=== PATIENT | male | born 1940 | race Caucasian/White ===

== ENCOUNTER 2016-05-03 01:45 | Emergency (ER) | payer OTHER ==
[2016-05-03] MEDS ORDERED: ASPIRIN 81 MG CHEWABLE TAB PO ONE (01:55)
--- NOTE | 2016-05-03 01:59 | CPEKG ---
Heart Rate: 87 RR Interval: 690 P-R Interval: 156 QRSD Interval: 104 QT Interval: 432 QTC Interval: 520 P [place]: 62 QRS [place]: -11 T Wave [place]: 35 EKG Severity - ABNORMAL ECG - EKG Impression: SINUS RHYTHM EKG Impression: MULTIPLE VENTRICULAR PREMATURE COMPLEXES EKG Impression: PROBABLE LEFT ATRIAL ABNORMALITY EKG Impression: PROLONGED QT INTERVAL Electronically Signed By: Althea Conte 03-May-2016 07:37:02
[2016-05-03 02:00] LABS: % IMMATURE GRANULYOCYTES 0.4 % (0.0-1.1); ABSOLUTE IMMATURE GRANULOCYTES 0.04 10^3/uL (0.00-0.10); ADD DIFF? NO; ADD MORPH? NO; ADD SCAN? NO; ATYPICAL LYMPHOCYTE FLAG 0 (0-99); FRAGMENT RBC FLAG 0 (0-99); HEMATOCRIT 35.1 % (40.0-51.0); HEMOGLOBIN 10.9 g/dL (13.7-17.5); LEFT SHIFT FLG 0 (0-99); LIPEMIA HEMOLYSIS FLAG 80 (0-99); MEAN CELL HEMOGLOBIN 29.6 pg (27.9-34.1); MEAN CELL HEMOGLOBIN CONCENTR. 31.1 g/dL (32.4-36.7); MEAN CELL VOLUME 95.4 fL (81.5-99.8); MEAN PLATELET VOLUME 10.1 fL (8.7-11.7); PLATELET CLUMPS FLAG 10 (0-99); PLATELET COUNT 211 10^3/uL (150-400); RED BLOOD CELL COUNT 3.68 10^6/uL (4.40-6.38); RED CELL DISTRIBUTION WIDTH 13.7 % (11.5-15.2)
[2016-05-03 02:10] LABS: ANION GAP 14 mEq/L (8-16); CALCIUM 9.1 mg/dL (8.5-10.4); CARBON DIOXIDE 31 mEq/l (22-31); CHLORIDE 95 mEq/L (97-110); CREATININE 5.5 mg/dL (0.7-1.3); GLOMERULAR FILTRATION RATE 10; GLUCOSE 266 mg/dL (70-100); POTASSIUM 4.6 mEq/L (3.5-5.2); SODIUM 140 mEq/L (134-144)
[2016-05-03 02:22] LABS: TROPONIN I 0.028 ng/mL (0-0.034)
[2016-05-03 02:29] LABS: INR 1.06 (0.83-1.16); PROTIME(PATIENT) 13.7 SEC (12.0-15.0)
--- NOTE | 2016-05-03 04:57 | EDPHY ---
H & P Stated Complaint: CP beginning at 0000 tonight Time Seen by Provider: 05/03/16 01:48 HPI/ROS: HPI The patient presents brought in by ambulance for chest pain which began at approximately midnight tonight while he was lying in bed. The pain is left- sided, sharp in nature, does not radiate and has gotten progressively better since the onset. He has had 2 or 3 episodes of this pain in the past. He does not have shortness of breath, nausea, vomiting, diaphoresis, dizziness. He is brought in by ambulance and received nitroglycerin in the field. The patient was admitted in February of 2016 for similar chest pain. He had a workup with negative troponins and EKGs. 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 The cardiac catheterization was not performed as it was thought that his chest pain was noncardiac. His chest pain was thought to be due to his advanced pulmonary disease. REVIEW OF SYSTEMS Constitutional: No fever, no chills. Eyes: No discharge. ENT: No sore throat. Cardiovascular: +chest pain, no palpitations. Respiratory: No cough, no shortness of breath. Gastrointestinal: No abdominal pain, no vomiting. Genitourinary: No hematuria. Musculoskeletal: No back pain. Skin: No rashes. Neurological: No headache. PMHx: End-stage renal disease, diabetes, known CAD Soc Hx: Lives at [facility] PHYSICAL General Appearance: Alert, no distress Eyes: Pupils equal and round no pallor or injection ENT, Mouth: Mucous membranes moist Respiratory: There are no retractions, lungs are clear to auscultation Cardiovascular: Regular rate and rhythm Gastrointestinal: Abdomen is soft and non-tender, no masses, bowel sounds normal Neurological: A&O, moves all extremities Skin: Warm and dry, no rashes Musculoskeletal: Neck is supple non tender Extremities: symmetrical, full range of motion, AV fistula with palpable thrill in left upper extremity Psychiatric: Patient is oriented X 3, there is no agitation Source: Patient, EMS - Personal History Current Tetanus/Diphtheria Vaccine: Unsure Current Tetanus Diphtheria and Acellular Pertussis (TDAP): Unsure - Medical/Surgical History Hx Asthma: No Hx Chronic Respiratory Disease: Yes Hx Diabetes: Yes Hx Cardiac Disease: Yes Hx Renal Disease: Yes Hx Cirrhosis: No Hx Alcoholism: No Hx HIV/AIDS: No Hx Splenectomy or Spleen Trauma: No Other PMH: dementia, renal failure, DM2, HTN, COPD, GERD, chronic resp failure, orthostatic hypotension, hx falls - Social History Smoking Status: Unknown if ever smoked Constitutional: Initial Vital Signs Temperature (C) 37.4 C 05/03/16 01:47 Heart Rate 86 05/03/16 01:47 Respiratory Rate 18 05/03/16 01:47 Blood Pressure 133/78 H 05/03/16 01:47 O2 Sat (%) 92 05/03/16 01:47 O2 Delivery Mode Nasal Cannula O2 (L/minute) 6 Allergies/Adverse Reactions: lisinopril Allergy (Verified 11/14/15 06:13) Home Medications: Medication Instructions Recorded Acetaminophen [Tylenol 325mg (*)] 650 mg PO Q6 PRN 11/14/15 Pantoprazole Sodium [Protonix] 20 mg PO DAILY 11/14/15 QUEtiapine FUMARATE [Seroquel 25 12.5 mg PO HS 11/14/15 mg (*)] Ondansetron Odt [Zofran Odt 4 mg 4 mg PO Q6 PRN 01/01/16 (*)] Sodium Polystyrene Sulfonate 5 gm PO DAILY #0 powder 01/07/16 [Kayexalate] Atorvastatin Calcium 10 mg PO DAILY #30 tablet 02/16/16 Clopidogrel Bisulfate [Plavix (*)] 75 mg PO DAILY 02/16/16 Escitalopram Oxalate [Lexapro] 20 mg PO DAILY 02/16/16 Gabapentin [Neurontin 100 MG (*)] 100 mg PO BID 02/16/16 Insulin Glargine [Lantus 100 20 units SC HS 02/16/16 UNITS/ML (*)] Insulin Lispro [Humalog] 0 - 12 unit SQ BID 02/16/16 Ipratropium/Albuterol [Duoneb (*)] 3 ml IH Q6 PRN 02/16/16 Ipratropium/Albuterol [Duoneb (*)] 3 ml IH QID #0 deyvial 02/16/16 Lactulose 20 gm PO DAILY PRN 02/16/16 Metoprolol Succinate 25 mg PO DAILY 02/16/16 Nitroglycerin [Nitrostat 0.4 mg 0.4 mg SL Q5M PRN 02/16/16 (*)] [place]-3 Fatty Acids [Fish Oil 1000 1,000 mg PO DAILY 02/16/16 mg (*)] Pantoprazole Sodium [Protonix 40mg 40 mg PO DAILY 02/16/16 (*)] Polyethylene Glycol 3350 [Miralax 17 gm PO DAILY PRN 02/16/16 17 gm (*)] Medical Decision Making - Diagnostics EKG Interpretation: EKG: Complete interpretation has been separately recorded in the [employer] archive. Summary impression: Normal sinus rhythm, no ST segment changes Imaging: Chest x-ray two views demonstrates cardiomegaly, unchanged from prior chest x- ray, interpreted by me, radiology interpretation is pending. ED Course/Re-evaluation: The patient was monitored in the emergency room for several hours. He had no ongoing chest pain. Serial troponins were negative with no EKG changes. Other labs were unremarkable except for elevated BNP which she has had previously. Chest x-ray showed no signs of pulmonary edema or fluid overload. Given the patient's recent admission for identical chest pain with negative workup and plan for medical management with no cardiac catheterization, I do not think his presentation today warrants admission. He has no ongoing pain. I doubt this pain is cardiac. I feel it is more likely related to his pulmonary disease verses muscular in nature. His vital signs have remained stable while he is here. I have offered him admission, however he declines as well. He will be discharged in good condition. Differential Diagnosis: This is a 75-year-old man from [facility] with past medical history of end- stage renal disease, chronic hypoxic respiratory failure, diabetes, CAD who presents with an episode of chest pain which is left-sided sharp and now mostly resolved. This occurred at rest, there are no other symptoms, it feels like his previous episodes of chest pain. Differential diagnosis includes ACS, musculoskeletal pain, GERD, costochondritis , less likely pulmonary embolism less likely dissection. - Data Points Laboratory Results: Laboratory Results 05/03/16 01:50 05/03/16 01:50 05/03/16 05/03/16 05/03/16 03:52 01:50 01:50 WBC RBC Hgb Hct MCV MCH MCHC RDW Plt Count MPV Neut % (Auto) Lymph % (Auto) [place] % (Auto) Eos % (Auto) Baso % (Auto) Nucleat RBC Rel Count Absolute Neuts (auto) Absolute Lymphs (auto) Absolute Monos (auto) Absolute Eos (auto) Absolute Basos (auto) Absolute Nucleated RBC Immature Gran % Immature Gran # PT 13.7 SEC SEC (12.0-15.0) INR 1.06 (0.83-1.16) Sodium 140 mEq/L mEq/L (134-144) Potassium 4.6 mEq/L mEq/L (3.5-5.2) Chloride 95 mEq/L L mEq/L (97-110) Carbon Dioxide 31 mEq/l mEq/l (22-31) Anion Gap 14 mEq/L mEq/L (8-16) BUN 37 mg/dL H mg/dL (7-23) Creatinine 5.5 mg/dL H mg/dL (0.7-1.3) Estimated GFR 10 Glucose 266 mg/dL H mg/dL (70-100) Calcium 9.1 mg/dL mg/dL (8.5-10.4) Troponin I 0.034 ng/mL ng/mL 0.028 ng/mL ng/mL (0-0.034) (0-0.034) NT-Pro-B Natriuret Pep 2290 pg/mL H pg/mL (0-450) 05/03/16 01:50 WBC 11.15 10^3/uL H 10^3/uL (3.80-9.50) RBC 3.68 10^6/uL L 10^6/uL (4.40-6.38) Hgb 10.9 g/dL L g/dL (13.7-17.5) Hct 35.1 % L % (40.0-51.0) MCV 95.4 fL fL (81.5-99.8) MCH 29.6 pg pg (27.9-34.1) MCHC 31.1 g/dL L g/dL (32.4-36.7) RDW 13.7 % % (11.5-15.2) Plt Count 211 10^3/uL 10^3/uL (150-400) MPV 10.1 fL fL (8.7-11.7) Neut % (Auto) 81.6 % H % (39.3-74.2) Lymph % (Auto) 7.8 % L % (15.0-45.0) [place] % (Auto) 6.2 % % (4.5-13.0) Eos % (Auto) 3.6 % % (0.6-7.6) Baso % (Auto) 0.4 % % (0.3-1.7) Nucleat RBC Rel Count 0.0 % % (0.0-0.2) Absolute Neuts (auto) 9.10 10^3/uL H 10^3/uL (1.70-6.50) Absolute Lymphs (auto) 0.87 10^3/uL L 10^3/uL (1.00-3.00) Absolute Monos (auto) 0.69 10^3/uL 10^3/uL (0.30-0.80) Absolute Eos (auto) 0.40 10^3/uL 10^3/uL (0.03-0.40) Absolute Basos (auto) 0.05 10^3/uL 10^3/uL (0.02-0.10) Absolute Nucleated RBC 0.00 10^3/uL 10^3/uL (0-0.01) Immature Gran % 0.4 % % (0.0-1.1) Immature Gran # 0.04 10^3/uL 10^3/uL (0.00-0.10) PT INR Sodium Potassium Chloride Carbon Dioxide Anion Gap BUN Creatinine Estimated GFR Glucose Calcium Troponin I NT-Pro-B Natriuret Pep Medications Given: Discontinued Medications Aspirin (Aspirin) 324 mg PO EDNOW ONE Stop: 05/03/16 01:56 Last Admin: 05/03/16 02:07 Dose: 324 mg Departure - Departure Disposition: Home, Routine, Self-Care Clinical Impression: ESRD (end stage renal disease) Chest pain Qualifiers: Chest pain type: unspecified Qualified Code(s): R07.9 - Chest pain, unspecified Condition: Good Instructions: Chest Pain (ED) Additional Instructions: If your chest pain returns, you should return to the emergency room. Otherwise , please follow-up with your coroner forensic technician tomorrow. Referrals: AMANDA BAILEY [Primary Care Provider] - As per Instructions
[2016-05-03 05:36] VITALS: PULSE 79; RESP 19; O2SAT 92
[2016-05-03 06:17] VITALS: BP 124/82; TEMP 97.7
== END 2016-05-03 06:15 | disposition home or self-care (01) ==
LOC: EDUNIT#
DX: K21.9 Gastro-esophageal reflux disease without esophagitis (principal); I12.0 Hypertensive chronic kidney disease with stage 5 chronic kidney disease or end stage renal disease; N18.6 End stage renal disease; E11.9 Type 2 diabetes mellitus without complications; J44.9 Chronic obstructive pulmonary disease, unspecified; Z79.4 Long term (current) use of insulin

== ENCOUNTER 2016-06-05 12:30 | Inpatient (IN) | payer OTHER ==
--- NOTE | 2016-06-05 12:39 | CPEKG ---
Heart Rate: 76 RR Interval: 789 P-R Interval: 160 QRSD Interval: 100 QT Interval: 448 QTC Interval: 504 P [place]: 63 QRS [place]: 5 T Wave [place]: 40 EKG Severity - ABNORMAL ECG - EKG Impression: SINUS RHYTHM EKG Impression: MULTIPLE VENTRICULAR PREMATURE COMPLEXES EKG Impression: PROLONGED QT INTERVAL Electronically Signed By: Britni Gillespie 05-Jun-2016 23:17:54
[2016-06-05] MEDS ORDERED: ASPIRIN 81 MG CHEWABLE TAB PO ONE (12:45)
--- NOTE | 2016-06-05 12:51 | EDPHY ---
H & P Stated Complaint: abd pain/ cp HPI/ROS: HPI CHIEF COMPLAINT: Chest pain, abdominal pain HISTORY OF PRESENT ILLNESS: This patient is a 75-year-old male significant past medical history for end-stage renal disease on dialysis //wed, insulin- dependent diabetes, COPD, diastolic heart failure, CVA, lives at [facility], left arm AV fistula, presents to the emergency room with 2 major complaints left -sided chest discomfort the strep is a sharp pain also lower abdominal pain periumbilical that he describes a sharp pain. Patient states around 9:50 a.m. the patient developed lower abdominal pain very intense 10 in 10 sharp stabbing in nature. Tells me this pain moved up through his abdomen into his left side of his chest. No nausea no vomiting no fever no shortness of breath. No pleuritic pain. He does tell me he got dialysis today. Denies fever. patient was given nitroglycerin prior to arrival by hi caretakers at [facility], he tells me this relieved his chest pain. Past Medical History: End-stage renal disease, insulin-dependent diabetes, diastolic heart failure, COPD, CVA Past Surgical History: Left arm AV fistula Social History: Lives at [facility] denies daily drugs alcohol tobacco products Family History: Noncontributory ROS REVIEW OF SYSTEMS: A comprehensive 10 point review of systems is otherwise negative aside from elements mentioned in the history of present illness. Exam Constitutional appears well nontoxic, triage nursing summary reviewed, vital signs reviewed, awake/alert. Eyes normal conjunctivae and sclera, EOMI, PERRLA. HENT normal inspection, atraumatic, moist mucus membranes, no epistaxis, neck supple/ no meningismus, no raccoon eyes. Respiratory clear to auscultation bilaterally, normal breath sounds, no respiratory distress, no wheezing. Cardiovascular rate normal, regular rhythm, no murmur, no edema, distal pulses normal. Gastrointestinal soft, non-tender, no rebound, no guarding, normal bowel sounds, no distension, no pulsatile mass. Genitourinary no CVA tenderness. Musculoskeletal left upper extremity: Left upper extremity AV fistula, no midline vertebral tenderness, full range of motion, no calf swelling, no tenderness of extremities, no meningismus, good pulses, neurovascularly intact. Skin pink, warm, & dry, no rash, skin atraumatic. Neurologic awake, alert and oriented x 3, AAOx3, moves all 4 extremities equally, motor intact, sensory intact, CN II-XII intact, normal cerebellar, normal vision, normal speech. Psychiatric normal mood/affect. Heme/Lymph/Immune no lymphadenopathy. Differential diagnosis includes but is not limited to: ACS, atypical chest pain , pneumothorax, pneumonia, pulmonary embolism, aortic dissection, congestive heart failure, tumor, musculoskeletal pain, esophageal pain, GERD, peptic ulcer disease, pancreatitis Bowel obstruction, appendicitis, gallbladder disease, diverticulitis, colitis, enteritis, perforated viscus, gastritis, GERD, esophagitis, urinary tract infection, pyelonephritis, kidney stones Medical Decision Making: This patient had an IV established obtain blood work patient be placed on full delivery room clerk he will need EKG, chest x-ray check troponin, CT scan of chest and abdomen pelvis without contrast to help with delineate abdominal pain and chest pain. Re-evaluation: EKG interpretation by me on record in [facility] system. Impression time of EKG 1237 this is sinus rhythm rate of 76 PVC present. QT interval noted to be 448 otherwise I do not appreciate acute ischemic changes specifically no ST elevation, ST depression. 1332: re-examination at this time this patient is resting comfortably no acute distress. No chest pain. ED x-ray chest one view: Cardiomegaly present. Otherwise clear lung kinney. Image interpreted by myself. No free air under the diaphragm. CT scan of the chest without IV contrast. The results of the study are negative for acute abnormality The study was read by Dr. stevens I viewed the images myself on the PACS system. CT scan of the abdomen pelvis without IV contrast. The results of the study are negative for acute abnormality The study was read by Dr. stevens. I viewed the images myself on the PACS system. 1413: This patient had chest pain left-sided as well as abdominal pains unclear etiology. His troponin is negative EKG is nonischemic. X-ray does not show anything acute. His CT scans of his chest abdomen pelvis without contrast due to him being on dialysis is pending. Did tell me that he got dialysis today however his showed up and told me that he is due for dialysis tomorrow. He does not appear in any distress her volume overload. Patient be admitted to the hospitalist service I specifically spoke with Dr. Kirkpatrick who agrees to admit the patient for chest pain ACS rule out with serial troponins. Patient will most likely need dialysis tomorrow while in the hospital. It was noted that he did have slightly hyperkalemia I did give him calcium 1 amp of bicarb. No evidence that he has an acute volume overload or has life- threatening hyperkalemia at this time. His EKG is similar to his previous EKGs and has a noted prolonged QT. 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 He was complaining of very low abdominal pain and left-sided chest pain. Patient be admitted to hospitalist service for serial enzymes cardiac rule out. I do not have a great explanation for his lower abdominal pain at this time. Source: Patient, EMS - Personal History Current Tetanus Diphtheria and Acellular Pertussis (TDAP): Yes - Medical/Surgical History Hx Asthma: No Hx Chronic Respiratory Disease: Yes Hx Diabetes: Yes Hx Cardiac Disease: Yes Hx Renal Disease: Yes Hx Cirrhosis: No Hx Alcoholism: No Hx HIV/AIDS: No Hx Splenectomy or Spleen Trauma: No Other PMH: dementia, renal failure, DM2, HTN, COPD, GERD, chronic resp failure, orthostatic hypotension, hx falls - Social History Smoking Status: Unknown if ever smoked Constitutional: Initial Vital Signs Temperature (C) 36.4 C 06/05/16 12:43 Heart Rate 71 06/05/16 12:43 Respiratory Rate 22 H 06/05/16 12:43 Blood Pressure 162/71 H 06/05/16 12:43 O2 Sat (%) 92 06/05/16 12:43 O2 Delivery Mode Nasal Cannula O2 (L/minute) 4 Allergies/Adverse Reactions: lisinopril Allergy (Verified 11/14/15 06:13) Home Medications: Medication Instructions Recorded Acetaminophen [Tylenol 325mg (*)] 650 mg PO Q6 PRN 11/14/15 Pantoprazole Sodium [Protonix] 20 mg PO DAILY 11/14/15 QUEtiapine FUMARATE [Seroquel 25 12.5 mg PO HS 11/14/15 mg (*)] Ondansetron Odt [Zofran Odt 4 mg 4 mg PO Q6 PRN 01/01/16 (*)] Sodium Polystyrene Sulfonate 5 gm PO DAILY #0 powder 01/07/16 [Kayexalate] Atorvastatin Calcium 10 mg PO DAILY #30 tablet 02/16/16 Clopidogrel Bisulfate [Plavix (*)] 75 mg PO DAILY 02/16/16 Escitalopram Oxalate [Lexapro] 20 mg PO DAILY 02/16/16 Gabapentin [Neurontin 100 MG (*)] 100 mg PO BID 02/16/16 Insulin Glargine [Lantus 100 20 units SC HS 02/16/16 UNITS/ML (*)] Insulin Lispro [Humalog] 0 - 12 unit SQ BID 02/16/16 Ipratropium/Albuterol [Duoneb (*)] 3 ml IH Q6 PRN 02/16/16 Ipratropium/Albuterol [Duoneb (*)] 3 ml IH QID #0 deyvial 02/16/16 Lactulose 20 gm PO DAILY PRN 02/16/16 Metoprolol Succinate 25 mg PO DAILY 02/16/16 Nitroglycerin [Nitrostat 0.4 mg 0.4 mg SL Q5M PRN 02/16/16 (*)] [place]-3 Fatty Acids [Fish Oil 1000 1,000 mg PO DAILY 02/16/16 mg (*)] Pantoprazole Sodium [Protonix 40mg 40 mg PO DAILY 02/16/16 (*)] Polyethylene Glycol 3350 [Miralax 17 gm PO DAILY PRN 02/16/16 17 gm (*)] Medical Decision Making - Data Points Laboratory Results: Laboratory Results 06/05/16 12:40 06/05/16 12:40 06/05/16 06/05/16 06/05/16 12:40 12:40 12:40 WBC 7.98 10^3/uL 10^3/uL (3.80-9.50) RBC 4.10 10^6/uL L 10^6/uL (4.40-6.38) Hgb 11.6 g/dL L g/dL (13.7-17.5) Hct 37.6 % L % (40.0-51.0) MCV 91.7 fL fL (81.5-99.8) MCH 28.3 pg pg (27.9-34.1) MCHC 30.9 g/dL L g/dL (32.4-36.7) RDW 15.0 % % (11.5-15.2) Plt Count 184 10^3/uL 10^3/uL (150-400) MPV 10.2 fL fL (8.7-11.7) Neut % (Auto) 74.9 % H % (39.3-74.2) Lymph % (Auto) 12.7 % L % (15.0-45.0) [place] % (Auto) 7.1 % % (4.5-13.0) Eos % (Auto) 4.0 % % (0.6-7.6) Baso % (Auto) 0.9 % % (0.3-1.7) Nucleat RBC Rel Count 0.0 % % (0.0-0.2) Absolute Neuts (auto) 5.98 10^3/uL 10^3/uL (1.70-6.50) Absolute Lymphs (auto) 1.01 10^3/uL 10^3/uL (1.00-3.00) Absolute Monos (auto) 0.57 10^3/uL 10^3/uL (0.30-0.80) Absolute Eos (auto) 0.32 10^3/uL 10^3/uL (0.03-0.40) Absolute Basos (auto) 0.07 10^3/uL 10^3/uL (0.02-0.10) Absolute Nucleated RBC 0.00 10^3/uL 10^3/uL (0-0.01) Immature Gran % 0.4 % % (0.0-1.1) Immature Gran # 0.03 10^3/uL 10^3/uL (0.00-0.10) PT 13.1 SEC SEC (12.0-15.0) INR 1.00 (0.83-1.16) APTT 25.4 SEC SEC (23.0-38.0) Sodium 144 mEq/L mEq/L (134-144) Potassium 5.4 mEq/L H mEq/L (3.5-5.2) Chloride 97 mEq/L mEq/L (97-110) Carbon Dioxide 31 mEq/l mEq/l (22-31) Anion Gap 16 mEq/L mEq/L (8-16) BUN 47 mg/dL H mg/dL (7-23) Creatinine 5.7 mg/dL H mg/dL (0.7-1.3) Estimated GFR 10 Glucose 168 mg/dL H mg/dL (70-100) Calcium 9.2 mg/dL mg/dL (8.5-10.4) Magnesium 2.2 mg/dL mg/dL (1.6-2.3) Total Bilirubin 0.5 mg/dL mg/dL (0.1-1.4) Conjugated Bilirubin 0.4 mg/dL mg/dL (0.0-0.5) Unconjugated Bilirubin 0.1 mg/dL mg/dL (0.0-1.1) AST 27 IU/L IU/L (17-59) ALT 32 IU/L IU/L (21-72) Alkaline Phosphatase 72 IU/L IU/L (38-126) Creatine Kinase 31 IU/L IU/L (0-224) CK-MB (CK-2) Fraction 1.33 ng/mL ng/mL (0-3.19) Troponin I 0.023 ng/mL ng/mL (0-0.034) NT-Pro-B Natriuret Pep 1480 pg/mL H pg/mL (0-450) Total Protein 7.8 g/dL g/dL (6.3-8.2) Albumin 4.3 g/dL g/dL (3.5-5.0) Lipase 468.0 IU/L H IU/L (23-300) Medications Given: Discontinued Medications Aspirin (Aspirin) 324 mg PO EDNOW ONE Stop: 06/05/16 12:46 Last Admin: 06/05/16 12:58 Dose: Not Given Calcium Gluconate 2 gm/ (Dextrose) 70 mls @ 140 mls/hr IV EDNOW ONE Stop: 06/05/16 13:53 Last Admin: 06/05/16 14:13 Dose: 70 mls Sodium Bicarbonate (Sodium Bicarbonate) 50 meq IVP EDNOW ONE Stop: 06/05/16 13:25 Last Admin: 06/05/16 14:13 Dose: 50 meq Departure - Departure Disposition: [facility] Acute Clinical Impression: Hyperkalemia Chest pain Qualifiers: Chest pain type: unspecified Qualified Code(s): R07.9 - Chest pain, unspecified Condition: Fair
[2016-06-05 12:54] LABS: % IMMATURE GRANULYOCYTES 0.4 % (0.0-1.1); ABSOLUTE IMMATURE GRANULOCYTES 0.03 10^3/uL (0.00-0.10); ADD DIFF? NO; ADD MORPH? NO; ADD SCAN? NO; ATYPICAL LYMPHOCYTE FLAG 0 (0-99); FRAGMENT RBC FLAG 0 (0-99); HEMATOCRIT 37.6 % (40.0-51.0); HEMOGLOBIN 11.6 g/dL (13.7-17.5); LEFT SHIFT FLG 0 (0-99); LIPEMIA HEMOLYSIS FLAG 80 (0-99); MEAN CELL HEMOGLOBIN 28.3 pg (27.9-34.1); MEAN CELL HEMOGLOBIN CONCENTR. 30.9 g/dL (32.4-36.7); MEAN CELL VOLUME 91.7 fL (81.5-99.8); MEAN PLATELET VOLUME 10.2 fL (8.7-11.7); PLATELET CLUMPS FLAG 10 (0-99); PLATELET COUNT 184 10^3/uL (150-400)
[2016-06-05 13:03] LABS: PROTIME(PATIENT) 13.1 SEC (12.0-15.0)
[2016-06-05 13:04] LABS: APTT 25.4 SEC (23.0-38.0)
[2016-06-05 13:11] LABS: ALANINE AMINOTRANSFERASE 32 IU/L (21-72); ALBUMIN 4.3 g/dL (3.5-5.0); ALKALINE PHOSPHATASE 72 IU/L (38-126); ANION GAP 16 mEq/L (8-16); ASPARTATE AMINOTRANSFERASE 27 IU/L (17-59); BILIRUBIN,TOTAL 0.5 mg/dL (0.1-1.4); BILIRUBIN-CONJUGATED 0.4 mg/dL (0.0-0.5); BILIRUBIN-UNCONJUGATED 0.1 mg/dL (0.0-1.1); CALCIUM 9.2 mg/dL (8.5-10.4); CARBON DIOXIDE 31 mEq/l (22-31); CHLORIDE 97 mEq/L (97-110); CREATININE 5.7 mg/dL (0.7-1.3); GLOMERULAR FILTRATION RATE 10; GLUCOSE 168 mg/dL (70-100); MAGNESIUM 2.2 mg/dL (1.6-2.3); POTASSIUM 5.4 mEq/L (3.5-5.2); SODIUM 144 mEq/L (134-144); TOTAL PROTEIN 7.8 g/dL (6.3-8.2)
[2016-06-05 13:21] LABS: CREATINE KINASE-MB FRACTION 1.33 ng/mL (0-3.19); TROPONIN I 0.023 ng/mL (0-0.034)
[2016-06-05] MEDS ORDERED: CALCIUM GLUCONATE 2 GM in D5W 50 ML IV ONE (13:24)
[2016-06-05] MEDS ORDERED: SODIUM BICARBONATE 50 MEQ/50 ML SYR IVP ONE (13:24)
[2016-06-05] MEDS ORDERED: ZOLPIDEM TARTRATE 5 MG TAB PO PRN (14:52)
[2016-06-05] MEDS ORDERED: ONDANSETRON 4 MG/2 ML VIAL IVP PRN (14:52)
[2016-06-05] MEDS ORDERED: ACETAMINOPHEN 325 MG TAB PO PRN (14:52)
--- NOTE | 2016-06-05 15:06 | PDGENHP ---
History and Physical History and Physical: HISTORY AND PHYSICAL CC:Abdominal pain HISTORY: This patient was sent from his dialysis unit because of chest pain although the patient's main complaint was that he was having abdominal pain. This patient states that he was feeling well until about [facility] through his dialysis when started to notice a crampy pain in the suprapubic area of the abdomen medially. He says this felt like 3 are inches inside his belly with bloating. There was mild nausea but no shortness of breath. He did not feel fevers. He says his last bowel movement was at noon today. He has had no constipation prior to that. He has not eaten anything today but had eaten his meals normally as best she recalls yesterday. Patient says while he was having this pain in the lower abdomen it started to migrate up through the abdomen settling in at the left upper abdomen low left chest. At this point his dialysis staff gave him some nitroglycerin. It is very difficult to tell whether the nitroglycerin had any effect or not. It should be noted that this patient does have some degree of memory deficit and the details of the above story are hard to confirm, however he told very similar story to Dr. Rain the ER physician here today. Patient says that overall he has been feeling fine other than he has symptoms recently. He has not been having any trouble with dialysis recently. He does state that he had a fall a couple weeks ago while using his walker and has stopped using his walker since then because he feels the walker had something to do with it. It sounds like this is a 2 wheeled walker without a seat. There is a prior history of gait instability and falls. The patient apparently lives at [facility]. 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 Previous records here note that the most form had conflicting check mukherjee during evaluation here in 2016, with 1 box checked indicate no resuscitation but another box marked to check resuscitation. During his most recent hospital admission he had orders for full resuscitation, and he requests that now MEDICATIONS: The patients list has not yet been reconciled by our clinical pharmacist in the EMR, as we are waiting for [facility] to for that list and the patient does not recall them in detail himself PHYSICAL EXAMINATION: Vital Signs: mild hypertension, otherwise stable without fever Wet Process Technician: sinus rhythm on my review in the ER Examination: General: alert, oriented, some memory deficit but otherwisegood mentation, relaxed Skin: warm, dry, good color, no rash HEENT: normal Neck: no mass or jvd Resps: relaxed Lungs: clear breath sounds Heart: regular, no murmur Abdomen: soft, nondistended, nontender, +BS, no mass Upper Extremities: his left arm AV fistula looks good and has palpable thrill, otherwise normal Lower Extremities: no edema, warm ; no diabetic foot abnormalities or other skin lesions of concern No Bleeding or bruising Neurologic: normal speech/language, 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 In the abdomen there is calcific arteriosclerosis of the aorta and iliac vessels. There is not a radiologist reading of this abdominal CT yet. I do not see any other particular concerning abnormalities have but will review the radiology report when the suspect. The kidneys are atrophic and there is a small cyst in the left. The bowel is in normal caliber with no inflammatory signs. 12 LEAD EKG DONE IN THE ER, my personal review of images did: Sinus rhythm with some PVCs, nothing ischemic and no other abnormalities. I am unaware if there was any EKG done at the dialysis unit but I have not been able to find 1 so far ASSESSMENT: -ABDOMINAL PAIN, CURRENTLY RESOLVED, UNCERTAIN ETIOLOGY -CHEST PAIN REPRESENTED BY THE DIALYSIS STAFF, CURRENTLY RESOLVED UNCERTAIN ETIOLOGY -RECENT FALL, PATIENT STOPPED USING HIS WALKER 2 WEEKS AGO BUT PREVIOUS HISTORY OF GAIT INSTABILITY AND FALLS -END-STAGE RENAL DISEASE, RECEIVED DIALYSIS TODAY ON HIS USUAL SCHEDULE -MILD HYPERKALEMIA -COPD AND CHRONIC RESPIRATORY FAILURE the patient certainly seems to have had an episode of abdominal pain which was crampy in lower in location that is resolved. All the PLANS: - observe overnight on the EACU or portable trackman unit, PA rule out protocol -Will plan on nuclear stress test with Lexiscan in the morning unless troponins or clinical course indicate other approach -Await CT abdomen report from radiology -Await medicine reconciliation his home medicine list and ordered appropriate medicines -He will need physical and occupational therapy evaluations. I suspect that he really should be using his walker which she stopped using after he fell 2 weeks ago. I do not think this will require that he stay here Beyond observation as he lives at [facility] - he did receive dialysis today and I do not anticipate he will need dialysis before his next scheduled outpatient session in 3 days I have reviewed the patient's case in detail with Dr. Jordan I have reviewed the patient's past medical records as part of this assessment, including old hospital records with physician notes and labs
[2016-06-05] MEDS ORDERED: GLUCAGON HUMAN RECOMBINANT 1 MG IJ PRN (19:14)
[2016-06-05] MEDS ORDERED: NON-FORMULARY NEW DRUG (Lactulose [Lactulose] 20 GM) PO PRN (19:14)
[2016-06-05] MEDS ORDERED: NITROGLYCERIN 0.4 MG BTL SL PRN (19:14)
[2016-06-05] MEDS ORDERED: ONDANSETRON DISINTEGRATING 4 MG TAB PO PRN (19:14)
[2016-06-05] MEDS ORDERED: GLUCOSE-INSTA 15 GM TUBE PO PRN (19:14)
[2016-06-05] MEDS ORDERED: POLYETHYLENE GLYCOL 3350 17 GM PKT PO PRN (19:14)
[2016-06-05] MEDS ORDERED: LACTULOSE 20 GM/30 ML UDCUP PO PRN (19:24)
[2016-06-05] MEDS ORDERED: GLUCAGON,HUMAN RECOMBINANT 1 MG VIAL SC PRN (19:29)
[2016-06-05] MEDS: ATORVASTATIN CALCIUM 20 MG TAB PO SCH (19:46)
[2016-06-05] MEDS: GABAPENTIN 100 MG CAP PO SCH (19:46)
[2016-06-05] MEDS: INSULIN GLARGINE 100 UNITS/ML SYRINGE SC SCH (21:26)
[2016-06-05] MEDS: HEPARIN 5,000 UNIT/0.5 ML SYR SC SCH (21:26)
[2016-06-05] MEDS: IPRATROPIUM/ALBUTEROL 3 ML DEYVIAL IH SCH (22:12)
[2016-06-06 05:33] LABS: ANION GAP 12 mEq/L (8-16); CALCIUM 9.5 mg/dL (8.5-10.4); CARBON DIOXIDE 30 mEq/l (22-31); CHLORIDE 98 mEq/L (97-110); CREATININE 5.9 mg/dL (0.7-1.3); GLOMERULAR FILTRATION RATE 9; GLUCOSE 103 mg/dL (70-100); MAGNESIUM 2.1 mg/dL (1.6-2.3); POTASSIUM 5.5 mEq/L (3.5-5.2); SODIUM 140 mEq/L (134-144)
[2016-06-06] MEDS: HEPARIN 5,000 UNIT/0.5 ML SYR SC SCH ×3 (06:07→20:20)
[2016-06-06] MEDS: IPRATROPIUM/ALBUTEROL 3 ML DEYVIAL IH SCH ×4 (08:20→20:31)
[2016-06-06] MEDS: METOPROLOL SUCCINATE XR 25 MG TAB PO SCH (09:07)
[2016-06-06] MEDS: OMEGA-3 FATTY ACIDS 1,000 MG CAP PO SCH (09:07)
[2016-06-06] MEDS: PANTOPRAZOLE SODIUM 40 MG TAB PO SCH (09:08)
[2016-06-06] MEDS: GABAPENTIN 100 MG CAP PO SCH ×2 (09:08→20:20)
[2016-06-06] MEDS: SERTRALINE HCL 100 MG TAB PO SCH (09:08)
[2016-06-06] MEDS: CLOPIDOGREL BISULFATE 75 MG TAB PO SCH (09:08)
[2016-06-06] MEDS: SODIUM POLYSTYRENE SULF 454 GM POWDER PO SCH (09:09)
[2016-06-06] MEDS: Sevelamer Carbonate [Renvela] 800 MG PO SCH ×3 (09:09→16:42)
[2016-06-06] MEDS ORDERED: REGADENOSON 0.4 MG/5 ML SYR IVP ONE (09:33)
--- NOTE | 2016-06-06 11:31 | CPR ---
[f rep st] NONINVASIVE CARDIAC PROCEDURE REPORT PROCEDURE: Pharmacologic stress test. The patient is not able to exercise, so he was given a stress test with pharmacologic nuclear protoc ol. He gave informed consent. His baseline EKG showed no significant abnormalities, and there were no d iagnostic changes with his pharmacologic stress test. He had no chest pain or chest tightness. Complications were none. Condition at the end of study, excellent. Nuclear images pending. /[id number]/MODL
[2016-06-06] MEDS ORDERED: METOPROLOL SUCCINATE XR 25 MG TAB PO ONE (11:56)
--- NOTE | 2016-06-06 16:16 | HOSPPROG ---
Hospitalist Progress Note Assessment/Plan: This is a 75-year-old male new to my care today with history of end-stage renal disease on hemodialysis presenting with: # ABDOMINAL PAIN left lower quadrant (Resolved) with evidence for air in the pancreatic duct on CT scan - I discussed this finding with Dr. Pineda from GI [facility] who recommends MRCP that can be potentially done as an outpatient. The patient's LFTs are currently within normal limits and he has no abdominal pain, so will defer workup at this time # Chest pain (Resolved ) -await nuclear imaging read -Recent fall, patient stopped using his walker 2 weeks ago but previous history of gait instability and falls - patient appears very weak and unsafe to discharge back to his current living situation. He has been seen by Physical therapy who are recommending custodial facility placement which is currently being investigated. -END-STAGE RENAL DISEASE, RECEIVED DIALYSIS TODAY ON HIS USUAL SCHEDULE - Nephrology consulted for hemodialysis -MILD HYPERKALEMIA - monitor -COPD AND CHRONIC RESPIRATORY FAILURE disposition: Patient is high risk and will require further hospitalization. Will change him to inpatient status Subjective: denies any chest pain. left lower quadrant abdominal pain has resolved. He is tolerating a regular diet. he is very weak and requiring assistance to get up from bed. Objective: Vital Signs Temp Pulse Resp BP Pulse Ox 36.9 C 76 18 164/94 H 93 06/06/16 16:00 06/06/16 16:00 06/06/16 16:00 06/06/16 16:00 06/06/16 16:00 Laboratory Results 06/06/16 04:01 06/05/16 06/06/16 06/07/16 05:59 05:59 05:59 Intake Total 400 450 Output Total 600 200 Balance -200 250 PT 13.1 SEC (12.0-15.0) 06/05/16 12:40 INR 1.00 (0.83-1.16) 06/05/16 12:40 - Physical Exam Constitutional: no apparent distress, appears nourished, not in pain Ears, Nose, Mouth, Throat: moist mucous membranes, hearing normal, ears appear normal, no oral mucosal ulcers Cardiovascular: regular rate and rhythym, no murmur, rub, or gallop Respiratory: no respiratory distress, reduced air movement, expiratory wheeze, No rhonchi Gastrointestinal: normoactive bowel sounds, soft, non-tender abdomen, no palpable masses, No odom's sign, No guarding, No rebound Skin: no rashes or abrasions, no fluctuance, no induration ICD10 Worksheet Patient Problems: Problems Problem Status Onset Hyperglycemia Acute Respiratory failure Acute End stage renal disease Acute Pneumonia Acute Fluid overload Acute Hyperkalemia Acute Renal failure Acute Syncope Acute Anemia Acute Chest pain Acute Chest pain Acute Hyperkalemia Acute
[2016-06-06] MEDS: QUEtiapine FUMARATE 25 MG TAB PO SCH (17:04)
[2016-06-06] MEDS: ATORVASTATIN CALCIUM 20 MG TAB PO SCH (20:20)
[2016-06-06] MEDS: INSULIN GLARGINE 100 UNITS/ML SYRINGE SC SCH (20:20)
[2016-06-07 05:08] LABS: % IMMATURE GRANULYOCYTES 0.4 % (0.0-1.1); ABSOLUTE IMMATURE GRANULOCYTES 0.03 10^3/uL (0.00-0.10); ADD DIFF? NO; ADD MORPH? NO; ADD SCAN? NO; ATYPICAL LYMPHOCYTE FLAG 0 (0-99); FRAGMENT RBC FLAG 0 (0-99); HEMATOCRIT 35.4 % (40.0-51.0); HEMOGLOBIN 10.9 g/dL (13.7-17.5); LEFT SHIFT FLG 0 (0-99); LIPEMIA HEMOLYSIS FLAG 80 (0-99); MEAN CELL HEMOGLOBIN 28.6 pg (27.9-34.1); MEAN CELL HEMOGLOBIN CONCENTR. 30.8 g/dL (32.4-36.7); MEAN CELL VOLUME 92.9 fL (81.5-99.8); MEAN PLATELET VOLUME 10.5 fL (8.7-11.7); PLATELET CLUMPS FLAG 0 (0-99); PLATELET COUNT 171 10^3/uL (150-400); RED BLOOD CELL COUNT 3.81 10^6/uL (4.40-6.38)
[2016-06-07 05:31] LABS: ALANINE AMINOTRANSFERASE 30 IU/L (21-72); ALKALINE PHOSPHATASE 65 IU/L (38-126); ANION GAP 15 mEq/L (8-16); ASPARTATE AMINOTRANSFERASE 21 IU/L (17-59); BILIRUBIN,TOTAL 0.5 mg/dL (0.1-1.4); CALCIUM 8.9 mg/dL (8.5-10.4); CARBON DIOXIDE 26 mEq/l (22-31); CHLORIDE 101 mEq/L (97-110); CREATININE 6.4 mg/dL (0.7-1.3); GLOMERULAR FILTRATION RATE 9; GLUCOSE 87 mg/dL (70-100); POTASSIUM 5.7 mEq/L (3.5-5.2); SODIUM 142 mEq/L (134-144)
[2016-06-07] MEDS: HEPARIN 5,000 UNIT/0.5 ML SYR SC SCH ×3 (06:12→19:58)
[2016-06-07] MEDS: IPRATROPIUM/ALBUTEROL 3 ML DEYVIAL IH SCH ×4 (08:30→20:26)
[2016-06-07] MEDS: SERTRALINE HCL 100 MG TAB PO SCH (08:45)
[2016-06-07] MEDS: CLOPIDOGREL BISULFATE 75 MG TAB PO SCH (08:45)
[2016-06-07] MEDS: GABAPENTIN 100 MG CAP PO SCH ×2 (08:45→19:58)
[2016-06-07] MEDS: OMEGA-3 FATTY ACIDS 1,000 MG CAP PO SCH (08:45)
[2016-06-07] MEDS: SODIUM POLYSTYRENE SULF 454 GM POWDER PO SCH (08:46)
[2016-06-07] MEDS: METOPROLOL SUCCINATE XR 25 MG TAB PO SCH (08:46)
[2016-06-07] MEDS: PANTOPRAZOLE SODIUM 40 MG TAB PO SCH (08:46)
[2016-06-07] MEDS: Sevelamer Carbonate [Renvela] 800 MG PO SCH ×2 (08:48→11:46)
--- NOTE | 2016-06-07 10:08 | PDGENHP ---
History and Physical - Chief Complaint ESRD - History of Present Illness Mr. Astudillo is a 75 yo M with ESRD on HD TTS with Dr. Cool who was admitted two days ago with complaints of abdominal pain. Pt is unable to give me any information today about why he is in the hospital. Per admission note, pt had developed crampy abdominal pains while on HD and came to ER right after. However, he dialyzes TTS, and his last dialysis was , not Wednesday. CT shows some air in pancreatic duct, may get further testing done as outpatient. He also had chest pain on admission. Now he is having no pain, confused about why he is here, has no complaints. History Information - Allergies/Home Medication List Allergies/Adverse Reactions: lisinopril Allergy (Verified 11/14/15 06:13) Home Medications: Acetaminophen [Tylenol 325mg (*)] 650 mg PO Q6 PRN 11/14/15 [Last Taken Unknown] QUEtiapine FUMARATE [Seroquel 25 mg (*)] 12.5 mg PO DAILY@17 11/14/15 [Last Taken 06/04/16] Clopidogrel Bisulfate [Plavix (*)] 75 mg PO DAILY 02/16/16 [Last Taken 06/05/16] Gabapentin [Neurontin 100 MG (*)] 100 mg PO BID 02/16/16 [Last Taken 06/05/16] Insulin Glargine [Lantus 100 UNITS/ML (*)] 24 units SC HS 02/16/16 [Last Taken 06/04/16] Lactulose 20 gm PO DAILY PRN 02/16/16 [Last Taken Unknown] Nitroglycerin [Nitrostat 0.4 mg (*)] 0.4 mg SL Q5M PRN 02/16/16 [Last Taken Unknown] [place]-3 Fatty Acids [Fish Oil 1000 mg (*)] 1,000 mg PO DAILY 02/16/16 [Last Taken 06/05/16] Pantoprazole Sodium [Protonix 40mg (*)] 40 mg PO DAILY 02/16/16 [Last Taken ] Polyethylene Glycol 3350 [Miralax 17 gm (*)] 17 gm PO DAILY PRN 02/16/16 [Last Taken Unknown] Atorvastatin Calcium [Lipitor 20 mg (*)] 20 mg PO HS 06/05/16 [Last Taken ] Dextrose Oral Gel [Glucose Gel (*)] 15 gm PO ONCE PRN 06/05/16 [Last Taken Unknown] Glucagon,Human Recombinant [Glucagon Emergency Kit] 1 mg IJ DAILY PRN 06/05/16 [ Last Taken Unknown] Herbals/Supplements -Info Only 1 ea PO DAILY 06/05/16 [Last Taken Unknown] Insulin Lispro [humALOG LISPRO 100 units/ml (*)] 0 - 16 unit SC TIDMEAL [Last Taken 06/05/16 5 UNITS] Ipratropium/Albuterol [Duoneb (*)] 3 ml IH QID@08,12,16,20 06/05/16 [Last Taken 06/05/16 08:00] Metoprolol Succinate Xr [Toprol Xl 25 mg (*)] 25 mg PO DAILY 06/05/16 [Last Taken 06/05/16] Ondansetron Odt [Zofran Odt 4 mg (*)] 4 mg PO Q6HRS PRN 06/05/16 [Last Taken Unknown] Sertraline HCl [Zoloft 100mg (*)] 100 mg PO DAILY 06/05/16 [Last Taken 06/05/16] Sevelamer Carbonate [Renvela] 800 mg PO TID@,,17 06/05/16 [Last Taken 08:00] Sodium Polystyrene Sulf [Kionex SPS Powder (*)] 20 ml PO DAILY 06/05/16 [Last Taken 06/05/16] I have personally reviewed and updated: medical history - Past Medical History CHF, COPD, diabetes type 2, ESRD Additional medical history: reported MRSA infection at the AV fistula in October of 2015 - Surgical History Additional surgical history: av fistula placement left upper extremity - Family History Additional family history: patient denies any recent sick family contacts, he is unable to clarify whether any relatives have coronary artery disease - Social History Smoking Status: Unknown if ever smoked Additional social history: dependent in his ADLs, resides at [facility] Review of Systems ROS: 10pt was reviewed & negative except for what was stated in HPI & below Physical Exam Temp Pulse Resp BP Pulse Ox 36.6 C 70 18 133/77 H 94 06/07/16 08:00 06/07/16 08:38 06/07/16 08:38 06/07/16 08:00 06/07/16 08:38 O2 (L/minute) 5 Constitutional: no apparent distress, not in pain Eyes: PERRL, EOMI Ears, Nose, Mouth, Throat: moist mucous membranes, hearing normal Cardiovascular: regular rate and rhythym, pulses symmetric bilaterally, edema (+ 1 edema), other (LUE AVF with thrill and bruit appreciated) Peripheral Pulses: 2+: dorsalis-pedis (R), dorsalis-pedis (L) Respiratory: no respiratory distress, no rales or rhonchi Gastrointestinal: normoactive bowel sounds, soft, non-tender abdomen Skin: warm, no rashes or abrasions Musculoskeletal: no muscle tenderness, no joint effusions Neurologic: AAOx3, CN II-XII Intact, No asterixes Psychiatric: not anxious, not encephalopathic, other (confused) Lab Data & Imaging Review 06/07/16 03:54 06/07/16 03:54 WBC 8.15 10^3/uL (3.80-9.50) 06/07/16 03:54 RBC 3.81 10^6/uL (4.40-6.38) L 06/07/16 03:54 Hgb 10.9 g/dL (13.7-17.5) L 06/07/16 03:54 Hct 35.4 % (40.0-51.0) L 06/07/16 03:54 MCV 92.9 fL (81.5-99.8) 06/07/16 03:54 MCH 28.6 pg (27.9-34.1) 06/07/16 03:54 MCHC 30.8 g/dL (32.4-36.7) L 06/07/16 03:54 RDW 15.0 % (11.5-15.2) 06/07/16 03:54 Plt Count 171 10^3/uL (150-400) 06/07/16 03:54 MPV 10.5 fL (8.7-11.7) 06/07/16 03:54 Neut % (Auto) 78.6 % (39.3-74.2) H 06/07/16 03:54 Lymph % (Auto) 11.2 % (15.0-45.0) L 06/07/16 03:54 [place] % (Auto) 6.0 % (4.5-13.0) 06/07/16 03:54 Eos % (Auto) 3.1 % (0.6-7.6) 06/07/16 03:54 Baso % (Auto) 0.7 % (0.3-1.7) 06/07/16 03:54 Nucleat RBC Rel Count 0.0 % (0.0-0.2) 06/07/16 03:54 Absolute Neuts (auto) 6.41 10^3/uL (1.70-6.50) 06/07/16 03:54 Absolute Lymphs (auto) 0.91 10^3/uL (1.00-3.00) L 06/07/16 03:54 Absolute Monos (auto) 0.49 10^3/uL (0.30-0.80) 06/07/16 03:54 Absolute Eos (auto) 0.25 10^3/uL (0.03-0.40) 06/07/16 03:54 Absolute Basos (auto) 0.06 10^3/uL (0.02-0.10) 06/07/16 03:54 Absolute Nucleated RBC 0.00 10^3/uL (0-0.01) 06/07/16 03:54 Immature Gran % 0.4 % (0.0-1.1) 06/07/16 03:54 Immature Gran # 0.03 10^3/uL (0.00-0.10) 06/07/16 03:54 PT 13.1 SEC (12.0-15.0) 06/05/16 12:40 INR 1.00 (0.83-1.16) 06/05/16 12:40 APTT 25.4 SEC (23.0-38.0) 06/05/16 12:40 Sodium 142 mEq/L (134-144) 06/07/16 03:54 Potassium 5.7 mEq/L (3.5-5.2) H 06/07/16 03:54 Chloride 101 mEq/L (97-110) 06/07/16 03:54 Carbon Dioxide 26 mEq/l (22-31) 06/07/16 03:54 Anion Gap 15 mEq/L (8-16) 06/07/16 03:54 BUN 64 mg/dL (7-23) H 06/07/16 03:54 Creatinine 6.4 mg/dL (0.7-1.3) H 06/07/16 03:54 Estimated GFR 9 06/07/16 03:54 Glucose 87 mg/dL (70-100) 06/07/16 03:54 POC Glucose 92 mg/dL (70-100) 06/07/16 07:58 Calcium 8.9 mg/dL (8.5-10.4) 06/07/16 03:54 Magnesium 2.1 mg/dL (1.6-2.3) 06/06/16 04:01 Total Bilirubin 0.5 mg/dL (0.1-1.4) 06/07/16 03:54 Conjugated Bilirubin 0.4 mg/dL (0.0-0.5) 06/05/16 12:40 Unconjugated Bilirubin 0.1 mg/dL (0.0-1.1) 06/05/16 12:40 AST 21 IU/L (17-59) 06/07/16 03:54 ALT 30 IU/L (21-72) 06/07/16 03:54 Alkaline Phosphatase 65 IU/L (38-126) 06/07/16 03:54 Creatine Kinase 31 IU/L (0-224) 06/05/16 12:40 CK-MB (CK-2) Fraction 1.33 ng/mL (0-3.19) 06/05/16 12:40 Troponin I 0.030 ng/mL (0-0.034) 06/05/16 23:03 NT-Pro-B Natriuret Pep 1480 pg/mL (0-450) H 06/05/16 12:40 Total Protein 7.0 g/dL (6.3-8.2) 06/07/16 03:54 Albumin 4.0 g/dL (3.5-5.0) 06/07/16 03:54 Lipase 468.0 IU/L (23-300) H 06/05/16 12:40 Assessment & Plan Assessment: Assessment/Plan: ESRD: HD TTS, last dialyzed , missed HD yesterday. - Will do HD today, then resume TTS schedule this week. Hyperkalemia: modulate on HD. Pt also on daily kionex. Hypervolemia: will modulate on HD. Anemia: Hgb 10.9, at goal, no need for epo, will monitor. Thank you for the interesting consult. Nephrology will continue to follow, please call if you have any additional questions or concerns.
--- NOTE | 2016-06-07 11:56 | HOSPPROG ---
Hospitalist Progress Note Assessment/Plan: This is a 75-year-old male new to my care today with history of end-stage renal disease on hemodialysis presenting with: # ABDOMINAL PAIN left lower quadrant (Resolved) with evidence for air in the pancreatic duct on CT scan - I discussed this finding with Dr. Pineda from GI of the [facility] who recommends MRCP that can be potentially done as an outpatient. The patient's LFTs are currently within normal limits and he has no abdominal pain, so will defer workup at this time. Please setup outpt gi followup upon discharge. # Chest pain (Resolved ) -await nuclear imaging read -Recent fall, patient stopped using his walker 2 weeks ago but previous history of gait instability and falls - patient appears very weak and unsafe to discharge back to his current living situation. He has been seen by Physical therapy who are recommending senior care facility placement which is currently being investigated. -END-STAGE RENAL DISEASE, RECEIVED DIALYSIS TODAY ON HIS USUAL SCHEDULE - HD planned for today - HYPERKALEMIA - HD -COPD AND CHRONIC RESPIRATORY FAILURE disposition: Patient is high risk and will require further hospitalization. Will continue inpatient care Subjective: no chest pain. no abd pain. no acute complaints. very weak Objective: Vital Signs Temp Pulse Resp BP Pulse Ox 36.7 C 75 17 170/86 H 97 06/07/16 11:27 06/07/16 11:27 06/07/16 11:27 06/07/16 11:27 06/07/16 11:27 Laboratory Results 06/07/16 03:54 06/07/16 03:54 06/06/16 06/07/16 06/08/16 05:59 05:59 05:59 Intake Total 1650 Output Total 760 Balance 890 PT 13.1 SEC (12.0-15.0) 06/05/16 12:40 INR 1.00 (0.83-1.16) 06/05/16 12:40 - Physical Exam Constitutional: no apparent distress, appears nourished, not in pain Cardiovascular: regular rate and rhythym, no murmur, rub, or gallop Respiratory: no respiratory distress, no rales or rhonchi, clear to auscultation Gastrointestinal: normoactive bowel sounds, soft, non-tender abdomen, no palpable masses, No odom's sign, No guarding, No rebound Neurologic: AAOx3, sensation intact bilaterally ICD10 Worksheet Patient Problems: Problems Problem Status Onset Hyperglycemia Acute Respiratory failure Acute End stage renal disease Acute Pneumonia Acute Fluid overload Acute Hyperkalemia Acute Renal failure Acute Syncope Acute Anemia Acute Chest pain Acute Chest pain Acute Hyperkalemia Acute
[2016-06-07] MEDS: SEVELAMER HCL 800 MG TAB PO SCH (17:14)
[2016-06-07] MEDS: QUEtiapine FUMARATE 25 MG TAB PO SCH (17:14)
[2016-06-07] MEDS: INSULIN GLARGINE 100 UNITS/ML SYRINGE SC SCH (19:58)
[2016-06-07] MEDS: ATORVASTATIN CALCIUM 20 MG TAB PO SCH (19:58)
[2016-06-08] MEDS: HEPARIN 5,000 UNIT/0.5 ML SYR SC SCH (05:33)
[2016-06-08] MEDS: SEVELAMER HCL 800 MG TAB PO SCH (08:26)
[2016-06-08] MEDS: METOPROLOL SUCCINATE XR 25 MG TAB PO SCH (08:27)
[2016-06-08] MEDS: GABAPENTIN 100 MG CAP PO SCH (08:27)
[2016-06-08] MEDS: OMEGA-3 FATTY ACIDS 1,000 MG CAP PO SCH (08:27)
[2016-06-08] MEDS: PANTOPRAZOLE SODIUM 40 MG TAB PO SCH (08:27)
[2016-06-08] MEDS: SERTRALINE HCL 100 MG TAB PO SCH (08:27)
[2016-06-08] MEDS: CLOPIDOGREL BISULFATE 75 MG TAB PO SCH (08:27)
[2016-06-08] MEDS: SODIUM POLYSTYRENE SULF 454 GM POWDER PO SCH (08:28)
[2016-06-08] MEDS: IPRATROPIUM/ALBUTEROL 3 ML DEYVIAL IH SCH (08:35)
[2016-06-08 08:48] VITALS: BP 133/77; PULSE 75; RESP 19; TEMP 97.7; O2SAT 97
--- NOTE | 2016-06-08 10:40 | PDIAF ---
- Diagnosis Diagnosis: abdominal pain, resolved; noncardiac chest pain, resolved Code Status: Full Code - Medication Management Discharge Medications: Medications to Continue on Transfer QUEtiapine FUMARATE [Seroquel 25 mg (*)] 12.5 mg PO DAILY@17 11/14/15 [Last Taken 06/04/16] Clopidogrel Bisulfate [Plavix (*)] 75 mg PO DAILY 02/16/16 [Last Taken 06/05/16] Gabapentin [Neurontin 100 MG (*)] 100 mg PO BID 02/16/16 [Last Taken 06/05/16] Insulin Glargine [Lantus 100 UNITS/ML (*)] 24 units SC HS 02/16/16 [Last Taken 06/04/16] Lactulose 20 gm PO DAILY PRN 02/16/16 [Last Taken Unknown] Nitroglycerin [Nitrostat 0.4 mg (*)] 0.4 mg SL Q5M PRN 02/16/16 [Last Taken Unknown] [place]-3 Fatty Acids [Fish Oil 1000 mg (*)] 1,000 mg PO DAILY 02/16/16 [Last Taken 06/05/16] Pantoprazole Sodium [Protonix 40mg (*)] 40 mg PO DAILY 02/16/16 [Last Taken ] Polyethylene Glycol 3350 [Miralax 17 gm (*)] 17 gm PO DAILY PRN 02/16/16 [Last Taken Unknown] Atorvastatin Calcium [Lipitor 20 mg (*)] 20 mg PO HS 06/05/16 [Last Taken ] Dextrose Oral Gel [Glucose Gel (*)] 15 gm PO ONCE PRN 06/05/16 [Last Taken Unknown] Glucagon,Human Recombinant [Glucagon Emergency Kit] 1 mg IJ DAILY PRN 06/05/16 [ Last Taken Unknown] Herbals/Supplements -Info Only 1 ea PO DAILY 06/05/16 [Last Taken Unknown] Insulin Lispro [humALOG LISPRO 100 units/ml (*)] 0 - 16 unit SC TIDMEAL [Last Taken 06/05/16 5 UNITS] Ipratropium/Albuterol [Duoneb (*)] 3 ml IH QID@08,12,16,20 06/05/16 [Last Taken 06/05/16 08:00] Metoprolol Succinate Xr [Toprol Xl 25 mg (*)] 25 mg PO DAILY 06/05/16 [Last Taken 06/05/16] Ondansetron Odt [Zofran Odt 4 mg (*)] 4 mg PO Q6HRS PRN 06/05/16 [Last Taken Unknown] Sertraline HCl [Zoloft 100mg (*)] 100 mg PO DAILY 06/05/16 [Last Taken 06/05/16] Sevelamer Carbonate [Renvela] 800 mg PO TID@,,06/05/16 [Last Taken 08:00] Sodium Polystyrene Sulf [Kionex SPS Powder (*)] 20 ml PO DAILY 06/05/16 [Last Taken 06/05/16] Acetaminophen [Tylenol 325mg (*)] 650 mg PO Q4HRS PRN #0 tab 06/08/16 [Last Taken Unknown] Discharge Medications: Refer to the Discharge Home Medication list for PRN reason. - Orders Services needed: Registered Nurse, Certified Film Waxer, Master Litigation Partner Diet Recommendation: potassium restricted Diet Texture: Regular Texture Diet - Follow Up Care Current Providers and Referrals: Patient,NotPresent [Unknown] - As per Instructions
--- NOTE | 2016-06-08 11:05 | SOAPPROG ---
SOAP Progress Note Assessment/Plan: Assessment/Plan: ESRD: HD TTS. Last HD done yesterday. - Next HD done tomorrow, can be at outpatient dialysis unit if discharged. Hyperkalemia: modulate on HD Hypervolemia; modulate on HD. Subjective: No acute events overnight. Pt had HD yesterday, tolerated well. He has no pain , planning on going today. Objective: Vital Signs Temp Pulse Resp BP Pulse Ox 36.5 C 75 19 133/77 H 97 06/08/16 08:00 06/08/16 08:00 06/08/16 08:00 06/08/16 08:00 06/08/16 08:00 Laboratory Results 06/07/16 03:54 06/07/16 03:54 06/07/16 06/08/16 06/09/16 05:59 05:59 05:59 Intake Total 1650 1040 Output Total 760 200 Balance 890 840 PT 13.1 SEC (12.0-15.0) 06/05/16 12:40 INR 1.00 (0.83-1.16) 06/05/16 12:40 General: alert and oriented, no acute distress Eyes; EOMI, pERRL OP: Clear CV: RRR Resp: nonlabored respirations on NC Abd: Soft, NT Ext: +1 edema BLE Neuro; CN II-XII grossly intact, no asterixis Psych: cooperative Access: LUE AVF with thrill and bruit appreciated ICD10 Worksheet Patient Problems: Problems Problem Status Onset Chest pain Acute Hyperkalemia Acute Anemia Acute Chest pain Acute End stage renal disease Acute Fluid overload Acute Hyperglycemia Acute Hyperkalemia Acute Pneumonia Acute Renal failure Acute Respiratory failure Acute Syncope Acute
[2016-06-08] MEDS ORDERED: IPRATROPIUM/ALBUTEROL 3 ML DEYVIAL IH SCH (12:00)
--- NOTE | 2016-06-08 13:01 | PDDCSUM ---
Discharge Summary Discharge Summary: DISCHARGE DIAGNOSES: 1- ABDOMINAL PAIN, UNCERTAIN ETIOLOGY, RESOLVED 2- CHEST PAIN WITHOUT EVIDENCE OF CARDIAC ETIOLOGY OR HEART FAILURE, RESOLVED 3- END-STAGE RENAL DISEASE, CHRONIC HEMODIALYSIS 4- HYPERKALEMIA CONSULTANTS: DR. REZA OF NEPHROLOGY PROCEDURES: - HEMODIALYSIS -CT SCAN OF ABDOMEN -LEXISCAN STRESS TEST WITH NUCLEAR MYOCARDIAL PERFUSION IMAGING HOSPITAL COURSE SUMMARY: This patient is a gentleman with chronic end-stage renal disease on hemodialysis who was sent here from his dialysis unit with abdominal pain and chest pain. His symptoms had resolved by the time he arrived here at the hospital. There were no fevers, no concerning laboratory abnormalities. There is no heart failure or arrhythmia. He was eating well and moving his bowels well with no nausea. Essentially there were no specific symptoms or examination findings to direct us toward a specific etiology of his symptoms. He did undergo nuclear stress testing after negative cardiac enzymes and this did not show any evidence of ischemia. There is no arrhythmia here. A CT scan of the abdomen was done which showed some atherosclerosis and a small bit of air in the pancreatic duct without other pancreatic abnormalities, but there were no specific findings to indicate the cause of his lower abdominal pain. Patient's hospital course essentially was uneventful. At this time he is eating well up ambulating in the hallway but with some gait instability. It is felt that he is stable for discharge from hospital but not safe enough on his feet go home so will be discharged to a [facility] facility for further rehabilitation. MEDICATION CHANGES: None FOLLOW-UP PLAN: With his primary care physician within 2-4 weeks Greater than 35 minutes bedside and care coordination time today
== END 2016-06-08 13:25 | DRG 313 ==
LOC: EDUNIT# → INTOOBSV 14:12 → F2W 16:28 → OBSVTOIN 06-06 16:09
PROVIDERS: ADMIT Internal Medicine; ATTEND Internal Medicine
PROC: 5A1D00Z (ICD-10-PCS; principal; 2016-06-07)
DX: R07.9 Chest pain, unspecified (principal); N18.6 End stage renal disease; J96.10 Chronic respiratory failure, unspecified whether with hypoxia or hypercapnia; I12.0 Hypertensive chronic kidney disease with stage 5 chronic kidney disease or end stage renal disease; R10.9 Unspecified abdominal pain; E87.5 Hyperkalemia; J44.9 Chronic obstructive pulmonary disease, unspecified; E11.9 Type 2 diabetes mellitus without complications; K21.9 Gastro-esophageal reflux disease without esophagitis; Z79.4 Long term (current) use of insulin; Z99.2 Dependence on renal dialysis; Z86.73 Personal history of transient ischemic attack (TIA), and cerebral infarction without residual deficits
CPT/HCPCS: 96365; 97116-GP; 97161-GP; 97165-GO; 97530-GP; A9500; G0378; J0610; J1815; J2785

== ENCOUNTER 2016-07-25 19:56 | Inpatient (IN) | payer OTHER ==
[2016-07-25] MEDS ORDERED: NS 1,000 ML IV ONE ×2 (20:02→21:31)
--- NOTE | 2016-07-25 20:09 | CPEKG ---
Heart Rate: 102 RR Interval: 588 P-R Interval: 172 QRSD Interval: 118 QT Interval: 400 QTC Interval: 522 P [place]: 45 QRS [place]arragh: -60 T Wave D[place]: -21 EKG Severity - ABNORMAL ECG - EKG Impression: SINUS TACHYCARDIA EKG Impression: MULTIPLE VENTRICULAR PREMATURE COMPLEXES EKG Impression: PROBABLE LEFT ATRIAL ABNORMALITY EKG Impression: LAD, CONSIDER LEFT ANTERIOR FASCICULAR BLOCK Electronically Signed By: Yo Morris 25-Jul-2016 21:07:51
--- NOTE | 2016-07-25 20:10 | EDPHY ---
H & P Stated Complaint: unresponsive Time Seen by Provider: 07/25/16 20:01 HPI/ROS: CHIEF COMPLAINT: Unresponsive HISTORY OF PRESENT ILLNESS: Patient is a 75-year-old diabetic man with a history of renal failure on hemodialysis who is brought to the emergency department by EMS for being unresponsive. senior care staff reported that he cried "help me help me my abdomen". They then went to take his vital signs and he became unresponsive. He is now mumbling and groaning. He is moving all extremities. He is DNR. He also has a history of CHF. He was given albuterol EN route by EMS. REVIEW OF SYSTEMS: Unable to obtain secondary to condition EXAM: GENERAL: In severe distress, stable vitals HEAD: Atraumatic, normocephalic. EYES: Pupils equal round and reactive to light, extraocular movements intact, sclera anicteric, conjunctiva are normal. ENT: TMs normal, nares patent, oropharynx clear without exudates. Moist mucous membranes. NECK: Normal range of motion, supple without lymphadenopathy or JVD. LUNGS: Breath sounds clear to auscultation bilaterally and equal. No wheezes rales or rhonchi. HEART: Regular rate and rhythm without murmurs, rubs or gallops. ABDOMEN: Mildly distended, no pulsation, normoactive bowel sounds. No guarding , no rebound. No masses appreciated. BACK: No step-offs or deformities EXTREMITIES: Spontaneous movement in all extremities NEUROLOGICAL: Not cooperative with exam, laying and moaning, moves all extremities. PSYCH: Unable to assess SKIN: Warm, dry, normal turgor, no visible rashes or lesions. Source: Patient, EMS, senior care records Exam Limitations: No limitations - Personal History Current Tetanus/Diphtheria Vaccine: Unsure Current Tetanus Diphtheria and Acellular Pertussis (TDAP): Unsure - Medical/Surgical History Hx Asthma: No Hx Chronic Respiratory Disease: Yes Hx Diabetes: Yes Hx Cardiac Disease: Yes Hx Renal Disease: Yes Hx Cirrhosis: No Hx Alcoholism: No Hx HIV/AIDS: No Hx Splenectomy or Spleen Trauma: No Other PMH: dementia, renal failure, DM2, HTN, COPD, GERD, chronic resp failure, orthostatic hypotension, hx falls, diastolic HF, MRSA infection of AV fistula 2015 - Family History Significant Family History: No pertinent family hx - Social History Smoking Status: Unknown if ever smoked Alcohol Use: Sober Drug Use: None Constitutional: Initial Vital Signs Blood Pressure 108/61 07/25/16 20:00 O2 Delivery Mode Nasal Cannula O2 (L/minute) 4 Allergies/Adverse Reactions: lisinopril Allergy (Verified 11/14/15 06:13) Home Medications: Medication Instructions Recorded QUEtiapine FUMARATE [Seroquel 25 12.5 mg PO DAILY@17 11/14/15 mg (*)] Clopidogrel Bisulfate [Plavix (*)] 75 mg PO DAILY 02/16/16 Gabapentin [Neurontin 100 MG (*)] 100 mg PO BID 02/16/16 Insulin Glargine [Lantus 100 24 units SC HS 02/16/16 UNITS/ML (*)] Lactulose 20 gm PO DAILY PRN 02/16/16 Nitroglycerin [Nitrostat 0.4 mg 0.4 mg SL Q5M PRN 02/16/16 (*)] [place]-3 Fatty Acids [Fish Oil 1000 1,000 mg PO DAILY 02/16/16 mg (*)] Pantoprazole Sodium [Protonix 40mg 40 mg PO DAILY 02/16/16 (*)] Polyethylene Glycol 3350 [Miralax 17 gm PO DAILY PRN 02/16/16 17 gm (*)] Dextrose Oral Gel [Glucose Gel (*)] 15 gm PO ONCE PRN 06/05/16 Glucagon,Human Recombinant 1 mg IJ DAILY PRN 06/05/16 [Glucagon Emergency Kit] Herbals/Supplements -Info Only 1 ea PO DAILY 06/05/16 Insulin Lispro [humALOG LISPRO 100 0 - 16 unit SC TIDMEAL 06/05/16 units/ml (*)] Ipratropium/Albuterol [Duoneb (*)] 3 ml IH QID@,,16,20 06/05/16 Metoprolol Succinate Xr [Toprol Xl 25 mg PO TUTHSA 06/05/16 25 mg (*)] Ondansetron Odt [Zofran Odt 4 mg 4 mg PO Q6HRS PRN 06/05/16 (*)] Sertraline HCl [Zoloft 100mg (*)] 100 mg PO DAILY 06/05/16 Sevelamer Carbonate [Renvela] 800 mg PO TID@,,17 06/05/16 Acetaminophen [Tylenol 325mg (*)] 650 mg PO Q4HRS PRN #0 tab 06/08/16 Atorvastatin Calcium [Lipitor 10 10 mg PO HS 07/25/16 mg (*)] Cholecalciferol Vit D3 [Vitamin D3 1,000 units PO DAILY 07/25/16 (*)] Metoprolol Succinate 50 mg PO SUMOWEFR 07/25/16 Venlafaxine Xr [Effexor Xr 37.5MG 37.5 mg PO DAILY 07/25/16 (*)] Sodium Polystyrene Sulfonate 20 ml PO DAILY 07/26/16 [Kayexalate] Medical Decision Making - Diagnostics EKG Interpretation: An EKG obtained and was read and documented in trace view. Please see trace view for full reading and report. Sinus rhythm with frequent PVCs, no acute ST elevation or ischemic changes, similar to previous Imaging: Discussed imaging studies w/ on call Radiologist ED Course/Re-evaluation: Patient remained unresponsive and became hypotensive. We only had a 20 gauge access only. We he took him to the trauma [facility] and inserted an triple lumen into his right IJ. We have ordered an emergent CT scans rule out aortic aneurysm or rupture. He will need dialysis The patient is becoming more responsive. He is answering questions. He denies any pain. Currently Family is at bedside. They do not know much of his history. Patient thinks he may have had a seizure in the past but his family says it was manifest as his leg shaking for 24 hrs. According to his medical records he was admitted last month for abdominal and chest pain without specific diagnosis. His lipase was slightly elevated then and is significantly elevated now 9:45 a.m. patient's family states that he is acting baseline. He denies being in any pain currently but states that he is tired. I will admit for this episode of altered mental status. Central line is placed. We have held the fliud at 1.5 L. BP currently 120/70. Have not needed pressers. Will admit fo AMS and pancreatitis 10pm Discussed the case with Dr Felix who will admit to SDU. Request we notify Nephrology. Dr Cobb saw him during his last admission. 10:11 the case with Nephrology Dr Alfred. They request insulin, glucose and Kayexalate and recheck potassium in 2 hours. They will consult. Differential Diagnosis: Partial list of the Differential diagnosis considered include but were not limited to; pancreatitis, seizure, ICH, Med overdose, AAA, and although unlikely based on the history and physical exam, I also considered perforation, CVA. - Data Points Laboratory Results: Laboratory Results 07/25/16 20:10 07/25/16 20:10 Medications Given: Discontinued Medications Aspirin Buffered (Aspirin Ec) 325 mg PO ONCE ONE Stop: 07/26/16 06:23 Last Admin: 07/26/16 08:09 Dose: 325 mg Dextrose (Dextrose 50% Syringe) 25 gm IVP EDNOW ONE Stop: 07/25/16 22:09 Last Admin: 07/25/16 22:31 Dose: 25 gm Sodium Chloride (Ns) 1,000 mls @ 0 mls/hr IV ONCE ONE PRN Reason: Wide Open Stop: 07/25/16 20:03 Last Admin: 07/25/16 20:22 Dose: 1,000 mls Sodium Chloride (Ns) 1,000 mls @ 0 mls/hr IV ONCE ONE PRN Reason: Wide Open Stop: 07/25/16 21:32 Last Admin: 07/25/16 21:31 Dose: 1,000 mls Insulin Human Regular 10 unit/Miscellaneous Medication 1 ea / Dextrose 500.1 mls @ 50 mls/hr IV EDNOW ONE Stop: 07/26/16 08:08 Last Admin: 07/25/16 22:52 Dose: 500.1 mls Insulin Human Regular (Humulin R) 10 unit IVP EDNOW ONE Stop: 07/25/16 22:09 Last Admin: 07/25/16 22:31 Dose: 10 units Sodium Polystyrene Sulfonate (Kayexalate) 30 gm PO EDNOW ONE Stop: 07/25/16 22:09 Last Admin: 07/25/16 22:45 Dose: 30 gm Departure - Departure Disposition: [facility] In[facility] Acute Clinical Impression: Renal failure Pancreatitis Qualifiers: Chronicity: acute Pancreatitis type: unspecified pancreatitis type Acute pancreatitis complication: unspecified Qualified Code(s): K85.90 - Acute pancreatitis without necrosis or infection, unspecified Altered mental status, unspecified Qualifiers: Altered mental status type: transient alteration of awareness Qualified Code(s) : R40.4 - Transient alteration of awareness Condition: Fair
[2016-07-25 20:23] LABS: % IMMATURE GRANULYOCYTES 0.6 % (0.0-1.1); ABSOLUTE IMMATURE GRANULOCYTES 0.05 10^3/uL (0.00-0.10); ADD DIFF? NO; ADD MORPH? NO; ADD SCAN? NO; ATYPICAL LYMPHOCYTE FLAG 0 (0-99); FRAGMENT RBC FLAG 0 (0-99); HEMATOCRIT 37.8 % (40.0-51.0); HEMOGLOBIN 11.5 g/dL (13.7-17.5); LEFT SHIFT FLG 0 (0-99); LIPEMIA HEMOLYSIS FLAG 80 (0-99); MEAN CELL HEMOGLOBIN 27.2 pg (27.9-34.1); MEAN CELL HEMOGLOBIN CONCENTR. 30.4 g/dL (32.4-36.7); MEAN CELL VOLUME 89.4 fL (81.5-99.8); PLATELET CLUMPS FLAG 20 (0-99); PLATELET COUNT 185 10^3/uL (150-400); RED BLOOD CELL COUNT 4.23 10^6/uL (4.40-6.38); RED CELL DISTRIBUTION WIDTH 16.3 % (11.5-15.2)
[2016-07-25 20:34] LABS: ANION GAP 13 mEq/L (8-16); CALCIUM 8.8 mg/dL (8.5-10.4); CARBON DIOXIDE 28 mEq/l (22-31); CHLORIDE 95 mEq/L (97-110); CREATININE 4.8 mg/dL (0.7-1.3); GLOMERULAR FILTRATION RATE 12; GLUCOSE 227 mg/dL (70-100); POTASSIUM 6.2 mEq/L (3.5-5.2); SODIUM 136 mEq/L (134-144)
[2016-07-25] MEDS ORDERED: IOPAMIDOL (ISOVUE 370) 100 ML BTL IV ONE (20:57)
[2016-07-25] MEDS ORDERED: SODIUM POLY SULF 15 GM/60 ML BOTTLE PO ONE (22:08)
[2016-07-25] MEDS ORDERED: D50W 25 GM/50 ML SYR IVP ONE (22:08)
[2016-07-25] MEDS ORDERED: INSULIN REGULAR HUMAN 100 UNIT/ML IVP ONE (22:08)
[2016-07-25] MEDS ORDERED: INSULIN REGULAR HUMAN 10 UNIT, COSIGN. REQUIRED 1 EA in D10W 500 ML IV ONE (22:08)
[2016-07-25 22:29] LABS: TROPONIN I 0.037 ng/mL (0-0.034)
[2016-07-25] MEDS ORDERED: ONDANSETRON 4 MG/2 ML VIAL IVP PRN (23:13)
[2016-07-25] MEDS ORDERED: ONDANSETRON DISINTEGRATING 4 MG TAB PO PRN (23:13)
[2016-07-25] MEDS ORDERED: ACETAMINOPHEN 325 MG TAB PO PRN (23:13)
[2016-07-25] MEDS ORDERED: D50W 25 GM/50 ML SYR IVP PRN (23:46)
[2016-07-26 00:26] LABS: ANION GAP 11 mEq/L (8-16); CALCIUM 8.2 mg/dL (8.5-10.4); CARBON DIOXIDE 27 mEq/l (22-31); CHLORIDE 100 mEq/L (97-110); CREATININE 4.8 mg/dL (0.7-1.3); GLOMERULAR FILTRATION RATE 12; GLUCOSE 136 mg/dL (70-100); POTASSIUM 5.4 mEq/L (3.5-5.2); SODIUM 138 mEq/L (134-144)
--- NOTE | 2016-07-26 05:17 | PDGENHP ---
History and Physical - Chief Complaint altered mental status - History of Present Illness Patient was seen and examined on 07/25/2016. Patient is a 75-year-old male with history of ESRD on HD TTS, COPD with chronic respiratory failure, DM 2 on insulin, dCHF, hypertension, CAD and old CVAs presents to the emergency room from his SNF after an episode of altered mental status. Per report, patient had been complaining of abdominal pain earlier in the day, when the SNF nurses went to his room to evaluate him, he became unresponsive. There was no reported associated jerking movements, incontinence or tongue biting. He was then transported to the [facility] ED for further evaluation. Patient was admitted to [facility] about 2 weeks ago for abdominal and chest pain of unclear etiology. Abdominal pain was worked up with a CT abd/pelvis, which revealed nonspecific air in the pancreatic duct. This was planned to be worked up as an outpatient with GI follow-up. Chest pain work up included a NM stress test that revealed old inferolateral wall infarct. On arrival to the ED patient was initially afebrile and hemodynamically stable. He appeared encephalopathic, with mumbling but was moving all extremities equally. Shortly after arrival in the ED, patient became hypotensive so triple- lumen catheter was placed for adequate IV access. He was given IV fluid resuscitation with normalization of blood pressure, never required pressor support. ED labs revealed hyperkalemia, hyperglycemia, indeterminately elevated troponin, elevated lipase and CBC at baseline. CT of the head did not reveal any acute infarct, hemorrhage or edema, showed evidence of old CVAs. CT angio of the chest abdomen and pelvis were then obtained to rule out aortic dissection. These did not show significant vascular abnormalities, but did show a lesion vs cyst at the pancreatic head. His hyperkalemia was treated and he was admitted to the hospitalist service for further management. On my assessment, patient appeared lethargic, but was answering all questions appropriately and nonfocal on exam. He denied any pain or symptoms other than fatigue on my assessment, but did state he had abdominal pain earlier in the day. He denied any nausea, vomiting or diarrhea. He also denied any chest pain, palpitations or shortness of breath. History Information - Allergies/Home Medication List Allergies/Adverse Reactions: lisinopril Allergy (Verified 11/14/15 06:13) Home Medications: QUEtiapine FUMARATE [Seroquel 25 mg (*)] 12.5 mg PO DAILY@17 11/14/15 [Last Taken 07/25/16] Clopidogrel Bisulfate [Plavix (*)] 75 mg PO DAILY 02/16/16 [Last Taken 07/25/16] Gabapentin [Neurontin 100 MG (*)] 100 mg PO BID 02/16/16 [Last Taken 07/25/16] Insulin Glargine [Lantus 100 UNITS/ML (*)] 24 units SC HS 02/16/16 [Last Taken 07/24/16] Lactulose 20 gm PO DAILY PRN 02/16/16 [Last Taken Unknown] Nitroglycerin [Nitrostat 0.4 mg (*)] 0.4 mg SL Q5M PRN 02/16/16 [Last Taken Unknown] [place]-3 Fatty Acids [Fish Oil 1000 mg (*)] 1,000 mg PO DAILY 02/16/16 [Last Taken 07/25/16] Pantoprazole Sodium [Protonix 40mg (*)] 40 mg PO DAILY 02/16/16 [Last Taken ] Polyethylene Glycol 3350 [Miralax 17 gm (*)] 17 gm PO DAILY PRN 02/16/16 [Last Taken Unknown] Dextrose Oral Gel [Glucose Gel (*)] 15 gm PO ONCE PRN 06/05/16 [Last Taken Unknown] Glucagon,Human Recombinant [Glucagon Emergency Kit] 1 mg IJ DAILY PRN 06/05/16 [ Last Taken Unknown] Herbals/Supplements -Info Only 1 ea PO DAILY 06/05/16 [Last Taken Unknown] Insulin Lispro [humALOG LISPRO 100 units/ml (*)] 0 - 16 unit SC TIDMEAL [Last Taken 07/25/16] Ipratropium/Albuterol [Duoneb (*)] 3 ml IH QID@08,12,16,20 06/05/16 [Last Taken 07/25/16] Metoprolol Succinate Xr [Toprol Xl 25 mg (*)] 25 mg PO TUTHSA 06/05/16 [Last Taken 07/25/16] Ondansetron Odt [Zofran Odt 4 mg (*)] 4 mg PO Q6HRS PRN 06/05/16 [Last Taken Unknown] Sertraline HCl [Zoloft 100mg (*)] 100 mg PO DAILY 06/05/16 [Last Taken 07/25/16] Sevelamer Carbonate [Renvela] 800 mg PO TID@08,12,06/05/16 [Last Taken 17:00] Sodium Polystyrene Sulf [Kionex SPS Powder (*)] 20 ml PO DAILY 06/05/16 [Last Taken 07/25/16] Atorvastatin Calcium [Lipitor 10 mg (*)] 10 mg PO HS 07/25/16 [Last Taken ] Cholecalciferol Vit D3 [Vitamin D3 (*)] 1,000 units PO DAILY 07/25/16 [Last Taken 07/25/16] Metoprolol Succinate 50 mg PO SUMOWEFR 07/25/16 [Last Taken 07/24/16] Venlafaxine Xr [Effexor Xr 37.5MG (*)] 37.5 mg PO DAILY 07/25/16 [Last Taken ] I have personally reviewed and updated: family history, medical history, social history, surgical history - Past Medical History CHF (diastolic), COPD, CVA, diabetes type 2, ESRD (TTS), GERD, hypertension Additional medical history: Chronic respiratory failure on home O2. reported MRSA infection at the AV fistula in October of 2015 - Surgical History Additional surgical history: av fistula placement left upper extremity - Family History Positive for: non-pertinent - Social History Smoking Status: Unknown if ever smoked Alcohol Use: Sober Drug Use: None Additional social history: dependent for his ADLs, resides at [facility] Review of Systems ROS: 10pt was reviewed & negative except for what was stated in HPI & below Physical Exam Temp Pulse Resp BP Pulse Ox 36.9 C 91 17 167/83 H 91 L 07/26/16 04:00 07/26/16 04:00 07/26/16 04:00 07/26/16 04:00 07/26/16 04:00 O2 (L/minute) 5 Constitutional: no apparent distress, appears nourished, not in pain Eyes: PERRL, anicteric sclera, EOMI Ears, Nose, Mouth, Throat: moist mucous membranes, hearing normal, ears appear normal, no oral mucosal ulcers Cardiovascular: regular rate and rhythym, no murmur, rub, or gallop, pulses symmetric bilaterally, No JVD, No edema Peripheral Pulses: 2+: dorsalis-pedis (R), dorsalis-pedis (L) Respiratory: no respiratory distress, no rales or rhonchi, clear to auscultation Gastrointestinal: normoactive bowel sounds, soft, non-tender abdomen, no palpable masses, No guarding, No rebound, No distension Genitourinary: no bladder fullness, no bladder tenderness Skin: warm, normal color, no rashes or abrasions, no fluctuance, no induration, No mottled Musculoskeletal: full muscle strength, no muscle tenderness, normal joint ROM, no joint effusions Neurologic: AAOx3, sensation intact bilaterally, weakness (generalized), CN II- XII Intact, No numbness, No facial droop Psychiatric: other (lethargic, but responsive to verbal stimuli) Lab Data & Imaging Review 07/26/16 05:15 07/26/16 05:15 WBC 8.50 10^3/uL (3.80-9.50) 07/25/16 20:10 RBC 4.23 10^6/uL (4.40-6.38) L 07/25/16 20:10 Hgb 11.5 g/dL (13.7-17.5) L 07/25/16 20:10 POC Hgb 13.6 gm/dL (14.5-17.3) L 07/25/16 20:04 Hct 37.8 % (40.0-51.0) L 07/25/16 20:10 POC Hct 40 % (42.8-50.6) L 07/25/16 20:04 MCV 89.4 fL (81.5-99.8) 07/25/16 20:10 MCH 27.2 pg (27.9-34.1) L 07/25/16 20:10 MCHC 30.4 g/dL (32.4-36.7) L 07/25/16 20:10 RDW 16.3 % (11.5-15.2) H 07/25/16 20:10 Plt Count 185 10^3/uL (150-400) 07/25/16 20:10 MPV 10.0 fL (8.7-11.7) 07/25/16 20:10 Neut % (Auto) 82.2 % (39.3-74.2) H 07/25/16 20:10 Lymph % (Auto) 9.2 % (15.0-45.0) L 07/25/16 20:10 Sebastian % (Auto) 5.2 % (4.5-13.0) 07/25/16 20:10 Eos % (Auto) 2.2 % (0.6-7.6) 07/25/16 20:10 Baso % (Auto) 0.6 % (0.3-1.7) 07/25/16 20:10 Nucleat RBC Rel Count 0.0 % (0.0-0.2) 07/25/16 20:10 Absolute Neuts (auto) 6.99 10^3/uL (1.70-6.50) H 07/25/16 20:10 Absolute Lymphs (auto) 0.78 10^3/uL (1.00-3.00) L 07/25/16 20:10 Absolute Monos (auto) 0.44 10^3/uL (0.30-0.80) 07/25/16 20:10 Absolute Eos (auto) 0.19 10^3/uL (0.03-0.40) 07/25/16 20:10 Absolute Basos (auto) 0.05 10^3/uL (0.02-0.10) 07/25/16 20:10 Absolute Nucleated RBC 0.00 10^3/uL (0-0.01) 07/25/16 20:10 Immature Gran % 0.6 % (0.0-1.1) 07/25/16 20:10 Immature Gran # 0.05 10^3/uL (0.00-0.10) 07/25/16 20:10 POC Sodium 136 mEq/L (134-144) 07/25/16 20:04 Sodium 138 mEq/L (134-144) 07/25/16 23:59 POC Potassium 5.9 mEq/L (3.3-5.0) H 07/25/16 20:04 Potassium 5.4 mEq/L (3.5-5.2) H 07/25/16 23:59 POC Chloride 95 mEq/L (96-108) L 07/25/16 20:04 Chloride 100 mEq/L (97-110) 07/25/16 23:59 Carbon Dioxide 27 mEq/l (22-31) 07/25/16 23:59 Anion Gap 11 mEq/L (8-16) 07/25/16 23:59 POC BUN 34 mg/dL (7-23) H 07/25/16 20:04 BUN 37 mg/dL (7-23) H 07/25/16 23:59 Creatinine 4.8 mg/dL (0.7-1.3) H 07/25/16 23:59 POC Creatinine 4.8 mg/dL (0.8-1.5) H 07/25/16 20:04 Estimated GFR 12 07/25/16 23:59 Glucose 136 mg/dL (70-100) H 07/25/16 23:59 POC Glucose 226 mg/dL (70-100) H 07/25/16 20:04 Calcium 8.2 mg/dL (8.5-10.4) L 07/25/16 23:59 Troponin I 0.037 ng/mL (0-0.034) H 07/25/16 20:10 Lipase 961.0 IU/L (23-300) H 07/25/16 20:10 Visualized and Interpreted imaging results: Yes Interpretation: CTH: no acute hemorrhage, infarct, edema; 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 CT angio chest/abd/pelvis: atheroscelrosis of aorta and iliac arteries; no dissection; 1.6cm lesion located at the head of the pancreas, without evidence of pancreatitis; Visualized and Interpreted EKG results: Yes EKG additional interpertation: multiple PVCs; repeat: NSR without significant st /t wave changes Assessment & Plan Assessment: Patient is a 75-year-old male with history of ESRD on HD TTS, COPD, DM 2, dCHF, hypertension, and old CVAs presents to the ED from his SNF after an episode of altered mental status. Mental status improved to his baseline over ED course, concerning for seizure activity with a post-ictal state. ED work up revealed no acute pathology in CT head, newly identified pancreatic head lesion vs cyst with elevated lipase on labs. Plan: # acute encephalopathy Etiology is likely multifactorial, although the acute episode of unresponsiveness described by the SNF is concerning for possible seizure activity. Mental slowly improved over his ED course and he appeared to be at his baseline on my assessment. CTH reveals old bilateral cerebellar infarcts, but no acute pathology. Labs reveal significant electrolyte abnormalities, including hyperkalemia, hyperglycemia, elevated lipase. Presently, there does not appear to be an obvious infectious etiology, although UA is pending. - neuro consult - consider MRI brain - correct electrolyte abnormalities - monitor neuro checks - seizure precautions # elevated lipase, ?pancreatic lesion CT from 06/05 reveals air within the pancreatic duct without obvious obstruction or dilation. CT from today now shows a 1.6 cm lesion vs cyst at the head of the pancreas, without evidence of acute pancreatitis. Will consider inpatient GI consult for further evaluation, monitor for pain, follow LFTs and lipase. # hyperkalemia, ESRD K is elevated, but without significant EKG changes. Insulin/D50/Kayexalate given in ED with improvement in K. Nephrology has been informed of his admission , will assess need for HD in AM. # COPD with chronic respiratory failure No respiratory complaints, O2 sats are at baseline. Cont home meds, home O2 via NC and provide nebs prn. # DM2 Hyperglycemic on arrival. Will confirm home insulin regimen and continue, with sliding scale coverage. # hypertension Patient had a brief episode of hypotension while in the ED, for which CVC was placed and IVF bolus was given. Since receiving IVF hydration, BP has been stable, without need for pressor support. Reason for the hypotension is not clear, CTs have ruled out dissection, he does not have an obvious source of infection (no evidence of SIRS/sepsis). Will continue to monitor and resume home anti-hypertensive regimen. # elevated troponin Repeat troponin this AM has resulted at 0.5. Patient has not had any episodes of chest pain, EKG does not show any evidence of ischemia. Suspect elevated troponin is related to his ESRD. Will repeat EKG now, given aspirin and cont to trend Trops. Patient had a NM stress in his most recent admission that showed a moderate sized infarct, with some evidence of joe-infarct reversible ischemia. Will consult cardiology. # dispo: admit to inpatient service for likely > 2 [place] stay # gen: renal diet DVT ppx: HSQ DNR -> per patient's MOLST form present from [facility].
[2016-07-26 05:28] LABS: % IMMATURE GRANULYOCYTES 0.4 % (0.0-1.1); ABSOLUTE IMMATURE GRANULOCYTES 0.03 10^3/uL (0.00-0.10); ADD DIFF? NO; ADD MORPH? NO; ADD SCAN? NO; ATYPICAL LYMPHOCYTE FLAG 0 (0-99); FRAGMENT RBC FLAG 0 (0-99); HEMATOCRIT 31.1 % (40.0-51.0); HEMOGLOBIN 9.3 g/dL (13.7-17.5); LEFT SHIFT FLG 0 (0-99); LIPEMIA HEMOLYSIS FLAG 70 (0-99); MEAN CELL HEMOGLOBIN 27.5 pg (27.9-34.1); MEAN CELL HEMOGLOBIN CONCENTR. 29.9 g/dL (32.4-36.7); MEAN PLATELET VOLUME 10.2 fL (8.7-11.7); PLATELET CLUMPS FLAG 0 (0-99); PLATELET COUNT 147 10^3/uL (150-400); RED BLOOD CELL COUNT 3.38 10^6/uL (4.40-6.38); RED CELL DISTRIBUTION WIDTH 16.4 % (11.5-15.2)
[2016-07-26 05:34] LABS: INR 1.08 (0.83-1.16); PROTIME(PATIENT) 13.9 SEC (12.0-15.0)
[2016-07-26] MEDS: HEPARIN 5,000 UNIT/0.5 ML SYR SC SCH ×3 (05:40→21:21)
[2016-07-26 05:41] LABS: ALANINE AMINOTRANSFERASE 37 IU/L (21-72); ALBUMIN 3.6 g/dL (3.5-5.0); ALKALINE PHOSPHATASE 58 IU/L (38-126); ANION GAP 11 mEq/L (8-16); ASPARTATE AMINOTRANSFERASE 38 IU/L (17-59); BILIRUBIN,TOTAL 0.4 mg/dL (0.1-1.4); CALCIUM 8.5 mg/dL (8.5-10.4); CARBON DIOXIDE 27 mEq/l (22-31); CHLORIDE 102 mEq/L (97-110); CREATININE 5.1 mg/dL (0.7-1.3); GLOMERULAR FILTRATION RATE 11; GLUCOSE 95 mg/dL (70-100); POTASSIUM 5.2 mEq/L (3.5-5.2); SODIUM 140 mEq/L (134-144); TOTAL PROTEIN 6.3 g/dL (6.3-8.2)
[2016-07-26 05:51] LABS: TROPONIN I 0.518 ng/mL (0-0.034)
[2016-07-26 06:01] LABS: CREATINE KINASE-MB FRACTION 4.16 ng/mL (0-3.19)
[2016-07-26] MEDS ORDERED: ASPIRIN EC 325 MG TAB PO ONE (06:22)
--- NOTE | 2016-07-26 06:27 | CPEKG ---
Heart Rate: 88 RR Interval: 682 P-R Interval: 180 QRSD Interval: 110 QT Interval: 428 QTC Interval: 518 P [place]: 70 QRS [place]: 1 T Wave [place]: 23 EKG Severity - ABNORMAL ECG - EKG Impression: SINUS RHYTHM EKG Impression: PROBABLE LEFT ATRIAL ABNORMALITY EKG Impression: NONSPECIFIC INTRAVENTRICULAR CONDUCTION DELAY Electronically Signed By: Megan Weldon 27-Jul-2016 06:58:36
[2016-07-26 06:32] LABS: CK-MB INTERPRETATION POSITIVE (NEGATIVE)
--- NOTE | 2016-07-26 07:20 | SOAPPROG ---
SOAP Progress Note Assessment/Plan: Assessment: 1)ESRD- [facility] -Will HD again today given volume status, high K, recent contrast- then back to TTS schedule 2)hyperkalemia -given kayexalate, insulin overnight- improved 5.2 -curious why K so high post HD- ?he tells me did not cut run short, will see if any difficulty with AVF today -renal diet when taking po 3)abd pain -CTA negative for AAA -lipase 900s, trops mild elevation- last one up to 0.5- will defer to hospitalist 4)Anemia of CKD- -Hb at goal, will verify Epo dose from unit in am 5)Altered mental status -better today -CT head negative 6)Acute worsening of hypoxia- suspect fluid overload asi given IV NS on admit -CTA unremarkable, does have underlying signif COPD and on 3L O2 chronically -Nuc stress in 05/29 here with LVEF 56%, hypokinesis inferolat wall -HD today to help with volume status 7)MBD of CKD -phos at goal, renal diet 8)pancreas lesion- needs further imaging, GI eval 9)lumbar compression fracture Reyna Avila MD [facility] [phone] 07/26/16 07:55 Subjective: 75 M with h/o DM2, HTN, ESRD ([facility] TTS), CHF admitted from nursing facility after abd pain, syncopal event. CTA in ER unremarkable (did show pancreatic lesion). Head CT negative. Given IVF. He tells me he had HD yesterday and did not cut time short. K was 6.2, given insulin and kayexalate, repeat 5.2 this am. He denies any difficulty with AVF recently. Still a bit confused as not able to tell me much more details. Tells me he feels sob and some abd pain. RN reports mental status better this am compared to last night. No fevers, diarrhea. Lipase was in 900s. Now on 5L O2 by mask (baseline COPD with 3L O2 by NC). Denies chest pain. Had nuc stress in May with LVEF 56%, hypokinesis inferolat wall. Last trop 0.5. Objective: Vital Signs Temp Pulse Resp BP Pulse Ox 36.9 C 91 17 167/83 H 91 L 07/26/16 04:00 07/26/16 04:00 07/26/16 04:00 07/26/16 04:00 07/26/16 04:00 Laboratory Results 07/26/16 05:15 07/26/16 05:15 07/25/16 07/26/16 07/27/16 05:59 05:59 05:59 Intake Total 2019 Balance 2020 PT 13.9 SEC (12.0-15.0) 07/26/16 05:15 INR 1.08 (0.83-1.16) 07/26/16 05:15 Physical Exam - Physical Exam General Appearance: no apparent distress, other (on face mask 5L O2, looks tachypneic) EENT: other (mmm) Neck: other (RIJ triple lumen c/d/i) Respiratory: rales (bilateral bases) Cardiac/Chest: regular rate, rhythm Abdomen: normal bowel sounds, non-tender (on palpation), soft Extremities: other (LUE AVF +thrill.bruit) Neuro/Psych: alert, other (follows commands, interactive (better per RN from last night)) ICD10 Worksheet Patient Problems: Problems Problem Status Onset Altered mental status, unspecified Acute Pancreatitis Acute Renal failure Acute Anemia Acute Chest pain Acute Chest pain Acute End stage renal disease Acute Fluid overload Acute Hyperglycemia Acute Hyperkalemia Acute Hyperkalemia Acute Pneumonia Acute Respiratory failure Acute Syncope Acute
[2016-07-26] MEDS: INSULIN LISPRO 100 UNIT/ML SC SCH ×3 (08:35→17:19)
[2016-07-26 08:41] LABS: BASE EXCESS -0.4 mEq/L (-2.5-2.5); BICARBONATE 26 mEq/L (22-26); MEASURED OXYGEN SATURATION 95 % (92-95); PCO2 56 mmHg (34-38); PO2 81 mmHg (65-75); TCO2 28 mEq/L (23-27)
[2016-07-26 08:44] LABS: O2 CONCENTRATION LITERS 4.5 LITERS
--- NOTE | 2016-07-26 09:21 | HOSPPROG ---
Hospitalist Progress Note Assessment/Plan: 75-year-old in long-term care at [facility] with a history of end-stage renal disease, cerebrovascular disease and probable heart disease comes in with altered mental status. He also complains of intermittent abdominal pain which has been going on for quite some time. This morning he was involved in the stroke alert when the nurse noted he potentially had some left-sided droop. But my evaluation time he had completely resolved and appeared to be close to baseline both by his assessment and neurologic exam. He is not oriented to time and can only tell me he is in a [facility]. # altered mental status in a very ill man. CT did show evidence of previous CVAs however neurologic exam today is normal except for diffuse weakness and decreased orientation. * Neurologic evaluation pending * Will check carotid ultrasound given possible left-sided facial droop this morning which has resolved * Check ABG * Continue supportive care, will have case management look into his support system to see how aggressive to be with this man. # elevated troponin. Patient currently has no chest pain. Previous evaluation did show a echo with evidence of a large MA. He also had a recently nuclear stress test that showed large MA and joe-infarct ischemia. EKG this morning was negative for ischemia. * Cycle troponins * Repeat echocardiogram for wall motion changes from last echo * Will unlikely get another nuclear stress test since he just had 1 but will discuss with Cardiology. # end-stage renal disease, renal is aware of patient. No urgent dialysis needed at this time. # diabetes. Blood sugar normal this morning, will follow. # abdominal pain with unremarkable CT of the abdomen and chest except for questionable mass on head of the pancreas. Not sure how aggressive to be with this given his overall poor health, will discuss this later in hospital course once he is more alert or ever chance to talk with his family. I will check a CA 19 # History of MRSA in fistula 10/2015, no current evidence of infection of fevers at this time # COPD with chronic respiratory failure, usually on 4 LPM. Will check ABG and follow, currently he has no new respiratory complaints. # hypotension in the emergency department. He had a central line placed and fluid bolus which resolved his hypotension. Unclear how much this is related to his altered mental status on admission. # DVT proph: SQ hep. Subjective: Patient new to me and chart reviewed. Currently he says he does not feel more confused than at baseline although he is oriented to name and place only. He denies any chest pain or shortness of breath, he denies any acute abdominal pain at this time. Objective: Vital Signs Temp Pulse Resp BP Pulse Ox 37.1 C 86 16 180/86 H 94 07/26/16 08:00 07/26/16 08:00 07/26/16 08:00 07/26/16 08:00 07/26/16 08:00 Laboratory Results 07/26/16 05:15 07/26/16 05:15 07/25/16 07/26/16 07/27/16 05:59 05:59 05:59 Intake Total 2019 Balance 2019 PT 13.9 SEC (12.0-15.0) 07/26/16 05:15 INR 1.08 (0.83-1.16) 07/26/16 05:15 - Physical Exam Constitutional: chronically ill appearing, obese, unkempt Eyes: PERRL, anicteric sclera, EOMI Ears, Nose, Mouth, Throat: moist mucous membranes Cardiovascular: regular rate and rhythym, systolic murmur, No edema Respiratory: no respiratory distress, clear to auscultation, reduced air movement Gastrointestinal: normoactive bowel sounds, soft, non-tender abdomen, no palpable masses Genitourinary: no bladder fullness Skin: warm Musculoskeletal: generalized weakness (No focal weakness), No asymmetric calves , No muscular tenderness Neurologic: weakness, No AAOx3, No numbness, No facial droop Psychiatric: not anxious, poor memory Lymph, Heme, Immunologic: no cervical LAD ICD10 Worksheet Patient Problems: Problems Problem Status Onset Hyperglycemia Acute Respiratory failure Acute End stage renal disease Acute Pneumonia Acute Fluid overload Acute Hyperkalemia Acute Renal failure Acute Syncope Acute Anemia Acute Chest pain Acute Chest pain Acute Hyperkalemia Acute Pancreatitis Acute Altered mental status, unspecified Acute
[2016-07-26] MEDS ORDERED: NON-FORMULARY NEW DRUG (Lactulose [Lactulose] 20 GM) PO PRN (09:29)
[2016-07-26] MEDS ORDERED: GLUCOSE-INSTA 15 GM TUBE PO PRN (09:29)
[2016-07-26] MEDS ORDERED: POLYETHYLENE GLYCOL 3350 17 GM PKT PO PRN (09:29)
[2016-07-26] MEDS ORDERED: NITROGLYCERIN 0.4 MG BTL SL PRN (09:29)
[2016-07-26] MEDS ORDERED: LACTULOSE 20 GM/30 ML UDCUP PO PRN (09:54)
--- NOTE | 2016-07-26 10:11 | GCON ---
[f rep st] CONSULTATION NEUROLOGIC CONSULTATION REFERRING PHYSICIAN: Dr. Bryant HISTORY: The patient is a 75-year-old gentleman who I am asked to see in neurologic consultation re garding altered mental status. The patient says he came to the hospital because of abdominal pain. I have reviewed the medical records. He had been at the hospital 2 weeks ago for abdominal pain an d chest pain of unknown cause. He was transferred from his nursing facility yesterday because of al tered mental status. He had apparently become poorly responsive but no specific seizures were descr ibed and initially no complaints of any focal findings. He had a stroke alert this morning because of some apparent facial droop but that had resolved spontaneously, and he is back to the previous [facility]. Yesterday, he also had significant hypotension. He had a triple-lumen catheter with fluid resuscitation and did not need pressors. He has elevated troponin, among other metabolic anomalies. His head CT did not show any evidence of an acute stroke. He does have atrophy with cerebellar an d right temporal parietal old infarcts. The patient is currently denying any focal numbness or weakness. He says he does not feel particula rly confused. He is not complaining of abdominal pain currently. No clear-cut exacerbating or jordyn viating factors for symptoms which have gone from mild to severe at various times but now probably c lose to his normal neurologic state. PAST MEDICAL HISTORY: Does include heart failure, end-stage renal disease on dialysis, COPD, prior strokes, type 2 diabetes, hypertension on chronic oxygen with MRSA. ALLERGIES: Lisinopril. MEDICATIONS: Per the medication list include Seroquel, Plavix, Neurontin, insulin, Protonix, DuoNeb , Zofran, Zoloft, Lipitor, Effexor. SOCIAL HISTORY: No current alcohol use. He resides at [facility]. He is a prior smoker. PHYSICAL EXAMINATION: VITAL SIGNS: Currently, vital signs show blood pressure 180/86, pulse of 86, respirations 16, temperature 37.1. GENERAL: He is an overweight man lying in the bed in no acute distress. HEENT: Eyes are clear. NECK: Supple with no bruits or masses. CARDIAC: Regular rate a nd rhythm. No murmur. NEUROLOGIC: He is lethargic but will open his eyes to voice and is oriented to being in [place] in the hospital. He was not sure of the month or the year. He does know his g eneral situation for being here but says it is related to abdominal pain and does not specifically d escribe an altered mental state. He can perform simple calculations, and he can spell. He has pupi ls that are 3 mm and reactive. Extraocular movements intact. Normal facial sensation and strength. Palate elevates symmetrically. Tongue protrudes midline. Motor exam: Normal muscle bulk and tone. Some generalized strength but no asymmetry of strength. All the strength is in the 4/5 range. Sensation is preserved for temperature and light touch. Refl exes are hypoactive. No pathologic reflexes. A total of 55 minutes of unit time with [id number] evaluation and review of details with providers . IMPRESSION: The patient has altered mental status with multiple factors contributing and may have e xperienced a transient ischemic attack this morning with possible facial droop, which is now resolve d. He has old strokes putting him at risk for exacerbation of old deficits but also he could certai nly have other events occur. We will check his carotid ultrasound and monitor his progress. We yasmin l see how he does with dialysis and stabilization of metabolic status as well, and we will follow up . /[id number]/MODL
--- NOTE | 2016-07-26 10:36 | GCON ---
[f rep st] CONSULTATION CARDIOLOGY CONSULTATION. DATE OF CONSULTATION: 07/26/2016 INDICATION FOR CONSULTATION: Mildly elevated troponin. HISTORY OF PRESENT ILLNESS: The patient is a 75-year-old gentleman with an extensive past medical history including end-stage renal disease on hemodialysis , COPD with chronic respiratory failure, diabetes, hypertension, multiple CVAs and history of coronary artery disease based on recent abnormal nuclear stress test who [facility] to [facility] after an episode of altered mental status yesterday. The patient is unable to provide me the details of the events surrounding yesterday due to his lack of memory of any events. However, he denies complaints of chest pain, chest pressure, shortness of breath or dyspnea. He denies complaints of PND, orthopnea, or lower extremity edema. Upon his arrival in the emergency department, he was confused and appeared encephalopathic. He was hypotensive in the ER and a central line access was obtained and he was given IV fluids with normalization of blood pressure and required no further support. He was found to be hyperkalemic, hyperglycemic which had been normalized. His serial troponins had been done demonstrating initial troponin of 0.037, increasing to 0.518. Currently at the time of my exam he is able to respond appropriately to questions. He is somewhat somnolent but arousable. He is getting dialysis at the time of my examination. On further questioning, again he denies any cardiac complaints. In reviewing his recent history, he did undergo a recent pharmacologic nuclear stress test in May 2016 demonstrating a moderate-sized inferolateral wall infarct with mild joe-infarct ischemia. He was managed medically. He denies any medical noncompliance. PAST MEDICAL HISTORY: 1. End-stage renal disease on dialysis. 2. Hypertension. 3. Diabetes. 4. History of CVA. 5. COPD. 6. Diastolic congestive heart failure. 7. History of methicillin-resistant Staph aureus infection at the site of AV fistula in October 2015. SOCIAL HISTORY: He currently resides at [facility]. CARDIAC MEDICATIONS ON ADMISSION: Plavix 75 mg daily, metoprolol succinate 25 mg daily, atorvastatin 10 mg daily. PHYSICAL EXAM: VITAL SIGNS: Current blood pressure is 180/86. He is currently getting dialysis. Oxygen saturation of 94%. He is currently on 5 L nasal cannula. Respiratory rate of 16. GENERAL: He is awake, but somnolent but arousable. Responds appropriate to questions. There is no evidence of JVP or carotid bruits. CARDIAC: S1, S2. Regular rate and rhythm. ABDOMEN: Soft , nontender, nondistended. There is no evidence of cyanosis, clubbing or edema. LABORATORY DATA: White blood cell count of 8.47, hemoglobin of 9.3, hematocrit of 31.1. Platelet count of 147. INR 1.08. Sodium 140, potassium 5.2, chloride 102, bicarb 27, BUN 38, creatinine 5.1, AST 38, ALT 37. CK-MB 4.16. Troponin initially trending from 0.037 to 0.518, and most recently 0.674. TSH normal at 0.851. ECG demonstrates sinus rhythm with left axis deviation with slightly prolonged QT interval of 521 milliseconds which is corrected with Bazett formula. No evidence of ischemia or infarction. Chest x-ray shows no evidence of pneumothorax. There is some evidence of increased interstitial markings in both lungs consistent with emphysema. CT of the head: No acute hemorrhage or mass effect. No definite acute infarct. Old bilateral cerebellar and right temporoparietal infarcts. Moderate microvascular ischemic gliosis. CT of the chest: Atherosclerotic plaque of the aorta without aneurysm or dissection. Evidence of coronary atherosclerosis. No acute pneumonia, significant adenopathy, pleural effusion or pneumothorax. IMPRESSION: 1. Mildly elevated troponin in the setting of a 75-year-old gentleman with end- stage renal disease. 2. Evidence of old inferolateral infarct with joe-infarct ischemia. 3. Hypertension. 4. Diastolic congestive heart failure. 5. History of cerebrovascular accident. 6. End-stage renal disease, on hemodialysis. SUMMARY: The patient is a 75-year-old gentleman with new admission secondary to episode of altered mental status who appeared encephalopathic upon his admission. He was found to be hyperkalemic and hyperglycemic and hypotensive. He was supported with IV hydration and electrolytes were normalized. He is currently getting dialysis. He has had no cardiac complaints throughout his hospitalization. ECG demonstrates no evidence of ischemia. Recent nuclear stress test in May 2016 with inferolateral infarct with minimal joe-infarct ischemia. I do not see any indication for a left heart catheterization at this time in the absence of symptoms and a mildly elevated troponin with normal ECG in the setting of end-stage renal disease. Would opt for medical management at this time. Agree with plan for echocardiogram to assess for new wall motion abnormalities. RECOMMENDATIONS: 1. Limited echocardiogram to assess for wall motion abnormalities compared to previous study. 2. Continue current cardiac medications as outlined above. 3. Will continue to follow with patient's care. 30 min spent coordinating patient care /[id number]/MODL MTDD
[2016-07-26] MEDS: NEOMY SULF/BACITRAC ZN/POLY 30 GM OINTTUBE TP SCH (11:55)
[2016-07-26] MEDS ORDERED: NON-FORMULARY NEW DRUG (Sevelamer Carbonate [Renvela] 800 MG) PO SCH (12:00)
[2016-07-26] MEDS: METOPROLOL SUCCINATE XR 50 MG TAB PO SCH (12:53)
[2016-07-26] MEDS: Sevelamer Carbonate [Renvela] 800 MG PO SCH ×2 (14:12→17:10)
[2016-07-26] MEDS ORDERED: LIDOCAINE 1% *Not for Epidural 20 ML MDV ONE (14:17)
--- NOTE | 2016-07-26 15:23 | CPEKG ---
Heart Rate: 84 RR Interval: 714 P-R Interval: 168 QRSD Interval: 106 QT Interval: 440 QTC Interval: 521 P [place]: 64 QRS [place]: -16 T Wave [place]: 35 EKG Severity - ABNORMAL ECG - EKG Impression: SINUS RHYTHM EKG Impression: VENTRICULAR PREMATURE COMPLEX EKG Impression: PROLONGED QT INTERVAL Electronically Signed By: Britni Gillespie 26-Jul-2016 15:22:39
[2016-07-26] MEDS: IPRATROPIUM/ALBUTEROL 3 ML DEYVIAL IH SCH ×3 (15:32→20:58)
[2016-07-26] MEDS ORDERED: QUEtiapine FUMARATE 25 MG TAB PO SCH (17:00)
[2016-07-26] MEDS ORDERED: INSULIN GLARGINE 100 UNITS/ML SYRINGE SC SCH (21:00)
[2016-07-26] MEDS ORDERED: ATORVASTATIN CALCIUM 10 MG TAB PO SCH (21:00)
[2016-07-26] MEDS: GABAPENTIN 100 MG CAP PO SCH (21:21)
[2016-07-27] MEDS ORDERED: hydrALAZINE 20 MG/ML VIAL IVP PRN (00:20)
[2016-07-27 05:36] LABS: % IMMATURE GRANULYOCYTES 0.5 % (0.0-1.1); ABSOLUTE IMMATURE GRANULOCYTES 0.04 10^3/uL (0.00-0.10); ADD DIFF? NO; ADD MORPH? NO; ADD SCAN? NO; ATYPICAL LYMPHOCYTE FLAG 0 (0-99); FRAGMENT RBC FLAG 0 (0-99); HEMATOCRIT 33.5 % (40.0-51.0); HEMOGLOBIN 10.2 g/dL (13.7-17.5); LEFT SHIFT FLG 0 (0-99); LIPEMIA HEMOLYSIS FLAG 80 (0-99); MEAN CELL HEMOGLOBIN 27.5 pg (27.9-34.1); MEAN CELL HEMOGLOBIN CONCENTR. 30.4 g/dL (32.4-36.7); MEAN CELL VOLUME 90.3 fL (81.5-99.8); MEAN PLATELET VOLUME 10.3 fL (8.7-11.7); PLATELET CLUMPS FLAG 0 (0-99); PLATELET COUNT 144 10^3/uL (150-400); RED BLOOD CELL COUNT 3.71 10^6/uL (4.40-6.38); RED CELL DISTRIBUTION WIDTH 16.3 % (11.5-15.2)
[2016-07-27 05:50] LABS: ANION GAP 11 mEq/L (8-16); CALCIUM 9.1 mg/dL (8.5-10.4); CARBON DIOXIDE 28 mEq/l (22-31); CHLORIDE 102 mEq/L (97-110); CREATININE 4.7 mg/dL (0.7-1.3); GLOMERULAR FILTRATION RATE 12; GLUCOSE 93 mg/dL (70-100); POTASSIUM 4.8 mEq/L (3.5-5.2); SODIUM 141 mEq/L (134-144)
[2016-07-27 06:00] LABS: TROPONIN I 0.443 ng/mL (0-0.034)
[2016-07-27] MEDS: HEPARIN 5,000 UNIT/0.5 ML SYR SC SCH ×2 (07:21→15:39)
[2016-07-27] MEDS: Sevelamer Carbonate [Renvela] 800 MG PO SCH (07:44)
[2016-07-27] MEDS: INSULIN LISPRO 100 UNIT/ML SC SCH ×2 (08:03→13:12)
[2016-07-27] MEDS: IPRATROPIUM/ALBUTEROL 3 ML DEYVIAL IH SCH ×2 (08:05→11:28)
--- NOTE | 2016-07-27 08:54 | CPEKG ---
Heart Rate: 90 RR Interval: 667 P-R Interval: 156 QRSD Interval: 102 QT Interval: 412 QTC Interval: 504 P [place]: 67 QRS [place]: -7 T Wave [place]: 17 EKG Severity - ABNORMAL ECG - EKG Impression: SINUS RHYTHM EKG Impression: MULTIPLE VENTRICULAR PREMATURE COMPLEXES EKG Impression: PROLONGED QT INTERVAL Electronically Signed By: Megan Weldon 27-Jul-2016 17:10:05
[2016-07-27] MEDS ORDERED: SERTRALINE HCL 100 MG TAB PO SCH (09:00)
[2016-07-27] MEDS ORDERED: OMEGA-3 FATTY ACIDS 1,000 MG CAP PO SCH (09:00)
[2016-07-27] MEDS ORDERED: PANTOPRAZOLE SODIUM 40 MG TAB PO SCH (09:00)
[2016-07-27] MEDS ORDERED: CLOPIDOGREL BISULFATE 75 MG TAB PO SCH (09:00)
[2016-07-27] MEDS ORDERED: CHOLECALCIFEROL VIT D3 1,000 UNITS TAB PO SCH (09:00)
[2016-07-27] MEDS ORDERED: VENLAFAXINE XR 37.5 MG CAP PO SCH (09:00)
[2016-07-27] MEDS ORDERED: SODIUM POLY SULF 15 GM/60 ML BOTTLE PO SCH (09:00)
[2016-07-27] MEDS ORDERED: SODIUM POLYSTYRENE SULF 454 GM POWDER PO SCH (09:00)
[2016-07-27] MEDS: GABAPENTIN 100 MG CAP PO SCH (09:15)
[2016-07-27] MEDS: NEOMY SULF/BACITRAC ZN/POLY 30 GM OINTTUBE TP SCH (09:19)
--- NOTE | 2016-07-27 10:46 | HOSPPROG ---
Hospitalist Progress Note Assessment/Plan: 75-year-old in long-term care at [facility] with a history of end-stage renal disease, cerebrovascular disease and probable heart disease comes in with altered mental status. Yesterday he had a stroke alert and presented with possible facial droop. He was confused however on my exam he had no focal neurologic findings. Today he appears to be back at baseline he is oriented x3 although does have some cognitive issues. I discussed the case with Dr. James who feels he may have Lewy body dementia which could account for his fluctuating mental status. I do not feel like there is anything further we should do here and I will discharge him back to [facility]. # altered mental status in a very ill man. CT did show evidence of previous CVAs however neurologic exam today is normal except for diffuse weakness and decreased orientation. * Carotid Doppler shows no obstruction * Patient back to baseline, will have him follow up with his neurologist as an outpatient # elevated troponin. Patient currently has no chest pain. Previous evaluation did show a echo with evidence of a large NM. He also had a recently nuclear stress test that showed large NM and joe-infarct ischemia. EKG this morning was negative for ischemia. * Troponins have been stable likely secondary to renal failure, he continues to have no chest pain and EKG is stable * Will await echo results if this is unchanged will do no further evaluation and treat him medically * Will discuss with Dr. Myers. # end-stage renal disease, renal is aware of patient. Routine dialysis after discharge # diabetes. Blood sugar normal this morning, will follow. # abdominal pain with unremarkable CT of the abdomen and chest except for questionable mass on head of the pancreas. Patient is in long-term care will have him follow up with his alf physician as an outpatient given his overall poor quality of life and likely inability to have surgery due to severe COPD. # History of MRSA in fistula 10/2015, no current evidence of infection of fevers at this time # COPD with chronic respiratory failure, usually on 4-6 LPM. Will check ABG and follow, currently he has no new respiratory complaints. # hypotension in the emergency department. He had a central line placed and fluid bolus which resolved his hypotension. Unclear how much this is related to his altered mental status on admission. # DVT proph: SQ hep. Subjective: Patient much improved today has no complaints no chest pain no shortness of breath. Much more alert today Objective: Vital Signs Temp Pulse Resp BP Pulse Ox 36.9 C 86 16 154/77 H 95 07/27/16 08:00 07/27/16 08:05 07/27/16 08:05 07/27/16 09:18 07/27/16 08:05 Laboratory Results 07/27/16 05:15 07/27/16 05:15 07/26/16 07/27/16 07/28/16 05:59 05:59 05:59 Intake Total 2019 400 Output Total 800 Balance 2019 -400 PT 13.9 SEC (12.0-15.0) 07/26/16 05:15 INR 1.08 (0.83-1.16) 07/26/16 05:15 - Physical Exam Constitutional: no apparent distress, chronically ill appearing, obese Eyes: anicteric sclera, EOMI Ears, Nose, Mouth, Throat: moist mucous membranes Cardiovascular: regular rate and rhythym Respiratory: no respiratory distress, reduced air movement, other (Supplemental oxygen), No inspiratory crackles Gastrointestinal: normoactive bowel sounds, soft, non-tender abdomen, no palpable masses Genitourinary: no bladder fullness Skin: normal color Musculoskeletal: generalized weakness Neurologic: AAOx3 Psychiatric: interacting appropriately, not anxious, not encephalopathic ICD10 Worksheet Patient Problems: Problems Problem Status Onset Hyperglycemia Acute Respiratory failure Acute End stage renal disease Acute Pneumonia Acute Fluid overload Acute Hyperkalemia Acute Renal failure Acute Syncope Acute Anemia Acute Chest pain Acute Chest pain Acute Hyperkalemia Acute Pancreatitis Acute Altered mental status, unspecified Acute
[2016-07-27] MEDS: METOPROLOL SUCCINATE XR 50 MG TAB PO SCH (11:25)
[2016-07-27 11:53] VITALS: RESP 18; TEMP 98.2
[2016-07-27] MEDS ORDERED: SEVELAMER HCL 800 MG TAB PO SCH (12:00)
--- NOTE | 2016-07-27 12:24 | ECHO ---
[id number] + + [address] : : [place] [address] : : [phone] + + Adult Echocardiographic Report + ------+ :Name: IRENA VENCES JStudy Date: 07/27/2016 07:50 AM : : Hospital Admission Number: [id number] Barbra n: 343: :: 1940 Gender: Male Height: 68 in : :Age: 75 yrs Race: WH Weight: 200 lb : :Reason For Study: Eval for wall motion abnormalities : : BSA: 2.0 meters 2 : + ------+ MMode/2D Measurements \T\ Calculations LVIDd: 4.9 cm EDV(Teich): 110.8 ml Ao root diam: 3.8 cm Normal Measurement Values: + + :LVIDd (3.5-5.7cm) IVSd (0.6-1.1cm) LVPWd (0.6-1.1cm) Aortic Root (2.0-3.7cm)Left Atrium (1.5-4.0cm): :LV Vol(d) (76-115ml) LV Vol(s) (29-48ml) Ejec Fraction (50-65%)PV Christofer (0.6- 1.2m/s) TV Christofer (0.4-1.0m/s) : :MV E Christofer (0.8-1.0m/s)MV A Christofer (0.3-1.0m/s)LVOT Christofer (0.7-1.2m/s) Asc Ao Christofer ( 0.9-1.8m/s) : + + Doppler Measurements \T\ Calculations MV E max christofer: 62.2 cm/sec Ao V2 max: 114.0 cm/sec MV A max christofer: 121.4 cm/sec Ao max P.2 mmHg MV E/A: 0.51 Left Ventricle The left ventricle is normal in size. There is normal left ventricular wall thickness. Ejection Fraction = 55-60%. There is Doppler evidence for diastolic dysfunction. LV inferoseptal wall appears hypokinetic otherwise normal segmental wall motion. Right Ventricle The right ventricle is normal size. Atria Borderline left atrial enlargement. Right atrial size is normal. Mitral Valve Calcified mitral apparatus. There is mild mitral regurgitation. Tricuspid Valve Normal tricuspid valve. There is trace to mild tricuspid regurgitation. Aortic Valve The aortic valve opens well. Moderate Aortic Valve Calcification. There is no aortic stenosis. There is no aortic insufficiency. Pulmonic Valve The pulmonic valve is not well visualized. There is no pulmonic valvular regurgitation. Great Vessels The aortic root is normal size. Pericardium/Pleural There is no pericardial effusion. Conclusion A complete two-dimensional transthoracic echocardiogram was performed (2D, M-mode, Doppler and color flow Doppler). (1) Left ventricular systolic ejection fraction was normal (55-60%) - grossly normal wall motion (2) No left ventricular hypertrophy (3) Diastolic dysfunction was present (4) Normal right ventricular size and function (5) Borderline left atrial dilation with normal right atrial dimenisons (6) Mild mitral regurgitation with calcification of the annulus (7) Trileaflet aortic valve with moderate sclerosis, no stenosis, physiologic insufficiency (8) Trace/mild tricuspid regurgitation (9) Poor visualization of the pulmonic valve (10) Ini comparison to prior echocardiogram (limited) from 02/27, possible slight increase in LVEF noted. Final Reading Physician: Luis Escalona signed on 07/27/2016 12:23 PM Ordering Physician: Carolina Carranza Performed By: Faith Crump RDCS
--- NOTE | 2016-07-27 12:42 | SOAPPROG ---
SOAP Progress Note Assessment/Plan: Assessment: Tavares is doing ok today. He states he is feeling good. He denies abd pain, chest pain, dyspnea, or light headedness. I agree with conservative management. He appears stable for DC. I will alert his outpatient unit. Plan: 07/27/16 12:40 Subjective: Doing ok Objective: Vital Signs Temp Pulse Resp BP Pulse Ox 36.8 C 87 18 150/83 H 93 07/27/16 11:51 07/27/16 11:51 07/27/16 11:51 07/27/16 11:51 07/27/16 11:51 Laboratory Results 07/27/16 05:15 07/27/16 05:15 07/26/16 07/27/16 07/28/16 05:59 05:59 05:59 Intake Total 2020 400 Output Total 800 Balance 2020 -400 PT 13.9 SEC (12.0-15.0) 07/26/16 05:15 INR 1.08 (0.83-1.16) 07/26/16 05:15 Physical Exam - Physical Exam General Appearance: no apparent distress Respiratory: lungs clear Cardiac/Chest: regular rate, rhythm Extremities: pedal edema, other (fistula with bruit; it is still wrapped from HD yesterday) Neuro/Psych: oriented x 3 ICD10 Worksheet Patient Problems: Problems Problem Status Onset Altered mental status, unspecified Acute Pancreatitis Acute Renal failure Acute Anemia Acute Chest pain Acute Chest pain Acute End stage renal disease Acute Fluid overload Acute Hyperglycemia Acute Hyperkalemia Acute Hyperkalemia Acute Pneumonia Acute Respiratory failure Acute Syncope Acute
--- NOTE | 2016-07-27 14:04 | PDCARPN ---
Cardiology Progress Note Chief Complaint: Patient reports he would like to go home. 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 Residing in halfway facility. Admitted for confusion on 2016. With improvement hydration, and dialysis. Patient with previous history of MPI study showing moderate infarct involving the inferior lateral wall mild joe-infarct ischemia near apex. (06/06/2016). He denies of any history of chest pain or shortness of breath. Troponin level drawn on admission at 0.037, peaking yesterday at 0.553, today 0.443. Electrocardiogram done on admission and repeated yesterday showing no signs of acute ST or T-wave abnormalities suggesting of ischemia. Occasional premature ventricular contraction. Echocardiogram done today showed LV EF of 55-60%, LV inferior septal wall appeared hypokinetic, otherwise normal segmental wall motion. Diastolic dysfunction, borderline LA dilation, with normal right atrial dimensions, mild MR, trace to mild TR. Per Dr. Jason, echo shows improvement in LV wall motion ejection fraction since previous limited echo. Patient currently denies of any chest pressure or pain. Continues cardiac monitoring showing sinus rhythm with occasional premature ventricular contraction, no malignant arrhythmias. Plan: 1. Elevated troponin: Patient asymptomatic of chest pain or symptoms suggesting of ischemia. Troponin on downward decline in setting of diaylsis. Echocardiogram showing improvement in LV wall motion, will continue with medical management. Patient continue on home dose of clopidogrel,, on beta- kamila metoprolol succinate, and on statin therapy of atorvastatin for optimal medical therapy. If any questions, patient can be seen by Cardiology in outpatient setting. 2. Diastolic heart failure: Continue on dialysis. Blood pressure management with amlodipine, metoprolol, hydralazine 3. End-stage renal disease: Being followed by Nephrology, dialysis. 4. Diabete: Medication management by hospitalist services. 5. COPD chronic respiratory failure: Continue on home oxygen 07/27/16 14:03 Subjective: Patient denies of any chest pressure or pain, denies of any palpitations, shortness of breath, orthopnea, PND Reviewed/Discussed With: hospitalist (Dr Bryant), other (Dr Jason) Objective: Vital Signs (8 Hrs) Temp Pulse Resp BP Pulse Ox 07/27/16 11:51 36.8 C 87 18 150/83 H 93 07/27/16 11:30 87 16 92 07/27/16 11:25 86 154/77 H 07/27/16 09:18 154/77 H 07/27/16 08:05 86 16 95 07/27/16 08:00 36.9 C 84 16 154/77 H 90 L Intake/Output (24 Hrs) 07/26/16 07/27/16 07/28/16 05:59 05:59 05:59 Intake Total 2019 400 Output Total 800 Balance 2019 -400 Intake: Oral (ml) 400 IV Infused (ml) 2019 Output: Urine (ml) 800 Incontinence 800 Other: Weight 90.718 kg 81.647 kg Intake Quantity Yes Sufficient Number of Voids Incontinence 1 1 Number of Stools Incontinence 1 Result Diagrams: 07/27/16 05:15 07/27/16 05:15 Cardiac Labs: Cardiac Lab Results (72 Hrs) 07/27/16 07/26/16 07/26/16 05:15 18:20 09:05 CK-MB (CK-2) Fraction Troponin I 0.443 H 0.553 H 0.674 H 07/26/16 05:15 CK-MB (CK-2) Fraction 4.16 H Troponin I 0.518 H - Physical Exam Constitutional: WDWN, no apparent distress Ears, Nose, Mouth, Throat: moist mucous membranes Cardiovascular: regular rate and rhythm, no rubs, systolic murmur (2/6 systolic murmur noted along left sternal border), pulses symmetric bilat, other ( Positive bruit in AV fistula left forearm.), No jugular vein distention Peripheral Pulses: 1+: dorsalis-pedis (R), dorsalis-pedis (L), 2+: carotid (R), carotid (L) Respiratory: other (Lungs diminished in bases, no rhonchi, rales, or wheezing noted.) Gastrointestinal: normoactive bowel sounds, no masses, No tenderness Skin: No no edema (+1 peripheral edema bilateral lower extremity) Neurologic: AAOx3 Psychiatric: cooperative, interactive, following commands ICD10 Worksheet Patient Problems: Problems Problem Status Onset Altered mental status, unspecified Acute Anemia Acute Chest pain Acute Chest pain Acute End stage renal disease Acute Fluid overload Acute Hyperglycemia Acute Hyperkalemia Acute Hyperkalemia Acute Pancreatitis Acute Pneumonia Acute Renal failure Acute Respiratory failure Acute Syncope Acute
--- NOTE | 2016-07-27 14:33 | PDIAF ---
- Diagnosis Diagnosis: altered mental status, resolved, elevated troponin, Code Status: Do Not Resuscitate - Medication Management Discharge Medications: Medications to Continue on Transfer QUEtiapine FUMARATE [Seroquel 25 mg (*)] 12.5 mg PO DAILY@17 11/14/15 [Last Taken 07/25/16] Clopidogrel Bisulfate [Plavix (*)] 75 mg PO DAILY 02/16/16 [Last Taken 07/25/16] Gabapentin [Neurontin 100 MG (*)] 100 mg PO BID 02/16/16 [Last Taken 07/25/16] Insulin Glargine [Lantus 100 UNITS/ML (*)] 24 units SC HS 02/16/16 [Last Taken 07/24/16] Lactulose 20 gm PO DAILY PRN 02/16/16 [Last Taken Unknown] Nitroglycerin [Nitrostat 0.4 mg (*)] 0.4 mg SL Q5M PRN 02/16/16 [Last Taken Unknown] Acme-3 Fatty Acids [Fish Oil 1000 mg (*)] 1,000 mg PO DAILY 02/16/16 [Last Taken 07/25/16] Pantoprazole Sodium [Protonix 40mg (*)] 40 mg PO DAILY 02/16/16 [Last Taken ] Polyethylene Glycol 3350 [Miralax 17 gm (*)] 17 gm PO DAILY PRN 02/16/16 [Last Taken Unknown] Dextrose Oral Gel [Glucose Gel (*)] 15 gm PO ONCE PRN 06/05/16 [Last Taken Unknown] Glucagon,Human Recombinant [Glucagon Emergency Kit] 1 mg IJ DAILY PRN 06/05/16 [ Last Taken Unknown] Herbals/Supplements -Info Only 1 ea PO DAILY 06/05/16 [Last Taken Unknown] Insulin Lispro [humALOG LISPRO 100 units/ml (*)] 0 - 16 unit SC TIDMEAL [Last Taken 07/25/16] Ipratropium/Albuterol [Duoneb (*)] 3 ml IH QID@08,12,16,20 06/05/16 [Last Taken 07/25/16] Metoprolol Succinate Xr [Toprol Xl 25 mg (*)] 25 mg PO TUTHSA 06/05/16 [Last Taken 07/25/16] Ondansetron Odt [Zofran Odt 4 mg (*)] 4 mg PO Q6HRS PRN 06/05/16 [Last Taken Unknown] Sertraline HCl [Zoloft 100mg (*)] 100 mg PO DAILY 06/05/16 [Last Taken 07/25/16] Sevelamer Carbonate [Renvela] 800 mg PO TID@08,12,06/05/16 [Last Taken 17:00] Acetaminophen [Tylenol 325mg (*)] 650 mg PO Q4HRS PRN #0 tab 06/08/16 [Last Taken Unknown] Atorvastatin Calcium [Lipitor 10 mg (*)] 10 mg PO HS 07/25/16 [Last Taken ] Cholecalciferol Vit D3 [Vitamin D3 (*)] 1,000 units PO DAILY 07/25/16 [Last Taken 07/25/16] Metoprolol Succinate 50 mg PO SUMOWEFR 07/25/16 [Last Taken 07/24/16] Venlafaxine Xr [Effexor Xr 37.5MG (*)] 37.5 mg PO DAILY 07/25/16 [Last Taken ] Sodium Polystyrene Sulfonate [Kayexalate 15GM/60 ML Oral Liquid] 20 ml PO DAILY 07/26/16 [Last Taken 07/25/16] Acetaminophen [Tylenol 325mg (*)] 650 mg PO Q4HRS PRN #0 tab 07/27/16 [Last Taken Unknown] Dextrose 50% Syringe 25 gm IVP PRN PRN #0 syr 07/27/16 [Last Taken Unknown] Neomy Sulf/Bacitrac Zn/Poly [Triple Antibiotic Oint tube (*)] 1 gwen TP DAILY #0 oint 07/27/16 [Last Taken Unknown] Discharge Medications: Refer to the Discharge Home Medication list for PRN reason. - Orders Services needed: Registered Nurse, Certified [employer], Master Respite Worker , Physical Therapy Diet Recommendation: potassium restricted Diet Texture: Regular Texture Diet, Thin Liquids - Follow Up Care Current Providers and Referrals: Patient,NotPresent [Unknown] - As per Instructions
--- NOTE | 2016-07-27 14:55 | GDS ---
[f rep st] DISCHARGE SUMMARY DIAGNOSES: 1. Altered mental status, resolved. 2. Elevated troponin, stable, without EKG changes. 3. End-stage renal disease, on dialysis. 4. Diabetes. 5. Chronic abdominal pain. 6. Possible mass on head of the pancreas. Needs followup in 6 months. 7. History of methicillin-resistant Staphylococcus aureus. 8. Chronic obstructive pulmonary disease with chronic respiratory failure. 9. Dementia. Rule out Lewy body dementia. PROCEDURES DONE: 1. Chest and thoracic and abdominopelvic CT angiogram. a. No evidence of pulmonary embolus. b. Atherosclerotic aorta and iliac arteries. c. Constipation, sigmoid diverticulosis without diverticulitis. d. Pancreatic head 1.6 cm hypodense lesion or possibly cystic lesion. Recommend followup imaging w ith MRI of the pancreas as an outpatient. e. Severe centrilobular emphysema. 2. Echocardiogram. Improved wall motion from previous echocardiogram. 3. Carotid Doppler study. No significant stenosis noted. CONSULTATIONS: Cardiology, Dr. Anatoliy Myers. Neurology, Dr. Kyle Turner. Nephrology. HOSPITAL COURSE: The patient is a 75-year-old man with end-stage renal disease and diabetes who com es in with altered mental status. On evaluation in the emergency department, he was more confused, also complaining of abdominal pain. He underwent the above procedures, including a head CT without contrast, with the above notable changes. He was admitted, and the morning of admission the nurses noted some increased confusion and possible facial droop. A stroke alert was called; however, his s ymptoms resolved spontaneously, and although he was mildly confused the morning of admission, the ne xt day he appeared to be back to baseline and was alert and oriented x3. He admits to having interm ittent episodes where he becomes confused and acts "drunk" once or twice a week. He felt this was s imilar to those episodes. I did discuss this with Neurology, who felt that it may be related to his dementia and possibly he has some Lewy body dementia with some intermittent altered mental status. Regardless, his symptoms have completely resolved, and he is back to baseline. Additionally, he had elevated troponin during his stay. This remained flat. His EKGs were stable. Echocardiogram actually showed improvement from his previous echo a few weeks ago. Cardiology saw him and recommended medical management without further evaluation at this time. Of note, he had a r ecent cardiac evaluation during his last admission. He also was noted to have a questionable lesion on the head of the pancreas. He is relatively asymptomatic, and, given his severe emphysema, end-s tage renal disease, and dementia, he is not a good surgical candidate and would recommend outpatient followup with reimaging in 3-6 months to see if this changes. I would not recommend any further ev aluation than that, given his overall poor functional status. CONDITION ON DISCHARGE: Good. PHYSICAL EXAMINATION: VITAL SIGNS: Stable. Slightly hypertensive with a blood pressure of 150/80. Oxygen sats are 93% on 6 L. GENERAL: He is a pleasant 75-year-old. He is alert and oriented x3. HEART: Regular. LUNGS: Diminished. ABDOMEN: Soft. No edema. DISCHARGE MEDICATIONS: Please see discharge medication form. FOLLOWUP INSTRUCTIONS: He will be discharged back to his long-term care at [facility]. I recommend followup with Neurology if he has any further episodes of altered mental status to confirm a diagnos is. Also recommend followup imaging of his pancreatic mass if his primary care physician and family feel that it would be beneficial to him. At this time, he is not a surgical candidate and would no t necessarily recommend followup unless the family wishes it. Copy requested to: [facility] /[id number]/MODL
--- NOTE | 2016-07-27 15:28 | CPEKG ---
Heart Rate: 84 RR Interval: 714 P-R Interval: 172 QRSD Interval: 106 QT Interval: 424 QTC Interval: 502 P [place]: 64 QRS [place]: 7 T Wave [place]: 36 EKG Severity - ABNORMAL ECG - EKG Impression: SINUS RHYTHM EKG Impression: VENTRICULAR PREMATURE COMPLEX EKG Impression: PROBABLE LEFT ATRIAL ABNORMALITY EKG Impression: PROLONGED QT INTERVAL Electronically Signed By: Megan Weldon 27-Jul-2016 17:10:00
[2016-07-27 16:13] VITALS: BP 177/98; PULSE 80; O2SAT 94
[2016-07-28] MEDS ORDERED: METOPROLOL SUCCINATE XR 25 MG TAB PO SCH (08:00)
== END 2016-07-27 16:56 | DRG 947 ==
LOC: EDUNIT# → OBSVTOIN 23:13 → F3N 07-26 00:15
PROVIDERS: ADMIT Internal Medicine; ATTEND Internal Medicine
PROC: 02HV33Z Insertion of Infusion Device into Superior Vena Cava, Percutaneous Approach (ICD-10-PCS; principal; 2016-07-25)
PROC: 5A1D00Z (ICD-10-PCS; 2016-07-26)
DX: R41.82 Altered mental status, unspecified (principal); I12.0 Hypertensive chronic kidney disease with stage 5 chronic kidney disease or end stage renal disease; N18.6 End stage renal disease; E11.22 Type 2 diabetes mellitus with diabetic chronic kidney disease; K86.9 Disease of pancreas, unspecified; R10.9 Unspecified abdominal pain; K57.30 Diverticulosis of large intestine without perforation or abscess without bleeding; J43.2 Centrilobular emphysema; J96.10 Chronic respiratory failure, unspecified whether with hypoxia or hypercapnia; F03.90 Unspecified dementia, unspecified severity, without behavioral disturbance, psychotic disturbance, mood disturbance, and anxiety; Z66 Do not resuscitate; Z99.2 Dependence on renal dialysis; Z99.81 Dependence on supplemental oxygen
CPT/HCPCS: 82947-QW; 92523-GN; 96365; 97162-GP; 97166-GO; 97535-GO; G8978-GP-CK; G8979-GP-CI; G8987-GO-CM; G8988-GO-CK; G9168-GN-CK; G9169-GN-CI; J0360; J1815; Q9967

== ENCOUNTER 2017-05-08 17:47 | Inpatient (IN) | payer OTHER, MEDICAID ==
[2017-05-08] MEDS ORDERED: NITROGLYCERIN/D5W 50 MG/250 ML BOTTLE IV ONE (17:55)
[2017-05-08] MEDS ORDERED: ROCURONIUM 100 MG/10 ML VIAL IVP ONE (17:59)
[2017-05-08] MEDS ORDERED: ETOMIDATE 40 MG/20 ML INJ IVP ONE (18:01)
[2017-05-08] MEDS ORDERED: PROPOFOL/EMULSION 1,000 MG/100 ML BOTTLE IV ONE (18:03)
[2017-05-08 18:09] LABS: PLATELET COUNT 158 10^3/uL (150-400)
[2017-05-08] MEDS ORDERED: fentaNYL 100 MCG/2 ML INJ IVP ONE (18:10)
[2017-05-08] MEDS ORDERED: IPRATROPIUM/ALBUTEROL 3 ML DEYVIAL ONE ×2 (18:12→18:27)
--- NOTE | 2017-05-08 18:13 | CPEKG ---
Heart Rate: 87 RR Interval: 690 P-R Interval: 168 QRSD Interval: 112 QT Interval: 404 QTC Interval: 486 P [place]: 67 QRS [place]: -58 T Wave [place]: 44 EKG Severity - ABNORMAL ECG - EKG Impression: SINUS ARRHYTHMIA, RATE 75-103 EKG Impression: VENTRICULAR PREMATURE COMPLEX EKG Impression: PROBABLE LEFT ATRIAL ABNORMALITY EKG Impression: LEFT ANTERIOR FASCICULAR BLOCK Electronically Signed By: Britni Glilespie 08-May-2017 20:12:18
[2017-05-08 18:17] LABS: INR 1.03 (0.83-1.16); PROTIME(PATIENT) 13.7 SEC (12.0-15.0)
[2017-05-08] MEDS ORDERED: NS 250 ML IV ONE ×2 (18:18→22:06)
[2017-05-08] MEDS ORDERED: PROPOFOL 200 MG/20 ML VIAL IVP ONE (18:19)
--- NOTE | 2017-05-08 18:22 | EDPHY ---
H & P Time Seen by Provider: 05/08/17 17:52 HPI/ROS: CHIEF COMPLAINT: Altered mental status, respiratory distress HISTORY OF PRESENT ILLNESS: Patient is a 76-year-old male with a history of CHF and COPD presents emergency department with altered mental status and respiratory distress. He came in by EMS from a residential. Upon their arrival he was responsive but seemed to have difficulty breathing. They placed him on CPAP. Per report, the patient has had increasing respiratory distress and become more lethargic. No recent fevers or chills per report. It is noted the patient recently came off DNR status per EMS. Patient is unable to give further history on his arrival. Patient missed his dialysis today due to his condition. REVIEW OF SYSTEMS: Unable to obtain due the patient's altered mental status Past Medical/Surgical History: Includes CHF and COPD Smoking Status: Unknown if ever smoked Physical Exam: Vitals noted GENERAL: Somnolent, the no active distress. CPAP in place HEENT: Eyes closed to voice. Eyes open to painful stimulus. Dentures in place. Moist mucous membranes. NECK: No thyromegaly, no lymphadenopathy, supple. RESPIRATORY: Bilateral rales and rhonchi at the base. No notable wheezing. CVS: Regular rate and rhythm, no rubs, murmurs, or gallops. ABDOMEN: Soft, nontender, nondistended, no organomegaly. BACK: Normal to inspection, no CVA tenderness. SKIN: Normal color, no rash, warm, dry. No pallor. EXTREMITIES: No pedal edema, no calf tenderness, no Homans sign or cords, no joint swelling. NEURO/PSYCH: Somnolent and minimally responsive, moves all extremities. Constitutional: Initial Vital Signs Temperature (C) 36.8 C 05/08/17 17:47 Heart Rate 92 05/08/17 17:47 Respiratory Rate 22 H 05/08/17 17:47 Blood Pressure 110/62 05/08/17 17:47 O2 Sat (%) 94 05/08/17 17:47 O2 Delivery Mode Ventilator O2 (L/minute) 15 Allergies/Adverse Reactions: lisinopril Allergy (Verified 11/14/15 06:13) Home Medications: Medication Instructions Recorded QUEtiapine FUMARATE [Seroquel 25 12.5 mg PO DAILY@17 11/14/15 mg (*)] Clopidogrel Bisulfate [Plavix (*)] 75 mg PO DAILY 02/16/16 Gabapentin [Neurontin 100 MG (*)] 100 mg PO BID 02/16/16 Insulin Glargine [Lantus 100 24 units SC HS 02/16/16 UNITS/ML (*)] Lactulose 20 gm PO DAILY PRN 02/16/16 Nitroglycerin [Nitrostat 0.4 mg 0.4 mg SL Q5M PRN 02/16/16 (*)] [place]-3 Fatty Acids [Fish Oil 1000 1,000 mg PO DAILY 02/16/16 mg (*)] Pantoprazole Sodium [Protonix 40mg 40 mg PO DAILY 02/16/16 (*)] Polyethylene Glycol 3350 [Miralax 17 gm PO DAILY PRN 02/16/16 17 gm (*)] Dextrose Oral Gel [Glucose Gel (*)] 15 gm PO ONCE PRN 06/05/16 Glucagon,Human Recombinant 1 mg IJ DAILY PRN 06/05/16 [Glucagon Emergency Kit] Herbals/Supplements -Info Only 1 ea PO DAILY 06/05/16 Insulin Lispro [humALOG LISPRO 100 0 - 16 unit SC TIDMEAL 06/05/16 units/ml (*)] Ipratropium/Albuterol [Duoneb (*)] 3 ml IH QID@08,12,16,20 06/05/16 Metoprolol Succinate Xr [Toprol Xl 25 mg PO TUTHSA 06/05/16 25 mg (*)] Ondansetron Odt [Zofran Odt 4 mg 4 mg PO Q6HRS PRN 06/05/16 (*)] Sertraline HCl [Zoloft 100mg (*)] 100 mg PO DAILY 06/05/16 Sevelamer Carbonate [Renvela] 800 mg PO TID@08,12,17 06/05/16 Acetaminophen [Tylenol 325mg (*)] 650 mg PO Q4HRS PRN #0 tab 06/08/16 Atorvastatin Calcium [Lipitor 10 10 mg PO HS 07/25/16 mg (*)] Cholecalciferol Vit D3 [Vitamin D3 1,000 units PO DAILY 07/25/16 (*)] Metoprolol Succinate 50 mg PO SUMOWEFR 07/25/16 Venlafaxine Xr [Effexor Xr 37.5MG 37.5 mg PO DAILY 07/25/16 (*)] Sodium Polystyrene Sulfonate 20 ml PO DAILY 07/26/16 [Kayexalate 15GM/60 ML Oral Liquid] Acetaminophen [Tylenol 325mg (*)] 650 mg PO Q4HRS PRN #0 tab 07/27/16 Dextrose 50% Syringe 25 gm IVP PRN PRN #0 syr 07/27/16 Neomy Sulf/Bacitrac Zn/Poly 1 gwen TP DAILY #0 oint 07/27/16 [Triple Antibiotic Oint tube (*)] Medical Decision Making - Diagnostics EKG Interpretation: Sinus rhythm at 87. Left anterior fascicular block. Normal intervals. No ST or T-wave changes Imaging Results: Imaging Impressions Chest X-Ray 05/08/17 17:56 Impression: 1. Endotracheal tube is slightly into the right mainstem bronchus. 2. Mild pulmonary edema and decreased lung volume. Findings and recommendations discussed with TU CEVALLOS at 1825 hour, . Final report concurs with initial preliminary interpretation. ED Course/Re-evaluation: In the emergency department I met EMS on arrival. I took report from the paramedics. With difficulty obtaining blood pressure readings from her chicas and manual blood pressure was taken. Please refer the nursing notes. Patient. Fairly somnolent. I contacted Respiratory therapy to inform them that we would perform RSI. Laboratory studies and EKG were obtained. I-STAT revealed a potassium was 6.1. This was blood drawn from EMS. Patient was intubated using etomidate and rocuronium. The paralytic was switched from succinylcholine due to the elevated potassium. Patient tolerated the procedure well. He had no desaturation. Post intubation x-ray revealed the ET tube slightly deep at the amber. This was withdrawn 1 cm. Patient also appeared to have findings of CHF. No pneumothorax was visible. Post intubation patient's systolic blood pressure bumped up to 157. I felt this may have been irritation from the patient. He is given fentanyl 50 mcg IV. Patient was placed on propofol drip for sedation. Once the propofol drip was in place I started nitroglycerin drip at 10mcg/min. Patient was noted to have a drop in his systolic blood pressure to 75. Nitroglycerin drip was discontinued. Propofol was turned down from 10 to 5. [place] [address]. Hematocrit was 43. Platelets were 158. Coags were normal. Lactic acid was 1.4. I spent considerable time at the patient's bedside. I evaluated all strips and is ongoing presentation. I discussed the case with Dr. Velasco from the hospitalist service. She will admit the patient. Patient a Malik catheter placed. This improved his blood pressure. Patient was given Versed 1 mg IV for sedation. I have not restarted is nitroglycerin at this time. I will wait till after his scan to ensure that his blood pressure stabilizes. 1912: I rechecked the patient when he returned from CT imaging. Blood pressure was 177/112. Patient was placed on propofol. 1934: The patient's pressure again dropped. I feel the patient is not tolerating propofol well. This was discontinued. I discussed this with Dr. Velasco. Head CT: Please refer the dictated report. No acute disease. I discussed the case with Dr. Trinidad from renal. Differential Diagnosis: My differential includes but is not limited to CHF exacerbation, COPD exacerbation, pneumonia, bronchitis, ACS, acute DC, dysrhythmia, electrolyte abnormality, sugar abnormality, bacteremia, sepsis Critical Care Time: The patient required 35 min of critical care time. This was exclusive of any unbundled procedure. This was due to the patient's critical condition, need for numerous interventions, extensive time spent at the patient's bedside, consultation with hospitalist service, being placed on both propofol and nitroglycerin drips appearing - Data Points Laboratory Results: Laboratory Results 05/08/17 17:58 05/08/17 17:20 05/08/17 05/08/17 05/08/17 17:58 17:58 17:58 WBC 13.62 10^3/uL H 10^3/uL (3.80-9.50) RBC 4.57 10^6/uL 10^6/uL (4.40-6.38) Hgb 13.5 g/dL L g/dL (13.7-17.5) POC Hgb Hct 43.4 % % (40.0-51.0) POC Hct MCV 95.0 fL fL (81.5-99.8) MCH 29.5 pg pg (27.9-34.1) MCHC 31.1 g/dL L g/dL (32.4-36.7) RDW 19.2 % H % (11.5-15.2) Plt Count 158 10^3/uL 10^3/uL (150-400) MPV 10.1 fL fL (8.7-11.7) Neut % (Auto) 86.1 % H % (39.3-74.2) Lymph % (Auto) 7.4 % L % (15.0-45.0) [place] % (Auto) 5.3 % % (4.5-13.0) Eos % (Auto) 0.5 % L % (0.6-7.6) Baso % (Auto) 0.4 % % (0.3-1.7) Nucleat RBC Rel Count 0.0 % % (0.0-0.2) Absolute Neuts (auto) 11.72 10^3/uL H 10^3/uL (1.70-6.50) Absolute Lymphs (auto) 1.01 10^3/uL 10^3/uL (1.00-3.00) Absolute Monos (auto) 0.72 10^3/uL 10^3/uL (0.30-0.80) Absolute Eos (auto) 0.07 10^3/uL 10^3/uL (0.03-0.40) Absolute Basos (auto) 0.06 10^3/uL 10^3/uL (0.02-0.10) Absolute Nucleated RBC 0.00 10^3/uL 10^3/uL (0-0.01) Immature Gran % 0.3 % % (0.0-1.1) Immature Gran # 0.04 10^3/uL 10^3/uL (0.00-0.10) PT 13.7 SEC SEC (12.0-15.0) INR 1.03 (0.83-1.16) APTT 27.3 SEC SEC (23.0-38.0) VBG Lactic Acid 1.4 mmol/L mmol/L (0.7-2.1) POC Sodium Sodium POC Potassium Potassium POC Chloride Chloride Carbon Dioxide Anion Gap POC BUN BUN Creatinine POC Creatinine Estimated GFR Glucose POC Glucose Calcium Total Bilirubin Conjugated Bilirubin Unconjugated Bilirubin AST ALT Alkaline Phosphatase Troponin I NT-Pro-B Natriuret Pep Total Protein Albumin Lipase 05/08/17 05/08/17 17:47 17:20 WBC RBC Hgb POC Hgb 16.3 gm/dL gm/dL (13.7-17.5) Hct POC Hct 48 % % (40-51) MCV MCH MCHC RDW Plt Count MPV Neut % (Auto) Lymph % (Auto) [place] % (Auto) Eos % (Auto) Baso % (Auto) Nucleat RBC Rel Count Absolute Neuts (auto) Absolute Lymphs (auto) Absolute Monos (auto) Absolute Eos (auto) Absolute Basos (auto) Absolute Nucleated RBC Immature Gran % Immature Gran # PT INR APTT VBG Lactic Acid POC Sodium 137 mEq/L mEq/L (135-145) Sodium 142 mEq/L mEq/L (135-145) POC Potassium 6.1 mEq/L H mEq/L (3.3-5.0) Potassium 6.5 mEq/L H* mEq/L (3.5-5.2) POC Chloride 98 mEq/L mEq/L (97-110) Chloride 94 mEq/L L mEq/L (97-110) Carbon Dioxide 28 mEq/l mEq/l (22-31) Anion Gap 20 mEq/L H mEq/L (8-16) POC BUN 57 mg/dL H mg/dL (7-23) BUN 57 mg/dL H mg/dL (7-23) Creatinine 10.2 mg/dL H* mg/dL (0.7-1.3) POC Creatinine 10.0 mg/dL H* mg/dL (0.7-1.3) Estimated GFR 5 Glucose 121 mg/dL H mg/dL (70-100) POC Glucose 128 mg/dL H mg/dL (70-100) Calcium 9.5 mg/dL mg/dL (8.5-10.4) Total Bilirubin 0.5 mg/dL mg/dL (0.1-1.4) Conjugated Bilirubin 0.5 mg/dL mg/dL (0.0-0.5) Unconjugated Bilirubin 0.0 mg/dL mg/dL (0.0-1.1) AST 33 IU/L IU/L (17-59) ALT 75 IU/L H IU/L (21-72) Alkaline Phosphatase 121 IU/L IU/L (38-126) Troponin I 0.073 ng/mL H ng/mL (0.000-0.034) NT-Pro-B Natriuret Pep 3810 pg/mL H pg/mL (0-450) Total Protein 8.1 g/dL g/dL (6.3-8.2) Albumin 4.6 g/dL g/dL (3.5-5.0) Lipase 245 IU/L IU/L (23-300) Medications Given: Discontinued Medications Etomidate (Etomidate) 25 mg IVP EDNOW ONE Stop: 05/08/17 18:02 Last Admin: 05/08/17 18:01 Dose: 25 mg Fentanyl (Sublimaze) 50 mcg IVP EDNOW ONE Stop: 05/08/17 18:11 Last Admin: 05/08/17 18:15 Dose: 50 mcg Sodium Chloride (Ns) 250 mls @ 0 mls/hr IV ONCE ONE PRN Reason: Wide Open Stop: 05/08/17 18:19 Last Admin: 05/08/17 18:33 Dose: 250 mls Midazolam HCl (Versed) 1 mg IVP EDNOW ONE Stop: 05/08/17 18:57 Last Admin: 05/08/17 18:56 Dose: 1 mg Propofol (Diprivan) 20 mg IVP EDNOW ONE Stop: 05/08/17 18:20 Last Admin: 05/08/17 18:19 Dose: 20 mg Rocuronium [place] (Zemuron) 100 mg IVP EDNOW ONE Stop: 05/08/17 18:00 Last Admin: 05/08/17 18:02 Dose: 100 mg Point of Care Test Results: 05/08/17 17:47 POC Sodium 137 POC Potassium 6.1 H POC Chloride 98 POC BUN 57 H POC Creatinine 10.0 H* POC Glucose 128 H Departure - Departure
[2017-05-08] MEDS ORDERED: NOREPINEPHRINE/NS 500 ML IV ONE (18:27)
[2017-05-08] MEDS ORDERED: ONDANSETRON DISINTEGRATING 4 MG TAB PO PRN (18:29)
[2017-05-08] MEDS ORDERED: ONDANSETRON 4 MG/2 ML VIAL IVP PRN (18:29)
[2017-05-08] MEDS ORDERED: ACETAMINOPHEN 325 MG TAB PO PRN (18:29)
[2017-05-08] MEDS ORDERED: MIDAZOLAM 2 MG/2 ML VIAL ONE (18:55)
[2017-05-08] MEDS ORDERED: MIDAZOLAM 2 MG/2 ML VIAL IVP ONE (18:56)
[2017-05-08] MEDS ORDERED: NOREPINEPHRINE BITARTRATE 4 MG in D5W 500 ML IV ONE (19:00)
[2017-05-08] MEDS ORDERED: NOREPINEPHRINE BITARTRATE 4 MG in NS 500 ML IV ONE (19:00)
[2017-05-08] MEDS ORDERED: CEFEPIME HCL 1 GM in STERILE WATER INJ 11.3 ML IV ONE (19:51)
[2017-05-08] MEDS ORDERED: DEXMEDETOMIDINE HCL 400 MCG in NS 100 ML IV SCH (20:00)
[2017-05-08] MEDS ORDERED: DEXMEDETOMIDINE/NS 4MCG/ML 50 ML BTL IV ONE (20:03)
[2017-05-08] MEDS ORDERED: DEXMEDETOMIDINE IN 0.9 % NACL 50 ML IV SCH (20:30)
[2017-05-08] MEDS: CHLORHEXIDINE GLUCONATE 15 ML UDL PO SCH (20:32)
[2017-05-08] MEDS ORDERED: FUROSEMIDE 40 MG/4 ML VIAL IVP ONE (20:45)
[2017-05-08] MEDS ORDERED: VANCOMYCIN 1.25 GM in NS 250 ML IV ONE (21:00)
[2017-05-08] MEDS: FAMOTIDINE 20 MG/NACL 50 ML IV SCH (21:05)
--- NOTE | 2017-05-08 21:05 | GCON ---
[f rep st] CONSULTATION DATE OF CONSULTATION: 05/08/2017 REASON FOR CONSULTATION: Opinion regarding end-stage kidney failure. HISTORY OF PRESENT ILLNESS: The patient is a pleasant 76-year-old gentleman, who I know from outpati ent hemodialysis. He presented to the Emergency Department today with altered mental status and incr easing shortness of breath. He was given supplemental oxygen, subsequently CPAP, neither of which re lieved the shortness of breath. The patient was intubated in the Emergency Department and transferre d up to the intensive care unit. It is unclear what caused his worsening respiratory status. The jes herrera does have a history of COPD. He is seen in the Intensive Care Unit and is sedated on the venti lator. PAST MEDICAL HISTORY: 1. End-stage kidney failure due to diabetes and hypertension. 2. Diabetes mellitus type 2. 3. Hypertension. 4. COPD. 5. History of congestive heart failure. 6. Gastroesophageal reflux disease. 7. Peripheral neuropathy. 8. Coronary artery disease. 9. History of stroke. 10. Status post arteriovenous fistula. 11. History of peripheral vascular occlusive disease. ALLERGIES: Lisinopril. CURRENT MEDICATIONS: 1. Cefepime 1 g IV given in the ED, 0.5 mg IV daily. 2. Precedex. 3. Pepcid 20 mg a day. 4. Vancomycin x1. 5. Zofran. FAMILY HISTORY: Noncontributory. REVIEW OF SYSTEMS: Unobtainable due to the patient's current clinical condition. PHYSICAL EXAMINATION: VITAL SIGNS: Blood pressure 113/80, pulse 88, respirations 18, temperature 36 .9 degrees. GENERAL: He is sedated on the ventilator. HEENT: Pupils are reactive to light. Mucou s membranes are moist. NECK: Positive JVD. Thyroid is palpable. HEART: Regular. No rub. No S3. LUNGS: Coarse breath sounds with rales and wheezes bilaterally. ABDOMEN: Quiet, nontender, mildl y distended. No obvious organomegaly, masses, or bruits. EXTREMITIES: Trace edema bilaterally. He has a left forearm arteriovenous fistula. NEUROLOGIC: Sedated and unresponsive. SKIN: Changes of arterial and venous insufficiency bilaterally. LYMPH: No palpable lymphadenopathy or lymphedema. M USCULOSKELETAL: No effusions or tenderness. LABORATORY: Serum sodium 142, potassium 6.5, chloride 94, CO2 28, BUN 57, creatinine 10.2, glucose 1 21, calcium 9.5, AST is 33, albumin 4.6, lipase 245, troponin 0.073. Urinalysis specific gravity of 1.013, pH 6, +2 protein, +1 blood. INR 1.03, pH 7.30, pCO2 47, PO2 160. Lactic acid 6.5, WBC 13.6, hemoglobin 13.5, hematocrit 43, platelet count 158,000. IMPRESSION: 1. End-stage kidney failure. The patient was not able to get to dialysis today due to his altered m ental status. 2. Hyperkalemia. Needs urgent dialysis. 3. Volume overload. We will try to get some fluid off with dialysis tonight. 4. Respiratory failure, on the ventilator. 5. Mental status changes. Workup is underway. Thank you for allowing me to participate in the care of your patient. If there are any questions, pl ease do not hesitate to contact us. We will be following along with you. /[id number]/MODL
--- NOTE | 2017-05-08 21:30 | GHP ---
[f rep st] HISTORY AND PHYSICAL DATE OF ADMISSION: 05/08/2017 CHIEF COMPLAINT: Shortness of breath. HISTORY OF PRESENT ILLNESS: A 76-year-old resident of a intermediate facility who was brought in by EMS today with respiratory distress. The patient was emergently intubated in the emergency depart ment for airway protection. Most of the history was obtained by family who had been visiting with th e patient earlier in the day. Family denies any complaints of fevers or chills. Denies any cough, a ny new reported shortness of breath. He denied any complaints of preceding chest pain. The patient did note feeling weak and shaky, had had a reported loose stool, but no diarrhea, was not reporting a bdominal pain, had eaten normal breakfast and lunch without complication or vomiting. The patient wa s found to be short of breath and transported by EMS. Upon arrival to the emergency department, the patient was in critical condition requiring intubation for ventilatory support. Per the ER's information, the patient's rescinded his Do Not Resuscita te, as his medical decision maker, and asked that full respiratory support including intubation be pr ovided. Therefore, the patient was intubated in the emergency department. The patient was due for hemodialysis today, but was not taken, as he was reportedly not feeling well and there were concerns that he had infectious diarrhea. PAST MEDICAL HISTORY: 1. End-stage renal disease, hemodialysis dependent. 2. Hypertension. 3. Diastolic heart failure. 4. Diabetes. 5. Coronary artery disease. 6. History of CVAs. 7. COPD with chronic 2 to 5 L oxygen requirement. 8. Hyperlipidemia. SOCIAL HISTORY: Patient does not actively smoke, drink alcohol, or use illicit drugs. FAMILY HISTORY: Positive for diabetes. REVIEW OF SYSTEMS: A 10-point review was obtained from the family, is negative with the exception of that reported in the HPI. ADVANCED DIRECTIVES: The patient is currently listed as full core, full tube. That discussion will need to be readdressed as historically in our records he is shown as a DNR. PHYSICAL EXAMINATION: VITAL SIGNS: Blood pressure is 126/75, heart rate 86, respiratory rate 19, 99 % on 100% FiO2 on the ventilator. Temperature 36.8. GENERAL: This is a comorbid-appearing elderly male, intubated, lying flat. HEENT: Notable for endotracheal tube. CARDIAC: Heart sounds are dist ant but regular. PULMONARY: Patient is clear to auscultation on anterior auscultation. No wheezing or rhonchi are appreciated. GASTROINTESTINAL: Patient has positive bowel sounds. ABDOMEN: Soft a nd nontender. MUSCULOSKELETAL: Negative for any lower extremity edema. SKIN: Negative for any not able rashes. NEUROLOGIC: Patient is sedated. LABORATORY DATA: White count 13.6, baselines appear between 7 and 8. Hematocrit is 43.5, however, p revious baselines are in the 30s. Platelet count 158. Potassium 6.5, creatinine 10.2, blood glucose 121, anion gap 20. Troponin 0.073, which is below his preceding baselines at 0.4 to 0.5. Chest x-r ay, which I personally reviewed and interpreted, does show vascular redistribution, most consistent w ith volume overload. No lobar pneumonias are appreciated. EKG, which I personally reviewed and inte rpreted, shows sinus rhythm, left axis deviation with no acute ST-T changes. ASSESSMENT AND PLAN: 1. This is a 76-year-old male presenting with acute hypoxic respiratory failure. The patient has a history of chronic obstructive pulmonary disease, on oxygen supplementation. His presentation is rashad te acute for the lack of symptoms the patient reportedly was expressing prior to his transport to the emergency department. Findings on chest x-ray seen most consistent with volume overload, could be e xplained by the patient missing dialysis today. We will admit the patient empirically, start intrave nous antibiotics for healthcare-associated pneumonia until the picture is clearer. Patient did drop his blood pressures in the emergency department with sedation. Once this is stabilized, will give a single dose of intravenous Lasix. Nephrology has been consulted from the emergency department and [facility] provide hemodialysis in the morning. We will recheck a chest x-ray in the morning and follow re spiratory pathogen PCR and blood cultures closely. 2. Acute leukocytosis. Again, the source is unclear. Urine was sent from the emergency department, however, the patient is nearly anuric in his dialysis-dependent stage. We are empirically starting antibiotics for possible healthcare-associated pneumonia. We will hold on any other coverage at this time. Recheck his CBC in the morning. 3. Severe hyperkalemia secondary to end-stage renal disease. Patient did miss his hemodialysis toda y, received a small amount of fluids in the emergency department on initial arrival. We will give 1 dose IV Lasix and recheck. Again, Nephrology has been contacted and will provide hemodialysis tomorr ow. 4. Diabetes. We will place the patient on careful sliding scale insulin, currently satisfied with h is blood glucoses in the 120s to 140s. 5. Hypertension. The patient did have a drop in his blood pressure in the emergency department with sedation. We will hold his chronic medications at this time, follow him closely on sedation in the intensive care unit. 6. Chronic obstructive pulmonary disease. We will continue patient on scheduled DuoNebs and, again, we have begun empiric antibiotics. 7. History of cerebrovascular accident. Patient is currently sedated, but was nonfocal neurological ly when he presented to the emergency department. Once medications are reconciled, can restart his h ome medications. Noncontrast CT of the head in the emergency department was negative for any acute i ntracranial findings. 8. Prophylaxis with subcutaneous heparin secondary to end-stage renal. DIET: N.p.o. as patient is intubated. DISPOSITION: I expect greater than 2 midnights as the patient is presenting with severe acute hypoxi c respiratory failure requiring ICU level ventilatory support. I have discussed the case with the emergency room physician. Patient will be triaged to the ICU for care. /[id number]/MODL
[2017-05-08] MEDS: NOREPINEPHRINE BITARTRATE 4 MG in NS 500 ML IV SCH (22:00)
[2017-05-08] MEDS: MIDAZOLAM HCL 50 MG in D5W 50 ML IV SCH (23:00)
[2017-05-08] MEDS: HEPARIN 5,000 UNIT/0.5 ML SYR SC SCH (23:25)
--- NOTE | 2017-05-09 00:21 | POSTOPPROG ---
Post Op Note Date of Operation: 05/09/17 Surgeon: Yanick Bridges (, FACS) Anesthesia: Local (Specify) Pre-op Diagnosis: need for venous access Post-op Diagnosis: same Indication: sepsis, renal failure Procedure: placement right femoral 3x lumen cath Inf/Abcess present in the surg proc area at time of surgery?: No EBL: Minimal (2ml) Complications: none
--- NOTE | 2017-05-09 01:58 | PDMN ---
Medical Necessity Medical necessity: C/M review: Patient meets INPT criteria per MCG M-325 Renal failure, chronic, Respiratory failure GRG: Acute and persistent - hypoxic respiratory failure, leukocytosis of unclear source, empiric IV antibiotics for possible healthcare associated pneumonia, severe hyperkalemia secondary to ESRD , WBC 13.62, K 6.5, BUN 57, Cr 10.2, troponin 0.073, 0.093, BNP 3810, cultures pending, requiring emergent intubation in ED, Nephrology consult, planned hemodialysis, ongoing mechanical ventilation, infusions: IV Norepinephrine, IV Precedex, IV Midazolam, IV meds: Cefepime Q 24 hrs., Pepcid Q 24 hrs., Vancomycin, cardiac monitoring, pulse oximetry in ICU, comorbid diabetes, COPD on chronic O2 2-5L/min supplementation, hypertension, history of CVA, diastolic heart failure, CAD, hyperlipidemia. MD anticipates > 2 MN LOS for ongoing med nec for eval and TX of above. Patient is Medicare Advantage which follows guidelines CMS puts forth.
--- NOTE | 2017-05-09 04:31 | GOP ---
[f rep st] OPERATIVE REPORT DATE OF OPERATION: 05/09/2017 SURGEON: Yanick Bridges MD ANESTHESIA: Local. PREOPERATIVE DIAGNOSIS: 1. Need for venous access. 2. Renal failure. 3. Sepsis. POSTOPERATIVE DIAGNOSIS: 1. Need for venous access. 2. Renal failure. 3. Sepsis. PROCEDURE PERFORMED: Placement of right femoral triple-lumen catheter. FINDINGS: Uncomplicated catheter placement. ESTIMATED BLOOD LOSS: For the procedure 2 mL. DESCRIPTION OF PROCEDURE: After informed consent was obtained, the patient was brought placed supine . The right groin was prepped and draped in the usual fashion. Before proceeding, a time-out and id entification of the patient was performed. 1% lidocaine plain was used to infiltrate the site of the femoral vein puncture. The femoral vein wa s confirmed to be patent by preoperative ultrasound, and the skin had been marked over the femoral ve in. After the skin had been anesthetized, an 18-gauge thin wall needle was used to puncture the righ t femoral vein on the first pass. A flexible J-wire was introduced and advanced without resistance. The needle was withdrawn. A small brisa was made in the skin with #11 scalpel blade and a dilator pa ssed over the wire. Dilator was removed and replaced with a triple-lumen catheter which was advanced without resistance to approximately 15 cm. The wire was withdrawn. Good venous return was noted. The catheter was flushed with normal saline and sterile caps were applied. A Biopatch was placed ove r the venipuncture site, and the catheter was secured to the skin with 3-0 silk suture. Sterile dres sings were placed. Postprocedural x-ray showed confirmatory line placement. COMPLICATIONS: None. /[id number]/MODL
[2017-05-09 05:20] LABS: PLATELET COUNT 124 10^3/uL (150-400)
[2017-05-09] MEDS: MIDAZOLAM HCL 50 MG in D5W 50 ML IV SCH (05:38)
[2017-05-09] MEDS: HEPARIN 5,000 UNIT/0.5 ML SYR SC SCH ×3 (05:40→21:22)
[2017-05-09] MEDS: NOREPINEPHRINE BITARTRATE 4 MG in NS 500 ML IV SCH ×2 (05:41→18:47)
[2017-05-09] MEDS ORDERED: ENOXAPARIN 40 MG/0.4 ML SYR SC SCH (09:00)
[2017-05-09] MEDS ORDERED: CEFEPIME HCL IV SCH ×2 (09:00→21:00)
[2017-05-09] MEDS ORDERED: NS IV SCH (09:00)
--- NOTE | 2017-05-09 09:50 | ASMTCMCOM ---
CM Note CM Note Notes: 76 yr old male admitted from [facility] due to respiratory failure. He has a hx of end stage renal dis, HTN, CAD, CHF, HDL, DM, CVA's, COPD. Patient presently on a vent. CM to follow for discharge needs. Date Signed: 05/09/2017 09:49 AM Electronically Signed By:Constance Carrero LCSW
[2017-05-09] MEDS ORDERED: PROPOFOL/EMULSION 1,000 MG/100 ML BOTTLE IV ONE (10:57)
[2017-05-09] MEDS ORDERED: PANTOPRAZOLE SODIUM 40 MG TAB PO SCH (11:45)
--- NOTE | 2017-05-09 11:48 | HOSPPROG ---
Hospitalist Progress Note Assessment/Plan: # acute encephalopathy - d/t infection likely # acute on chronic (2-5L O2) respiratory failure - may be d/t volume overload from missing HD yesterday - currently ventilated; wean as tolerated - placed on versed for sedation when hypotensive on propofol- will attempt to change back to propofol # septic shock (hypotension on pressors, leukocytosis, resp failure), source is bacteremia - cont levophed - echo pending # strep bacteremia - cont vanc, cefepime per ID - ID consult # ESRD - HD per renal # hyperkalemia - resolved s/p HD # CAD - plavix, hold BB # hx CVA - plavix, hold BB # DM - glucs ok off insulin # goals of care - unclear; patient's family clear that patient wants intubation , but does not want CPR; however, he reportedly was on hospice (but getting HD) ; CM looking into this - he is a [facility] patient 45 mins bedside/floor cc time; patient critically ill from respiratory failure requiring mechanical ventilation and septic shock requiring pressors Subjective: received HD overnight; BCx positive today; met with patient's family via respiratory care practitioner Objective: Vital Signs Temp Pulse Resp BP Pulse Ox 37.7 C 96 18 130/74 H 95 05/09/17 08:00 05/09/17 11:00 05/09/17 11:00 05/09/17 11:00 05/09/17 11:00 Microbiology 05/08/17 18:55 Blood Panel (PCR) - Final Blood Streptococcus 05/08/17 18:54 Respiratory Panel (PCR) - Final Nasal, Sinus - Swab No Organism Detected Laboratory Results 05/09/17 05:10 05/09/17 05:10 05/08/17 05/09/17 05/10/17 05:59 05:59 05:59 Intake Total 1238.6 Output Total 1900 Balance -661.4 PT 13.7 SEC (12.0-15.0) 05/08/17 17:58 INR 1.03 (0.83-1.16) 05/08/17 17:58 - Physical Exam Constitutional: other (intubated, sedated) Ears, Nose, Mouth, Throat: other (ET tube) Cardiovascular: regular rate and rhythym, no murmur, rub, or gallop Respiratory: no rales or rhonchi, inspiratory crackles, No expiratory wheeze Gastrointestinal: normoactive bowel sounds, soft, non-tender abdomen Genitourinary: schroeder in urethra ICD10 Worksheet Patient Problems: Problems Problem Status Onset Hyperglycemia Acute Respiratory failure Acute End stage renal disease Acute Pneumonia Acute Fluid overload Acute Hyperkalemia Acute Renal failure Acute Syncope Acute Anemia Acute Chest pain Acute Chest pain Acute Hyperkalemia Acute Pancreatitis Acute Altered mental status, unspecified Acute
[2017-05-09] MEDS ORDERED: CALCIUM GLUCONATE 2 GM in D5W 50 ML IV ONE (12:04)
--- NOTE | 2017-05-09 12:08 | SOAPPROG ---
SOAP Progress Note Assessment/Plan: Assessment: ESRD, HD yesterday, plan on tomorrow as well hypocalcemia, will supplement resp failure on the vent streptococcal bacteremia/sepsis Plan: HD tomorrow supp Ca++ today continue support Abx for strep bacteremia 05/09/17 12:05 Subjective: unresponsive on the vent family at bedside, all questions answered to their satisfaction Objective: Vital Signs Temp Pulse Resp BP Pulse Ox 37.7 C 89 20 130/74 H 96 05/09/17 08:00 05/09/17 11:56 05/09/17 11:56 05/09/17 11:00 05/09/17 11:56 Microbiology 05/08/17 18:55 Blood Panel (PCR) - Final Blood Streptococcus 05/08/17 18:54 Respiratory Panel (PCR) - Final Nasal, Sinus - Swab No Organism Detected Laboratory Results 05/09/17 05:10 05/09/17 05:10 05/08/17 05/09/17 05/10/17 05:59 05:59 05:59 Intake Total 1238.6 Output Total 1900 Balance -661.4 PT 13.7 SEC (12.0-15.0) 05/08/17 17:58 INR 1.03 (0.83-1.16) 05/08/17 17:58 Physical Exam - Physical Exam General Appearance: other (intubated, sedated) Respiratory: other (coarse bs bilat, +rh, no wh) Cardiac/Chest: regular rate, rhythm, edema, systolic murmur Abdomen: other (quiet, nt) Extremities: swelling (trace, LE bilat) Neuro/Psych: other (no response to his name, some myoclonus) ICD10 Worksheet Patient Problems: Problems Problem Status Onset Altered mental status, unspecified Acute Anemia Acute Chest pain Acute Chest pain Acute End stage renal disease Acute Fluid overload Acute Hyperglycemia Acute Hyperkalemia Acute Hyperkalemia Acute Pancreatitis Acute Pneumonia Acute Renal failure Acute Respiratory failure Acute Syncope Acute
[2017-05-09] MEDS ORDERED: fentanYL/NACL/100 ML BAG IV ONE (12:59)
[2017-05-09] MEDS: CHLORHEXIDINE GLUCONATE 15 ML UDL PO SCH ×2 (13:09→21:22)
[2017-05-09] MEDS: (Sevelamer Carbonate [Renvela] 800 MG) PO SCH ×2 (13:09→18:38)
[2017-05-09] MEDS: CLOPIDOGREL BISULFATE 75 MG TAB TUBE SCH (13:09)
[2017-05-09] MEDS ORDERED: NARCOTIC DRIP BAG-TOTAL ALL TYPES IV PRN (13:26)
[2017-05-09] MEDS: fentaNYL/NACL 100 ML IV SCH ×2 (13:30→21:00)
[2017-05-09] MEDS: PROPOFOL/EMULSION 100 ML IV SCH ×2 (13:30→16:26)
--- NOTE | 2017-05-09 15:18 | GCON ---
[f rep st] CONSULTATION A PULMONARY/CRITICAL CARE CONSULTATION DATE OF CONSULTATION: 05/09/2017 REFERRING PHYSICIAN: Minh Baez MD REASON FOR REFERRAL: Evaluation and management of acute respiratory failure. HISTORY: The patient is a 76-year-old gentleman with a known history of oxygen-dependent COPD who is a intermediate resident. He is apparently being visited by family and denied any symptoms of chest pain, fevers, or chills. He did feel a bit weak and shaky and had some loose stools. He developed a fairly abrupt onset of shortness of breath and was transported to the emergency department where he required intubation for ventilatory support and airway protection. He has remained intubated since t hat time. The patient's pulse has been stable, but he had a drop in blood pressure presumably relate d to propofol, which responded to norepinephrine. This has since been tapered off, and he has been a febrile. PAST MEDICAL HISTORY: 1. End-stage renal disease, dialysis dependent. 2. Hypertension. 3. Diastolic heart failure. 4. Coronary artery disease. 5. Diabetes. 6. History of CVAs. 7. History of COPD. MEDICATIONS: At the time of admission included Protonix, Nitrostat, Plavix, MiraLAX, Lantus, Sevelam er, insulin, metoprolol, hydralazine, Seroquel, Zoloft, and Spiriva. He was also on oxygen. Here in the hospital he has been placed on cefepime and is on fentanyl and propofol. He was on Versed becau se he developed some drop in blood pressure with propofol, but now has been able to tolerate propofol . SOCIAL HISTORY: The patient does not smoke or drink. FAMILY HISTORY: Positive for diabetes. REVIEW OF SYSTEMS: A 10-point review of systems is unobtainable because the patient is intubated and sedated. PHYSICAL EXAMINATION: GENERAL: The patient is intubated and sedated. VITAL SIGNS: The blood press ure is 119/64 with a heart rate of 83. He is afebrile. Oxygen saturations are 95% on 50% oxygen. H EENT: Normocephalic and atraumatic. No icterus neck. No JVD. Trachea is midline. CHEST: He has some rales in both bases. CARDIAC: Regular rate and rhythm without murmur. ABDOMEN: Soft, nontend er. Bowel sounds are present. EXTREMITIES: No clubbing, cyanosis, or edema. NEURO: The patient i s sedated. He is not responsive to verbal stimuli. He weakly moves extremities with noxious stimuli . LABORATORY: White blood count is 11.4, down from 13.6. Hemoglobin is 11.1. Platelet count is 124. Chemistry group is remarkable for a creatinine of 4.8, down from 10.2. Troponin is 0.052, down from 0.073. BNP is 3810. Potassium is 3.8, down from 6.5. An arterial blood gas shows a pH of 7.31 wit h a pO2 of 69, a CO2 of 43, and a bicarbonate of 22 on IMV with a tidal volume of 600 at a rate of 20 , and 40% oxygen. His oxygen has since been increased up to 50%. IMAGING PROCEDURE: A chest x-ray shows diffuse mild interstitial edema and cardiomegaly consistent w ith congestive heart failure/pulmonary edema. This has improved compared to his initial chest x-ray. Images reviewed by me. A blood culture is positive for Streptococcus. A urine culture is positive for 3 colony types. A respiratory panel is negative. ASSESSMENT: 1. Acute hypoxemic respiratory failure. The patient has underlying chronic obstructive pulmonary di sease, but developed worsening respiratory failure/distress in addition to this. He has been intubat ed and is stable on a ventilator at 50% oxygen. The likely causes are sepsis and fluid overload rela day to missing his dialysis. He has improved somewhat with dialysis yesterday, and repeat dialysis i s anticipated today. He is empirically being treated with antibiotics for his infection, with source unclear at this time. 2. Severe hyperkalemia. This is improved with dialysis. 3. Diabetes. The blood sugars are currently well controlled. 4. Chronic obstructive pulmonary disease. RECOMMENDATIONS: 1. Continue empiric antibiotics of cefepime and vancomycin as per ID. 2. Repeat dialysis today. 3. Wean the ventilator as tolerated. In the meantime, the patient will be sedated with propofol and fentanyl. 4. Continue DuoNeb. 5. Deep vein thrombosis prophylaxis with heparin. /[id number]/MODL
--- NOTE | 2017-05-09 15:39 | PCMIDPN ---
Assessment/Plan: Assessment: Streptococcal bacteremia in the setting of ongoing hemodialysis. Patient admitted yesterday evening through the emergency room with symptoms of infection. GPCs in chains found in initial blood culture. Streptococcus [facility] Patient is covered with cefepime and vancomycin. Single dose of vancomycin 1.25 g given yesterday evening. No more doses at present secondary to end-stage renal disease. Levophed is the sole remaining pressor that the patient is requiring. Process of titrating down presently. Plan: 1. Continue both vancomycin and cefepime empirically. 2. Follow ongoing blood cultures as well as patient response. May be able to consolidate antibiotic therapy in the next 24 hr once more stability is attained. 3. Follow temp curve and vancomycin levels periodically following hemodialysis. Subjective: Patient is intubated and sedated. Family present in the room. Patient is known to our group from a separate hospital admission 2016. Objective: Vancomycin # 1 Cefepime # 1 Vital Signs Temp Pulse Resp BP Pulse Ox 37.7 C 70 20 140/99 H 96 05/09/17 08:00 05/09/17 15:00 05/09/17 15:00 05/09/17 15:00 05/09/17 15:00 Microbiology 05/08/17 18:55 Blood Panel (PCR) - Final Blood Streptococcus 05/08/17 18:54 Respiratory Panel (PCR) - Final Nasal, Sinus - Swab No Organism Detected Laboratory Results 05/09/17 05:10 05/09/17 05:10 05/08/17 05/09/17 05/10/17 05:59 05:59 05:59 Intake Total 1238.6 Output Total 1900 Balance -661.4 - Physical Exam General Appearance: WD/WN, no apparent distress, other (Intubated and sedated), No alert Respiratory: lungs clear, normal breath sounds, other (Intubated) Cardiac/Chest: regular rate, rhythm, No tachycardia Extremities: normal inspection Skin: normal color, warm/dry, No rash ICD10 Worksheet Patient Problems: Problems Problem Status Onset Altered mental status, unspecified Acute Anemia Acute Chest pain Acute Chest pain Acute End stage renal disease Acute Fluid overload Acute Hyperglycemia Acute Hyperkalemia Acute Hyperkalemia Acute Pancreatitis Acute Pneumonia Acute Renal failure Acute Respiratory failure Acute Syncope Acute
--- NOTE | 2017-05-09 16:59 | ECHO ---
[email or web address] [address] [address] Main: [phone] Fax: Transthoracic Echocardiogram Name: IRENA VENCES MR#: [id number] Study Date: 05/09/2017 Study Time: 09:19 AM Date of : 1940 Age: 76 year(s) Height: 175 cm (68.9 in.) Weight: 85 kg (187.4 lb.) BSA: 2.01 m2 Gender: Male Examination: Echo Indication: Respiratory failure, Intubated Image Quality: Contrast: Requested by: Marie Velasco BP: 121 mmHg/83 mmHg Heart Rate: Rhythm: Normal sinus rhythm with ectopy Indication: Respiratory failure, Intubated Procedure Staff Rotary Filter Operator: Ed Ramirez RDCS Reading Physician: Abilio Cobb MD Requesting Provider: Conclusions: No regional wall motion abnormality. Diastolic dysfunction is present. . There is normal LV function with ectopy noted during the exam. The ejection fraction is estimated at 60%. Measurements: Chambers Valvular Assessment AV/MV Valvular Assessment TV/PV Normal Normal Normal Name Value Range Name Value Range Name Value Range Ao Martita (MM): 3.2 cm (2.2 cm-3.7 AV Vmax: 1.11 m/s (1 m/s-1.7 PV Vmax: 1.02 m/s (0.6 m/s-0.9 cm) m/s) m/s) IVSd (2D): 1.0 cm (0.6 cm-1.1 AV maxP mmHg ( - ) PV PGmax: 4 mmHg ( - ) cm) LVOT Vmax: 0.69 m/s (0.7 m/s-1.1 LVDd (2D): 4.8 cm (4.2 cm-5.9 m/s) cm) MV E Vmax: 0.45 m/s ( - ) LVDs (2D): 3.3 cm (2.1 cm-4 MV A Vmax: 0.96 m/s ( - ) cm) MV E/A: 0.47 ( - ) LVPWd (2D): 1.1 cm (0.6 cm-1 cm) LVEF (2D): 60 (>=54 %) RVDd(2D): 4.6 cm (1.9 cm-3.8 cmmm) Continued Measurements: Chambers Valvular Assessment AV/MV Name Value Name Value LADs Lon.0 cm MV E/E' Septal: 8.20 LA Area: 18.9 cm2 MV E/E' Lateral: 7.20 Patient: IRENA VENCES Study Date: 05/09/2017 Page 1 of 2 09:19 AM Findings: Left Ventricle: Normal size left ventricle. No regional wall motion abnormality. Diastolic dysfunction is present. . There is normal LV function with ectopy noted during the exam. The ejection fraction is estimated at 60%. Right Ventricle: Upper normal size right ventricle. Left Atrium: The left atrium is normal in size. Right Atrium: The right atrium is normal in size. Mitral Valve: The mitral valve is normal in appearance and function. Aortic Valve: Mild aortic cusp calcification is noted. No aortic valve stenosis is present. Tricuspid Valve: The tricuspid valve appears normal. Pulmonic Valve: The pulmonic valve is normal in appearance and function. Aorta: The aorta is normal. Pericardium: No pericardial effusion. (No Signature Object) Patient: IRENA VENCES Study Date: 05/09/2017 Page 2 of 2 09:19 AM [id number]
[2017-05-09] MEDS ORDERED: STERILE WATER IV SCH (21:00)
[2017-05-09] MEDS: FAMOTIDINE 20 MG/NACL 50 ML IV SCH (21:22)
[2017-05-10] MEDS: PROPOFOL/EMULSION 100 ML IV SCH ×4 (00:39→21:08)
[2017-05-10 03:05] LABS: HEPATITIS B SURFACE ANTIGEN NEGATIVE (NEGATIVE)
[2017-05-10 03:10] LABS: HEPATITIS B CORE AB IGM NEGATIVE (NEGATIVE)
[2017-05-10] MEDS: HEPARIN 5,000 UNIT/0.5 ML SYR SC SCH ×3 (05:10→20:38)
[2017-05-10 05:32] LABS: PLATELET COUNT 141 10^3/uL (150-400)
[2017-05-10] MEDS: fentaNYL/NACL 100 ML IV SCH ×2 (06:17→15:40)
[2017-05-10] MEDS ORDERED: SODIUM POLY SULF 15 GM/60 ML BOTTLE PO SCH (09:00)
[2017-05-10] MEDS: NOREPINEPHRINE BITARTRATE 4 MG in NS 500 ML IV SCH (09:26)
[2017-05-10] MEDS: (Sevelamer Carbonate [Renvela] 800 MG) PO SCH ×2 (10:48→14:40)
[2017-05-10] MEDS: CLOPIDOGREL BISULFATE 75 MG TAB TUBE SCH (11:26)
--- NOTE | 2017-05-10 12:16 | SOAPPROG ---
SOAP Progress Note Assessment/Plan: Assessment: 1. ESRD Had HD yesterday. Will repeat today with attempt at additional UF. Next on Wednesday. 2. Acute respiratory failure. +strep bacteremia, bilat pulm infiltrates c/w pna, also likely volume overload 3. B hemolytic strep bacteremia. Continues cefepime and vancomycin. Per ID. d/t PNA? 4. Code status. Family meeting later this am. Would be an appropriate candidate for hospice if not turning around quickly given his advanced dementia. Plan: 05/10/17 12:15 05/10/17 12:16 Subjective: Remains intubated on NE gtt and propofol. Family in room with lots of questions about prognosis and need for ET tube. Objective: Vital Signs Temp Pulse Resp BP Pulse Ox 37.1 C 65 20 110/60 96 05/10/17 04:00 05/10/17 10:00 05/10/17 10:00 05/10/17 10:00 05/10/17 10:00 Microbiology 05/08/17 18:55 Blood Panel (PCR) - Final Blood Streptococcus Laboratory Results 05/10/17 05:10 05/10/17 05:10 05/09/17 05/10/17 05/11/17 05:59 05:59 05:59 Intake Total 1238.6 1973.5 Output Total 1900 110 5 Balance -661.4 1863.5 -5 PT 13.7 SEC (12.0-15.0) 05/08/17 17:58 INR 1.03 (0.83-1.16) 05/08/17 17:58 Intubated, sedated, on propofol, comfortable FIO2 40% RRR, no m/g/r CTAB Abdom soft, nontender No edema L arm AVF with good thrill ICD10 Worksheet Patient Problems: Problems Problem Status Onset Hyperglycemia Acute Respiratory failure Acute End stage renal disease Acute Pneumonia Acute Fluid overload Acute Hyperkalemia Acute Renal failure Acute Syncope Acute Anemia Acute Chest pain Acute Chest pain Acute Hyperkalemia Acute Pancreatitis Acute Altered mental status, unspecified Acute
--- NOTE | 2017-05-10 14:10 | HOSPPROG ---
Hospitalist Progress Note Assessment/Plan: # acute hypoxic respiratory failure - suspect multifactorial-potential pneumonia +/- volume overload Oxygen saturations 96% on 40% FiO2 CXR (personally reviewed and interpreted) suggestive of volume overload - continue ventilatory support - continue IV antibiotics - continue hemodialysis per normal schedule # septic shock (hypotension on pressors, leukocytosis, resp failure), source is bacteremia - cont levophed- wean as able - echo pending # streptococcus bacteremia - cont ESRD dosed vanc and cefepime per ID # ESRD - HD per renal # hyperkalemia - admission potassium 6.5- resolved s/p HD # CAD - plavix, hold BB secondary to hypotension # hx CVA - plavix, hold BB # DM - BS 100-148- has not required insulin # goals of care - unclear; patient's family clear that patient wants intubation , but does not want CPR; family meeting with Hospice and palliative Care today Discussed the case with Dr. Canales-will continue ventilatory support today and further clarify goals of care Subjective: no events overnight Objective: Vital Signs Temp Pulse Resp BP Pulse Ox 37.1 C 65 20 110/60 96 05/10/17 04:00 05/10/17 10:00 05/10/17 10:00 05/10/17 10:00 05/10/17 10:00 Microbiology 05/08/17 18:55 Blood Panel (PCR) - Final Blood Streptococcus Laboratory Results 05/10/17 05:10 05/10/17 05:10 05/09/17 05/10/17 05/11/17 05:59 05:59 05:59 Intake Total 1238.6 1973.5 Output Total 1900 110 5 Balance -661.4 1863.5 -5 PT 13.7 SEC (12.0-15.0) 05/08/17 17:58 INR 1.03 (0.83-1.16) 05/08/17 17:58 - Physical Exam Constitutional: chronically ill appearing Eyes: anicteric sclera Ears, Nose, Mouth, Throat: dry mucous membranes Cardiovascular: regular rate and rhythym Respiratory: rhonchi Gastrointestinal: normoactive bowel sounds Genitourinary: no bladder fullness Skin: warm Musculoskeletal: No asymmetric calves Neurologic: No AAOx3 Psychiatric: No agitated Lymph, Heme, Immunologic: no cervical LAD ICD10 Worksheet Patient Problems: Problems Problem Status Onset Altered mental status, unspecified Acute Anemia Acute Chest pain Acute Chest pain Acute End stage renal disease Acute Fluid overload Acute Hyperglycemia Acute Hyperkalemia Acute Hyperkalemia Acute Pancreatitis Acute Pneumonia Acute Renal failure Acute Respiratory failure Acute Syncope Acute
[2017-05-10] MEDS ORDERED: cefTRIAXone 2 GM in STERILE WATER INJ 20 ML IV SCH (16:00)
[2017-05-10] MEDS ORDERED: ONDANSETRON DISINTEGRATING 4 MG TAB TUBE PRN (16:00)
[2017-05-10] MEDS ORDERED: ACETAMINOPHEN 325 MG TAB TUBE PRN (16:00)
--- NOTE | 2017-05-10 16:40 | ASMTCMCOM ---
CM Note CM Note Notes: Held a "Family Meeting for patient's Tra and her son-in-law. [facility] Hospice dealer compliance representative as well as Labeling Machine Operator and PODOPEDIATRICIANplumber's assistant were also in attendance. enlisted Hospice care in January thinking that it would add extra support for her while in the halfway. JOYCELYN provided an RN for comfort medications and and an aide for bathing. reports that patient told her 3wks ago that he wasn't interested in going to dialysis any longer. wanted him to continue with dialysis. She believes in the power of prayer and [facility]. She reports that he is DNR but when he became sicker at [facility] wanted him to be hospitalized. Her feelings are for him to pass when God directs. [facility] has cancelled their contract as of Wednesday when he was admitted. [facility] willing to take him back in their services if needed at a later time. His Hospice admitted dx was for COPD not renal failure, which is why he could continue with dialysis for comfort. This may have been confusing for the family. thinking with Hospice tx could be continued when usually tx end in favor of comfort. Patient has 3 daughters who are [id number] that they are trying to contact. A anesthesiologists' assistant came today for patient and family. Date Signed: 05/10/2017 04:40 PM Electronically Signed By:Constance Carrero LCSW
[2017-05-10] MEDS: LANSOPRAZOLE SUSP 30MG/10ML UDSYR (Adult) TUBE SCH (17:42)
[2017-05-10] MEDS: cefTRIAXone 2 GM in STERILE WATER INJ 20 ML IV SCH (17:42)
--- NOTE | 2017-05-10 17:45 | PDINTPN ---
[facility] Progress Note Assessment/Plan: Assessment: Sepsis: 1/2 blood cultures positive for Strep species. On CTX, got Vanco. Weaning NE. WBC coming down. Afebrile Respiratory failure: Likely multifactorial, with fluid overload, sepsis/ARDS likely contributing. Weaning FiO2, VE still fairly high. ESRD: On daily HD with successful fluid removal today. DM: BSs OK without insulin Plan: Continue mechanical ventilation. Trial of CPAP tomorrow, ? extubate. Continue antibiotics per ID. 05/10/17 17:48 Subjective: Intubated, sedated Objective: Vital Signs Temp Pulse Resp BP Pulse Ox 37.1 C 61 20 139/70 H 98 05/10/17 04:00 05/10/17 17:00 05/10/17 17:00 05/10/17 17:00 05/10/17 17:00 Microbiology 05/08/17 18:55 Blood Panel (PCR) - Final Blood Streptococcus Laboratory Results 05/10/17 05:10 05/10/17 05:10 05/09/17 05/10/17 05/11/17 05:59 05:59 05:59 Intake Total 1238.6 1973.5 Output Total 1900 110 8 Balance -661.4 1863.5 -8 PT 13.7 SEC (12.0-15.0) 05/08/17 17:58 INR 1.03 (0.83-1.16) 05/08/17 17:58 Microbiology 05/08/17 18:55 Blood Blood Panel (PCR) - Final Streptococcus 05/08/17 18:55 Blood Blood Culture - Preliminary 05/08/17 18:55 Blood Alpha Strep Not Pneumoniae Streptococcus Salivarius Physical Exam - Physical Exam General Appearance: no apparent distress, No alert EENT: normal ENT inspection Neck: normal inspection Respiratory: lungs clear, normal breath sounds Cardiac/Chest: regular rate, rhythm, edema Abdomen: normal bowel sounds, non-tender Skin: normal color, warm/dry Extremities: non-tender Neuro/Psych: No alert (sedated) ICD10 Worksheet Patient Problems: Problems Problem Status Onset Altered mental status, unspecified Acute Anemia Acute Chest pain Acute Chest pain Acute End stage renal disease Acute Fluid overload Acute Hyperglycemia Acute Hyperkalemia Acute Hyperkalemia Acute Pancreatitis Acute Pneumonia Acute Renal failure Acute Respiratory failure Acute Syncope Acute
[2017-05-10] MEDS: SEVELAMER HCL 800 MG TAB PO SCH (17:53)
[2017-05-10] MEDS: CHLORHEXIDINE GLUCONATE 15 ML UDL PO SCH ×2 (17:53→20:38)
--- NOTE | 2017-05-10 18:37 | PCMIDPN ---
Assessment/Plan: Assessment/Plan: * Sepsis with Streptococcus salivarius bacteremia: Blood culture show 1/2 sets with growth of Streptococcus salivarius. Unclear etiology at this point. Transthoracic echocardiogram without overt evidence of endocarditis. Will modify antibiotic therapy from vancomycin and cefepime to ceftriaxone 2 g IV daily. Repeat blood cultures to assess for clearing of bacteremia. Continued supportive care and follow clinical course. Discussions continue with consideration for palliative care as possibility. 05/10/17 18:34 Subjective: Intubated and sedated. Objective: Vital Signs Temp Pulse Resp BP Pulse Ox 37.1 C 75 20 97/52 L 94 05/10/17 04:00 05/10/17 17:58 05/10/17 17:58 05/10/17 17:58 05/10/17 17:58 Microbiology 05/08/17 18:55 Blood Panel (PCR) - Final Blood Streptococcus Laboratory Results 05/10/17 05:10 05/10/17 05:10 05/09/17 05/10/17 05/11/17 05:59 05:59 05:59 Intake Total 1238.6 1973.5 609 Output Total 1900 110 13 Balance -661.4 1863.5 596 Blood cultures 1/2 sets Streptococcus salivarius Laboratory Tests 05/10/17 05:10 Random Vancomycin 9.4 - Physical Exam General Appearance: other (Intubated, sedated) EENT: ET Tube, No scleral icterus, No conjunctival petechiae Respiratory: coarse breath sounds Cardiac/Chest: regular rate, rhythm, No systolic murmur Extremities: inflammation (Accessed for dialysis in left upper extremity) Abdomen: non-tender, No distended Skin: No embolic lesions ICD10 Worksheet Patient Problems: Problems Problem Status Onset Altered mental status, unspecified Acute Anemia Acute Chest pain Acute Chest pain Acute End stage renal disease Acute Fluid overload Acute Hyperglycemia Acute Hyperkalemia Acute Hyperkalemia Acute Pancreatitis Acute Pneumonia Acute Renal failure Acute Respiratory failure Acute Syncope Acute
[2017-05-10] MEDS: FAMOTIDINE 20 MG/NACL 50 ML IV SCH (20:38)
[2017-05-11] MEDS: fentaNYL/NACL 100 ML IV SCH (00:13)
[2017-05-11] MEDS: HEPARIN 5,000 UNIT/0.5 ML SYR SC SCH ×3 (05:15→21:40)
[2017-05-11] MEDS: CLOPIDOGREL BISULFATE 75 MG TAB TUBE SCH (08:36)
[2017-05-11] MEDS: CHLORHEXIDINE GLUCONATE 15 ML UDL PO SCH ×2 (08:37→21:40)
[2017-05-11] MEDS: LANSOPRAZOLE SUSP 30MG/10ML UDSYR (Adult) TUBE SCH (08:37)
[2017-05-11] MEDS: SEVELAMER HCL 800 MG TAB PO SCH ×3 (08:38→17:28)
--- NOTE | 2017-05-11 08:48 | PCMIDPN ---
Assessment/Plan: Assessment/Plan: 1. Sepsis with Strep salivarius bacteremia: - Antibiotics tailored to Ceftriaxone now given above. - f/u blood cx 05/11/17 in progress. will follow -possible weaning trial today per RN -wbc has improved overall since admit -TTE without vegetations. - source unclear at this point. -Continue with current therapy. - care coordinated with Rn, hospitalist team. Meds ceftriaxone 2g daily - 05/10/17 s/p vanco, cefepime Subjective: afebrile. intubated, sedated in icu. sister at bedside. FIO2 at 40%. Reviewed with Rn. No overnight events reported. possibly weaning later today. Objective: Vital Signs Temp Pulse Resp BP Pulse Ox 36.8 C 75 20 123/64 H 94 05/11/17 04:00 05/11/17 07:00 05/11/17 07:00 05/11/17 07:00 05/11/17 07:00 Microbiology 05/08/17 18:55 Blood Panel (PCR) - Final Blood Streptococcus Laboratory Results 05/11/17 04:40 05/11/17 04:40 05/10/17 05/11/17 05/12/17 05:59 05:59 05:59 Intake Total 1973.5 1136 Output Total 110 113 Balance 1863.5 1023 - Physical Exam General Appearance: other (intubated, sedated in icu) EENT: ET Tube Respiratory: lungs clear (anteriorly) Cardiac/Chest: regular rate, rhythm Extremities: other (left forearm fistula noted. right hand peripheral IV), No swelling Abdomen: normal bowel sounds, non-tender, soft, distended (mild) Male Genitalia: schroeder Skin: No erythema ICD10 Worksheet Patient Problems: Problems Problem Status Onset Altered mental status, unspecified Acute Anemia Acute Chest pain Acute Chest pain Acute End stage renal disease Acute Fluid overload Acute Hyperglycemia Acute Hyperkalemia Acute Hyperkalemia Acute Pancreatitis Acute Pneumonia Acute Renal failure Acute Respiratory failure Acute Syncope Acute
[2017-05-11] MEDS ORDERED: SODIUM POLY SULF 15 GM/60 ML BOTTLE TUBE SCH (09:00)
[2017-05-11] MEDS: PROPOFOL/EMULSION 100 ML IV SCH (09:05)
--- NOTE | 2017-05-11 12:35 | PDINTPN ---
Rfid Manager Progress Note Assessment/Plan: Assessment: Sepsis: 1/2 blood cultures positive for Strep species. On CTX, got Vanco. Weaning off NE. WBC coming down. Afebrile Respiratory failure: Likely multifactorial, with fluid overload, sepsis/ARDS likely contributing. Weaning FiO2, VE still fairly high. ESRD: On daily HD with fluid removal last 2 days. DM: BSs OK without insulin Plan: Continue mechanical ventilation. Trial of CPAP after HD, ? extubate. Follow repeat Blood Cxs. Will address code states with family. 05/11/17 12:34 05/11/17 12:35 Subjective: Intubated, sedated. Objective: Vital Signs Temp Pulse Resp BP Pulse Ox 37.2 C 93 20 132/90 H 97 05/11/17 11:00 05/11/17 12:00 05/11/17 12:00 05/11/17 12:00 05/11/17 12:00 Microbiology 05/08/17 18:55 Blood Panel (PCR) - Final Blood Streptococcus Laboratory Results 05/11/17 04:40 05/11/17 04:40 05/10/17 05/11/17 05/12/17 05:59 05:59 05:59 Intake Total 1973.5 1136 Output Total 110 113 Balance 1863.5 1023 PT 13.7 SEC (12.0-15.0) 05/08/17 17:58 INR 1.03 (0.83-1.16) 05/08/17 17:58 Physical Exam - Physical Exam General Appearance: no apparent distress, No alert (sedated) EENT: normal ENT inspection Neck: normal inspection Respiratory: lungs clear, normal breath sounds Cardiac/Chest: regular rate, rhythm, No edema Abdomen: normal bowel sounds, non-tender Skin: normal color, warm/dry Extremities: normal inspection Neuro/Psych: No alert, No normal mood/affect ICD10 Worksheet Patient Problems: Problems Problem Status Onset Altered mental status, unspecified Acute Anemia Acute Chest pain Acute Chest pain Acute End stage renal disease Acute Fluid overload Acute Hyperglycemia Acute Hyperkalemia Acute Hyperkalemia Acute Pancreatitis Acute Pneumonia Acute Renal failure Acute Respiratory failure Acute Syncope Acute
--- NOTE | 2017-05-11 13:09 | SOAPPROG ---
SOAP Progress Note Assessment/Plan: Assessment: ESRD, HD yesterday and today AVF not working great, will check an ultrasound, may need fistulagram hypocalcemia, improved resp failure on the vent, attempting to wean later today streptococcal bacteremia/sepsis Plan: Hold on HD tomorrow supp Ca++ as necessary continue support Abx for strep bacteremia Family meeting earlier today, pressing on as-is 05/09/17 12:05 05/11/17 13:07 Objective: Vital Signs Temp Pulse Resp BP Pulse Ox 37.2 C 93 20 132/90 H 97 05/11/17 11:00 05/11/17 12:00 05/11/17 12:00 05/11/17 12:00 05/11/17 12:00 Microbiology 05/08/17 18:55 Blood Panel (PCR) - Final Blood Streptococcus Laboratory Results 05/11/17 04:40 05/11/17 04:40 05/10/17 05/11/17 05/12/17 05:59 05:59 05:59 Intake Total 1973.5 1136 Output Total 110 113 Balance 1863.5 1023 PT 13.7 SEC (12.0-15.0) 05/08/17 17:58 INR 1.03 (0.83-1.16) 05/08/17 17:58 ICD10 Worksheet Patient Problems: Problems Problem Status Onset Altered mental status, unspecified Acute Anemia Acute Chest pain Acute Chest pain Acute End stage renal disease Acute Fluid overload Acute Hyperglycemia Acute Hyperkalemia Acute Hyperkalemia Acute Pancreatitis Acute Pneumonia Acute Renal failure Acute Respiratory failure Acute Syncope Acute
--- NOTE | 2017-05-11 14:59 | HOSPPROG ---
Hospitalist Progress Note Assessment/Plan: # acute hypoxic respiratory failure - suspect multifactorial-potential pneumonia +/- volume overload Oxygen saturations 100% on 40% FiO2 CXR (personally reviewed and interpreted) suggestive of volume overload - continue ventilatory support - continue IV antibiotics - continue hemodialysis per normal schedule - discussing possible extubation today-if patient remains stable and safely weanable from sedation # septic shock (hypotension on pressors, leukocytosis, resp failure), source is bacteremia- improving patient afebrile white count improved 13-> 8 echo (reviewed) diastolic dysfunction with the EF estimate is 60% no segmental wall motion abnormalities Telemetry (personally reviewed and interpreted) sinus with intermittent tachycardia - weaning levophed today as able - continue antibiotics # streptococcus bacteremia - cont ceftriaxone per ID # ESRD - HD per renal # hyperkalemia - admission potassium 6.5- resolved s/p HD # CAD - plavix, hold BB secondary to hypotension # hx CVA - plavix, hold BB # DM - BS 96-112- has not required insulin Discussed the case with Dr. Canales-is patient can be weaned from sedation effectively will work towards possible extubation today Subjective: Agitated off sedation Objective: Vital Signs Temp Pulse Resp BP Pulse Ox 37.2 C 101 H 10 L 132/57 H 100 05/11/17 11:00 05/11/17 14:00 05/11/17 14:00 05/11/17 14:00 05/11/17 14:00 Microbiology 05/08/17 18:55 Blood Panel (PCR) - Final Blood Streptococcus Laboratory Results 05/11/17 04:40 05/11/17 04:40 05/10/17 05/11/17 05/12/17 05:59 05:59 05:59 Intake Total 1973.5 1136 Output Total 110 113 Balance 1863.5 1023 PT 13.7 SEC (12.0-15.0) 05/08/17 17:58 INR 1.03 (0.83-1.16) 05/08/17 17:58 - Physical Exam Constitutional: chronically ill appearing Eyes: anicteric sclera Ears, Nose, Mouth, Throat: dry mucous membranes Cardiovascular: regular rate and rhythym Respiratory: No expiratory wheeze Gastrointestinal: normoactive bowel sounds Genitourinary: no bladder fullness Skin: warm Musculoskeletal: No asymmetric calves Neurologic: No AAOx3 Psychiatric: No agitated Lymph, Heme, Immunologic: no cervical LAD ICD10 Worksheet Patient Problems: Problems Problem Status Onset Altered mental status, unspecified Acute Anemia Acute Chest pain Acute Chest pain Acute End stage renal disease Acute Fluid overload Acute Hyperglycemia Acute Hyperkalemia Acute Hyperkalemia Acute Pancreatitis Acute Pneumonia Acute Renal failure Acute Respiratory failure Acute Syncope Acute
[2017-05-11] MEDS: cefTRIAXone 2 GM in STERILE WATER INJ 20 ML IV SCH (16:46)
[2017-05-11] MEDS ORDERED: IPRATROPIUM/ALBUTEROL 3 ML DEYVIAL IH PRN (20:27)
[2017-05-11] MEDS ORDERED: ALBUTEROL 3 ML DEYVIAL ONE (20:29)
[2017-05-11] MEDS ORDERED: METOPROLOL TARTRATE 25 MG TAB PO SCH (21:00)
[2017-05-11] MEDS: FAMOTIDINE 20 MG/NACL 50 ML IV SCH (21:40)
[2017-05-12] MEDS: HEPARIN 5,000 UNIT/0.5 ML SYR SC SCH ×2 (06:32→14:43)
[2017-05-12] MEDS: LANSOPRAZOLE SUSP 30MG/10ML UDSYR (Adult) TUBE SCH (07:56)
[2017-05-12] MEDS ORDERED: ACETAMINOPHEN 325 MG TAB PO PRN (08:00)
[2017-05-12] MEDS ORDERED: ONDANSETRON DISINTEGRATING 4 MG TAB PO PRN (08:00)
--- NOTE | 2017-05-12 08:00 | SOAPPROG ---
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 On NRB mask. Opens eyes and tracks me, not answering my questions. Objective: Vital Signs Temp Pulse Resp BP Pulse Ox 36.6 C 89 24 H 135/90 H 98 05/12/17 03:50 05/12/17 06:00 05/12/17 06:00 05/12/17 06:00 05/12/17 06:00 Microbiology 05/08/17 18:55 Blood Panel (PCR) - Final Blood Streptococcus Laboratory Results 05/12/17 03:50 05/12/17 03:50 05/11/17 05/12/17 05/13/17 05:59 05:59 05:59 Intake Total 1136 483 Output Total 113 1710 Balance 1023 -1227 PT 13.7 SEC (12.0-15.0) 05/08/17 17:58 INR 1.03 (0.83-1.16) 05/08/17 17:58 Physical Exam - Physical Exam General Appearance: alert, no apparent distress, other (on NRB mask) Neck: supple Respiratory: other (coarse bs bilat) Cardiac/Chest: regular rate, rhythm Abdomen: normal bowel sounds, non-tender, soft Extremities: other (no edema, AVF with whistle, weaker thrill proximally) Neuro/Psych: alert, other (tracks, opens eyes, not answering my questions) ICD10 Worksheet Patient Problems: Problems Problem Status Onset Altered mental status, unspecified Acute Anemia Acute Chest pain Acute Chest pain Acute End stage renal disease Acute Fluid overload Acute Hyperglycemia Acute Hyperkalemia Acute Hyperkalemia Acute Pancreatitis Acute Pneumonia Acute Renal failure Acute Respiratory failure Acute Syncope Acute
[2017-05-12] MEDS ORDERED: CLOPIDOGREL BISULFATE 75 MG TAB TUBE SCH (09:00)
[2017-05-12] MEDS ORDERED: PANTOPRAZOLE SODIUM 40 MG TAB PO SCH (09:00)
[2017-05-12] MEDS ORDERED: METOPROLOL TARTRATE 25 MG TAB TUBE SCH (09:00)
[2017-05-12] MEDS: SEVELAMER HCL 800 MG TAB PO SCH ×2 (09:59→11:00)
--- NOTE | 2017-05-12 11:40 | PDINTPN ---
Legal Editor Progress Note Assessment/Plan: Assessment: Sepsis: 1/2 blood cultures positive for Strep species. On CTX, got Vanco. WBC coming down. Afebrile Respiratory failure: Likely multifactorial, with fluid overload, sepsis/ARDS likely contributing. Weaning FiO2, VE still fairly high. ESRD: On daily HD with fluid removal last 2 days. DM: BSs OK without insulin Plan: Follow repeat Blood Cxs. Discussed code status with family yesterday, they wish him to be DNR. Long talk with family again today via slot technician, they are leaning towards comfort care, but want to notify 2 brothers first. I reinforced that I think he is dying and unlikely to get back to a good quality of life, and supported their decision. D/w RN, Drs. Avila, Ghulam, Rod 40 minutes total time 05/12/17 11:44 05/12/17 11:45 Subjective: Minimally responsive, unable to answer questions. Objective: Vital Signs Temp Pulse Resp BP Pulse Ox 37.1 C 78 15 154/82 H 96 05/12/17 08:00 05/12/17 10:00 05/12/17 10:00 05/12/17 10:00 05/12/17 10:00 Microbiology 05/08/17 18:55 Blood Panel (PCR) - Final Blood Streptococcus 05/08/17 18:59 Urine Culture - Final Urine,Clean Catch Staphylococcus Epidermidis Laboratory Results 05/12/17 03:50 05/12/17 03:50 05/11/17 05/12/17 05/13/17 05:59 05:59 05:59 Intake Total 1136 483 Output Total 113 1710 Balance 1023 -1227 PT 13.7 SEC (12.0-15.0) 05/08/17 17:58 INR 1.03 (0.83-1.16) 05/08/17 17:58 Physical Exam - Physical Exam General Appearance: no apparent distress EENT: normal ENT inspection Neck: normal inspection Respiratory: No respiratory distress Cardiac/Chest: regular rate, rhythm, No edema Abdomen: normal bowel sounds, non-tender Skin: normal color, warm/dry Extremities: normal inspection Neuro/Psych: No alert ICD10 Worksheet Patient Problems: Problems Problem Status Onset Altered mental status, unspecified Acute Anemia Acute Chest pain Acute Chest pain Acute End stage renal disease Acute Fluid overload Acute Hyperglycemia Acute Hyperkalemia Acute Hyperkalemia Acute Pancreatitis Acute Pneumonia Acute Renal failure Acute Respiratory failure Acute Syncope Acute
--- NOTE | 2017-05-12 12:03 | HOSPPROG ---
Hospitalist Progress Note Assessment/Plan: # acute hypoxic respiratory failure - suspect multifactorial- pneumonia +/- volume overload - successfully extubated yesterday Vomiting/aspiration event post extubation-Oxygen saturations 93% on 12 L facemask CXR (personally reviewed and interpreted) suggestive of volume overload - continue supplemental oxygen - continue IV antibiotics - discussing goals of care with family however recommendation for comfort care has been made # septic shock (hypotension on pressors, leukocytosis, resp failure), source is bacteremia- improving patient afebrile white count improved 13-> 9 echo (reviewed) diastolic dysfunction with the EF estimate is 60% no segmental wall motion abnormalities Telemetry (personally reviewed and interpreted) sinus rhythm 70s to 80s - continue supportive care - continue antibiotics # streptococcus bacteremia - cont ceftriaxone per ID # ESRD - discussing the continuation of HD -recommendations have been made for comfort care # hyperkalemia - admission potassium 6.5- resolved s/p HD # CAD - plavix, hold BB secondary to hypotension # hx CVA - plavix, hold BB # DM - BS 96-112- has not required insulin Discussed the case with Dr. Canales-we have recommended comfort care moving forward patient's family is discussing expect decisions later today Subjective: Vomiting -post extubation Objective: Vital Signs Temp Pulse Resp BP Pulse Ox 37.1 C 78 15 154/82 H 96 05/12/17 08:00 05/12/17 10:00 05/12/17 10:00 05/12/17 10:00 05/12/17 10:00 Microbiology 05/08/17 18:55 Blood Panel (PCR) - Final Blood Streptococcus 05/08/17 18:59 Urine Culture - Final Urine,Clean Catch Staphylococcus Epidermidis Laboratory Results 05/12/17 03:50 05/12/17 03:50 05/11/17 05/12/17 05/13/17 05:59 05:59 05:59 Intake Total 1136 483 Output Total 113 1710 Balance 1023 -1227 PT 13.7 SEC (12.0-15.0) 05/08/17 17:58 INR 1.03 (0.83-1.16) 05/08/17 17:58 - Physical Exam Constitutional: chronically ill appearing Eyes: anicteric sclera Ears, Nose, Mouth, Throat: dry mucous membranes Cardiovascular: regular rate and rhythym Respiratory: rhonchi Gastrointestinal: normoactive bowel sounds Genitourinary: no bladder fullness Skin: warm Musculoskeletal: No asymmetric calves Neurologic: No AAOx3 Psychiatric: No agitated Lymph, Heme, Immunologic: no cervical LAD ICD10 Worksheet Patient Problems: Problems Problem Status Onset Altered mental status, unspecified Acute Anemia Acute Chest pain Acute Chest pain Acute End stage renal disease Acute Fluid overload Acute Hyperglycemia Acute Hyperkalemia Acute Hyperkalemia Acute Pancreatitis Acute Pneumonia Acute Renal failure Acute Respiratory failure Acute Syncope Acute
[2017-05-12 14:13] VITALS: RESP 16; TEMP 98.9
--- NOTE | 2017-05-12 14:30 | ASMTCMCOM ---
CM Note CM Note Notes: Patient remains in critical condition. The care team has recommended comfort measures to the family. Family wishes to discuss among themselves and will let us know. Date Signed: 05/12/2017 02:29 PM Electronically Signed By:Sharlene Sevilla RN
--- NOTE | 2017-05-12 14:50 | PCMIDPN ---
Assessment/Plan: Assessment: Streptococcal bacteremia in the setting of ongoing hemodialysis. Multiple isolates were identified. Species were salivarius and parasanguinus. Patient is currently appropriately covered with ceftriaxone monotherapy. He is off pressors. He is extubated. There is continued discussion amongst the family about whether the patient is interested in moving to comfort care. In the meantime continue ceftriaxone. Plan: 1. Continue ceftriaxone monotherapy. 2. Monitor follow-up blood cultures from 05/11/2017. 3. Follow patient's clinical course as well as the wishes of patient and family members. Subjective: Patient is resting in his bed in the intensive care unit. He is getting oxygen by face mask but no longer intubated. Patient is also off all pressors. He is somewhat confused per family. Patient and family is Moroccan-speaking only. Objective: Ceftriaxone # 2 Vital Signs Temp Pulse Resp BP Pulse Ox 37.2 C 85 16 168/76 H 96 05/12/17 14:00 05/12/17 14:00 05/12/17 14:00 05/12/17 14:00 05/12/17 14:00 Microbiology 05/08/17 18:55 Blood Panel (PCR) - Final Blood Streptococcus 05/08/17 18:59 Urine Culture - Final Urine,Clean Catch Staphylococcus Epidermidis Laboratory Results 05/12/17 03:50 05/12/17 03:50 05/11/17 05/12/17 05/13/17 05:59 05:59 05:59 Intake Total 1136 483 Output Total 113 1710 Balance 1023 -1227 - Physical Exam General Appearance: WD/WN, no apparent distress, toxic, No alert Respiratory: lungs clear, No normal breath sounds Cardiac/Chest: regular rate, rhythm, No tachycardia Skin: normal color, warm/dry, No rash ICD10 Worksheet Patient Problems: Problems Problem Status Onset Altered mental status, unspecified Acute Anemia Acute Chest pain Acute Chest pain Acute End stage renal disease Acute Fluid overload Acute Hyperglycemia Acute Hyperkalemia Acute Hyperkalemia Acute Pancreatitis Acute Pneumonia Acute Renal failure Acute Respiratory failure Acute Syncope Acute
[2017-05-12] MEDS ORDERED: LORazepam 2 MG/ML INJ IVP PRN ×2 (15:58→20:34)
[2017-05-12] MEDS: HYDROmorphONE/DILAUDID 2 MG/ML INJ IVP PRN ×2 (20:39→22:39)
[2017-05-12 20:43] VITALS: BP 100/47; PULSE 129; O2SAT 63
--- NOTE | 2017-05-13 15:39 | GDS ---
[f rep st] DISCHARGE SUMMARY DATE OF : 05/13/2017 HISTORY OF PRESENT ILLNESS: A 76-year-old male, with a history of hemodialysis-dependent end-stage r enal disease, who presents with acute respiratory distress and failure. HOSPITAL COURSE: Patient was admitted to the intensive care unit, intubated, provided high-level cri tical care support for respiratory failure and sepsis secondary to Streptococcus bacteremia. Patient was successfully extubated on 05/10/2017, but had an aspiration event post extubation, leaving him re quiring high levels of oxygen for respiratory support. Patient was found to have a poorly functioning hemodialysis graft as well. Nephrology, Infectious Disease, and Pulmonary Critical Care did sit with the family and establish goals of care and felt most appropriate to provide comfort care only, as th e patient had clearly verbalized his desire to not continue on with hemodialysis. Patient was transit ioned to comfort care and passed naturally on 05/13/2017. /[id number]/MODL
== END 2017-05-13 09:53 | disposition expired | DRG 871 ==
LOC: EDUNIT# → F2N 19:42 → F1N 05-12 22:16
PROVIDERS: ADMIT Hospitalist; ATTEND Hospitalist
PROC: 0BH17EZ Insertion of Endotracheal Airway into Trachea, Via Natural or Artificial Opening (ICD-10-PCS; principal; 2017-05-08)
PROC: 5A1945Z Respiratory Ventilation, 24-96 Consecutive Hours (ICD-10-PCS; principal; 2017-05-08)
PROC: 06HM33Z Insertion of Infusion Device into Right Femoral Vein, Percutaneous Approach (ICD-10-PCS; 2017-05-09)
DX: A40.9 Streptococcal sepsis, unspecified (principal); J96.01 Acute respiratory failure with hypoxia; I13.2 Hypertensive heart and chronic kidney disease with heart failure and with stage 5 chronic kidney disease, or end stage renal disease; N18.6 End stage renal disease; I50.30 Unspecified diastolic (congestive) heart failure; J44.9 Chronic obstructive pulmonary disease, unspecified; E11.9 Type 2 diabetes mellitus without complications; I25.10 Atherosclerotic heart disease of native coronary artery without angina pectoris; E78.5 Hyperlipidemia, unspecified; E87.5 Hyperkalemia; Z86.73 Personal history of transient ischemic attack (TIA), and cerebral infarction without residual deficits; Z99.2 Dependence on renal dialysis; Z51.5 Encounter for palliative care; Z66 Do not resuscitate
CPT/HCPCS: 82947-QW; 86705-90; J0610; J0692; J0696; J1170; J1644; J2060; J2250; J2270; J2405; J2704; J3010; J3370; J7613